=== PATIENT | male | born 1945 | race Caucasian/White ===

== ENCOUNTER 2016-05-14 16:17 | Emergency (ER) | payer OTHER, MEDICARE ==
--- NOTE | 2016-05-14 16:04 | EDPHY ---
H & P Time Seen by Provider: 05/14/16 16:17 HPI/ROS: CHIEF COMPLAINT: Irregular tachycardia, chest discomfort. HISTORY OF PRESENT ILLNESS: This patient is an anticoagulated 61 year old male arriving via EMS from [facility] who presents to the Emergency Department following an episode of irregular tachycardia and associated chest discomfort. Rapid heart rate began just TOUCHER UP while performing rehab exercises for a thumb injury. He describes feeling an unusual sensation in his chest and nausea at the start of the episode. Upon arrival, he continues to complain of chest discomfort, nausea, and lightheadedness. He has a history of multiple episodes of atrial flutter following mitral valve surgery in March 2015; his atrial flutter was treated using cardioversion. He has a cardiac pacemaker that was placed due to complete heart block complication during his initial surgery. He is followed by Dr. Benito Faith, etl bi developer. REVIEW OF SYSTEMS: A ten point review of systems was performed and is negative with the exception of the items mentioned in the HPI. Source: Patient, EMS Exam Limitations: No limitations - Medical/Surgical History PMH: 1. Atrial and mitral valve surgery 2014 2. Pacemaker placed for complete heart block 3. Atrial flutter 4. Hypothyroid - Social History Additional Social History: He is . He does not use tobacco products. - Physical Exam Exam: General Appearance: Alert. No distress. Vital signs reviewed. Heart rate in the 130s. BP 127/97. Eyes: Pupils equal and round, no conjunctival injection, no discharge. Anicteric. ENT, Mouth: Mucous membranes are moist, no oropharyngeal erythema or edema. Neck: No lymphadenopathy, supple. No carotid bruits. Respiratory: Lungs are clear to auscultation; no wheezes, rales, or rhonchi. Cardiovascular: Tachycardia; no murmur, rub, or gallop appreciated. Gastrointestinal: Abdomen is soft and nontender, no masses or organomegaly, bowel sounds normal. Skin: Warm and dry, no rashes on exposed skin, normal color. Back: Nontender to palpation over the thoracolumbar spine. No CVAT. Extremities: No lower extremity edema, no calf tenderness or swelling. Neurological: Alert and oriented. Moving all four extremities easily and equally. Psychiatric: Normal affect. Constitutional: Initial Vital Signs Temperature (C) 37.0 C 05/14/16 16:35 Heart Rate 137 H 05/14/16 16:35 Respiratory Rate 20 05/14/16 16:35 Blood Pressure 127/96 H 05/14/16 16:35 O2 Sat (%) 98 05/14/16 16:35 O2 Delivery Mode [Post Nasal Cannula Procedure 2nd] O2 Delivery Mode [Post Nasal Cannula Procedure 1st] O2 Delivery Mode [Procedural Non-Rebreather Mask 4th] O2 Delivery Mode [Procedural Non-Rebreather Mask 3rd] O2 Delivery Mode [Procedural Non-Rebreather Mask 2nd] O2 Delivery Mode [Procedural Non-Rebreather Mask 1st] O2 Delivery Mode [.Immediate Non-Rebreather Mask Pre-Procedure] O2 Delivery Mode Room Air O2 (L/minute) [Post Procedure 2 2nd] O2 (L/minute) [Post Procedure 2 1st] O2 (L/minute) [Procedural 4th] 15 O2 (L/minute) [Procedural 3rd] 15 O2 (L/minute) [Procedural 2nd] 15 O2 (L/minute) [Procedural 1st] 15 O2 (L/minute) [.Immediate Pre- 15 Procedure] O2 (L/minute) 15 Allergies/Adverse Reactions: ceftriaxone sodium [From Rocephin] Allergy (Severe, Verified 05/14/16 16:38) Other-Enter Comments cyclobenzaprine HCl [From Flexeril] Allergy (Verified 05/14/16 16:38) Itching sulfamethoxazole [From Bactrim] Allergy (Verified 05/14/16 16:38) trimethoprim [From Bactrim] Allergy (Verified 05/14/16 16:38) Home Medications: Medication Instructions Recorded Melatonin [Melatonin 3 MG (*)] 3 mg PO HS PRN 04/15/15 morphINE SR [Ms Contin/Oramorph 15 15 mg PO Q8 PRN 16 mg (*)] Dabigatran Etexilate Mesyl 150 mg PO BID 09/05/15 [Pradaxa 150 MG (*)] Polyethylene Glycol 3350 [Miralax 17 gm PO DAILY PRN 09/05/15 17 gm (*)] Levothyroxine [Synthroid 100 mcg 100 mcg PO DAILY06 03/28/16 (*)] oxyCODONE IR [Oxycodone Ir (*)] 5 - 10 mg PO Q4 PRN 03/28/16 Amitriptyline HCl [Elavil] 25 mg PO HS #10 tab 03/29/16 Medical Decision Making - Diagnostics EKG Interpretation: The 12 lead EKG was interpreted by myself: Atrial flutter with complete AV block , rate 141. See hard copy and/or "tracemaster" electronic copy for interpretation. Post-cardioversion EKG obtained and interpreted by myself: sinus rhythm rate 79. See hard copy and/or "tracemaster" electronic copy for interpretation. Procedures: Procedure: Procedural sedation. Indication: Cardioversion A pre-sedation evaluation was completed on the patient at 1652. The patient has an ASA class II and modified Mallampati class 3 airway. Patient is an appropriate candidate for procedural sedation. The risks, benefits, alternatives of sedation were discussed with the patient. Consent was obtained. The patient was pre-oxygenated with 100% O2 on a [id number] and moved to the procedure room where airway rescue equipment is available. A time out was observed. The patient was sedated with 100mg IV propofol. The patient was monitored with continuous pulse oximetry, gambling monitor, and end tidal CO2. There were no complications and no hypoxemia. The patient tolerated the procedure well and returned to baseline. I remained at the bedside for the sedation. The total time I spent in the procedural sedation was 8 minutes. ED Course/Re-evaluation: 1617: Took EMS report at bedside. Vitals stable through event and transport. HR 133. 94% on RA, BP 132/99, bgl 153. Prior medical records reviewed by myself: The patient has multiple visits to the ED this year for atrial flutter following mitral valve surgery in March 2015. The mitral valve procedure was complicated with complete heart block for which the patient has a pacemaker. In his most recent visit for similar complaints, the patient's pacemaker was interrogated and he was given amiodarone for conversion at that time without improvement. He was ultimately cardioverted. EKG and labs obtained. IV established. Vagal maneuvers attempted without improvement. HR remains at 144. 1638: Consultation with Dr. Benito Faith, cardiology, who will visit the patient in the ED and proceed with cardioversion. The patient tells me that he last ate at 1230 today when he had a lunch including salad and a sandwich. 1658: Dr. Faith is at bedside. The patient is placed under procedural sedation (see procedure note) and cardioversion is performed without complication. Repeat EKG obtained. 1725: Patient re-examined. He remains in sinus rhythm with a heart rate in the 70s. He does not have chest pain or shortness of breath. On auscultation is heart is regular. Lungs are clear. He will return home to follow up with his etl bi developer. Differential Diagnosis: Differential diagnosis includes but is not limited to myocardial ischemia, cardiomyopathy, valvular heart disease, sick sinus, thyrotoxicosis, PE, and infection. - Data Points Medications Given: Discontinued Medications Sodium Chloride (Ns) 1,000 mls @ 0 mls/hr IV ONCE ONE PRN Reason: Wide Open Stop: 05/14/16 18:24 Last Admin: 05/14/16 16:52 Dose: 1,000 mls Propofol (Diprivan) 100 mg IVP EDNOW ONE Stop: 05/14/16 18:24 Last Admin: 05/14/16 16:59 Dose: 100 mg Departure - Departure Disposition: Home, Routine, Self-Care Clinical Impression: Atrial flutter Qualifiers: Qualifier Code: (I48.92) Unspecified atrial flutter Condition: Good Instructions: Atrial Flutter (ED) Additional Instructions: 1. Call to schedule a follow-up appointment with Dr. Faith. 2. Return to the Emergency Department if you experience chest pain or discomfort , lightheadedness or dizziness, heart palpitations, nausea, or other worsening of condition. Referrals: Benito Faith MD [Medical Doctor] - As per Instructions Report Scribed for: Kimmy Nicole Report Scribed by: Nadine Ron Date of Report: 05/14/16 Time of Report: 16:05 Physician Review and Approval Statement: 05/14/16 16:04 Portions of this note were transcribed by the medical doctor. I, Dr. Kimmy Nicole, personally performed the history, physical exam, and medical decision- making; and confirmed the accuracy of the information in the transcribed note.
--- NOTE | 2016-05-14 16:28 | CPEKG ---
Heart Rate: 141 RR Interval: 426 QRSD Interval: 90 QT Interval: 344 QTC Interval: 527 QRS [place]: -3 T Wave [place]: 82 EKG Severity - ABNORMAL ECG - EKG Impression: A-FLUTTER/FIBRILLATION W/ COMPLETE AV BLOCK EKG Impression: PROBABLE INFERIOR INFARCT, OLD EKG Impression: PROLONGED QT INTERVAL Electronically Signed By: Kimmy Nicole 15-May-2016 10:25:30
[2016-05-14] MEDS ORDERED: ADENOSINE 6 MG/2 ML VIAL ONE (16:37)
[2016-05-14] MEDS ORDERED: PROPOFOL 200 MG/20 ML VIAL ONE (16:49)
--- NOTE | 2016-05-14 17:08 | CPEKG ---
Heart Rate: 79 RR Interval: 759 P-R Interval: 172 QRSD Interval: 96 QT Interval: 400 QTC Interval: 459 P [place]: 60 QRS [place]: -27 T Wave [place]: 68 EKG Severity - OTHERWISE NORMAL ECG - EKG Impression: SINUS RHYTHM EKG Impression: BORDERLINE LEFT AXIS DEVIATION Electronically Signed By: Kimmy Nicole 15-May-2016 10:25:20
--- NOTE | 2016-05-14 17:40 | CPIP ---
[f rep st] INVASIVE CARDIAC PROCEDURE DATE OF PROCEDURE: 05/14/2016 PROCEDURE: Elective direct current cardioversion. INDICATION FOR THE PROCEDURE: Persistent atrial flutter. HISTORY: Mr. Renato Boggs is a patient well-known to me from prior pacer insertion, sick sinus syndr ome, and paroxysmal atrial flutter, who presents to the emergency department for complaint of palpita tions and rapid heartbeat. He feels fatigued and short of breath, which is very similar to his prior symptoms. He denies recent travel. No leg or arm swelling. I was asked to see the patient for Car diology consultation, specifically for urgent cardioversion. NAME OF PROCEDURE: After n.p.o. status was confirmed and consent was obtained, the patient received propofol under the care of Dr. Kimmy Nicole, the emergency department physician. After adequate con scious sedation had been achieved, the patient underwent elective cardioversion with 100 joules of sy nchronized countershock delivered with the patch in the anterior-posterior position with subsequent r eturn of the rhythm to an atrial paced and V sensed rhythm. IMPRESSION: Successful elective direct current cardioversion. The patient will be discharged to [facility] once he is able to ambulate and take p.o. without assistance. He has been instructed to avoid caff eine and alcohol, strenuous activity for the next 14 days. /[id number]/MODL
[2016-05-14] MEDS ORDERED: PROPOFOL 200 MG/20 ML VIAL IVP ONE (18:23)
[2016-05-14] MEDS ORDERED: NS 1,000 ML IV ONE (18:23)
[2016-05-14 18:52] VITALS: BP 114/75; PULSE 71; RESP 16; O2SAT 96
[2016-05-14 18:53] VITALS: TEMP 98.1
== END 2016-05-14 18:52 | disposition home or self-care (01) ==
LOC: EDUNIT#
DX: I48.92 Unspecified atrial flutter (principal); Z95.0 Presence of cardiac pacemaker
CPT/HCPCS: 93005; 96374; 99285; J2704; J0153

== ENCOUNTER → 2016-05-31 | Outpatient (CLI) | payer OTHER, MEDICARE | LOC: FCPNEURO 20:00 | PROVIDERS: ATTEND Psychiatry & Neurology Sleep Medicine | DX: G47.33 Obstructive sleep apnea (adult) (pediatric) (principal) ==

== ENCOUNTER → 2016-11-05 | Outpatient (CLI) | payer OTHER, MEDICARE | LOC: FIMAGING 09:31 | PROVIDERS: ATTEND Physical Medicine & Rehabilitation | DX: M50.30 Other cervical disc degeneration, unspecified cervical region (principal); M47.892 Other spondylosis, cervical region; M12.88 Other specific arthropathies, not elsewhere classified, other specified site; M99.71 Connective tissue and disc stenosis of intervertebral foramina of cervical region; M43.22 Fusion of spine, cervical region; M43.24 Fusion of spine, thoracic region ==

== ENCOUNTER 2017-01-03 15:03 | Observation (INO) | payer OTHER, MEDICARE ==
--- NOTE | 2017-01-03 15:45 | CPEKG ---
Heart Rate: 131 RR Interval: 458 QRSD Interval: 88 QT Interval: 324 QTC Interval: 479 QRS [place]: 19 T Wave [place]: 80 EKG Severity - ABNORMAL ECG - EKG Impression: LIKELY ATRIAL FLUTTER EKG Impression: BORDERLINE PROLONGED QT INTERVAL EKG Impression: WITH 14 MAY 2016 AT 17:04, ATRIAL FLUTTER AND PROLONGED QT NOW PRESENT Electronically Signed By: Meghana Tyler 04-Jan-2017 21:18:34
--- NOTE | 2017-01-03 15:53 | EDPHY ---
H & P Time Seen by Provider: 01/03/17 15:52 HPI/ROS: Chief complaint. Palpitations HPI. 71-year-old male presents emergency department with fast and irregular heart rate since this morning. He is symptomatic with this including dizziness and fatigue with walking. He notes dyspnea on exertion today. He has had upper respiratory symptoms for the last several days and has been used K shins. He does have a previous history of atrial flutter as well as mitral valve repair and is on Eliquis. However he is not on medication for rate control. No fever. No abdominal pain. No unusual leg pain or swelling. ROS Constitutional. no fever/chills, no weakness Eyes. no problems with vision ENT. Congestion Cardiovascular. No chest pain. Fast irregular heart rate today Respiratory. Slight shortness of breath on exertion Abdominal. no abdominal pain, no nausea/vomiting, no diarrhea . no problems urinating MS. no calf pain/swelling, no neck/back pain, no joint pain Skin. no rash Lymph. no swollen glands Neuro. no headache, no dizziness, no difficulty walking or with speech Past Medical/Surgical History: Past medical history is significant for mitral valve regurgitation and repair. Pacemaker. Atrial flutter. Hypothyroidism, congestive heart failure, depression, Social History: , nonsmoker, no alcohol Smoking Status: Never smoked Physical Exam: General Appearance: Alert well-developed male moderate distress vital signs significant for heart rate 128 Eyes: Pupils equal and round no pallor or injection. ENT, Mouth: Mucous membranes are moist. Respiratory: There are no retractions, lungs are clear to auscultation. Cardiovascular: Irregularly irregular rate and rhythm Gastrointestinal: Abdomen is soft and nontender, no masses, bowel sounds normal. Neurological: Awake and alert, sensory and motor exams grossly normal. Skin: Warm and dry, no rashes. Musculoskeletal: Neck is supple nontender. Extremities symmetrical, full range of motion. Psychiatric: Patient is oriented X 3, there is no agitation. Constitutional: Initial Vital Signs Temperature (C) 36.4 C 01/03/17 15:20 Heart Rate 128 H 01/03/17 15:20 Respiratory Rate 16 01/03/17 15:20 Blood Pressure 105/70 01/03/17 15:20 O2 Sat (%) 98 01/03/17 15:20 O2 Delivery Mode Room Air Allergies/Adverse Reactions: ceftriaxone sodium [From Rocephin] Allergy (Severe, Verified 01/03/17 15:28) Other-Enter Comments cyclobenzaprine HCl [From Flexeril] Allergy (Verified 01/03/17 15:28) Itching sulfamethoxazole [From Bactrim] Allergy (Verified 01/03/17 15:28) trimethoprim [From Bactrim] Allergy (Verified 01/03/17 15:28) Home Medications: Medication Instructions Recorded Melatonin [Melatonin 3 MG (*)] 3 mg PO HS PRN 04/15/15 morphINE SR [Ms Contin/Oramorph 15 15 mg PO ,06/12/15 mg (*)] Levothyroxine [Synthroid 100 mcg 100 mcg PO DAILY06 03/28/16 (*)] oxyCODONE IR [Oxycodone Ir (*)] 5 - 10 mg PO Q4 PRN 03/28/16 Amitriptyline HCl [Elavil] 25 mg PO HS #10 tab 03/29/16 Acetaminophen [Tylenol ES 500 mg 500 mg PO Q6 PRN 01/03/17 (*)] Apixaban [Eliquis] 5 mg PO BID 01/03/17 Escitalopram Oxalate [Lexapro] 10 mg PO HS 01/03/17 Herbals/Supplements -Info Only 1 ea PO DAILY 01/03/17 Irbesartan [Avapro 75 mg (*)] 75 mg PO DAILY 01/03/17 Multivitamins [Multivitamin (*)] 1 each PO DAILY 01/03/17 Propylene Glycol/Peg 400/Pf 1 each OP PRN PRN 01/03/17 [Systane 0.3-0.4% Eye Drops] Medical Decision Making - Diagnostics EKG Interpretation: EKG interpreted by me shows atrial flutter/fibrillation. Normal axis. QRS is otherwise normal. There is no significant ST elevation or depression. Ventricular response 131 Imaging Results: Imaging Impressions Chest X-Ray 01/03/17 16:08 Impression: 1. Postoperative change following prior median sternotomy and mitral and tricuspid valvuloplasties. 2. Normal-sized heart, with no evidence of congestive heart failure. 3. Linear subsegmental atelectasis versus scar at the lateral right lung base. 4. Asymmetric right paratracheal soft tissue prominence which may reflect tortuous innominate vasculature or thyroid gland enlargement, and may be augmented because of the leftward rotational change (compared to previous exams) . If there is further clinical concern, chest CT imaging could be considered. Procedures: IV normal saline, monitor. Diltiazem bolus and drip ED Course/Re-evaluation: 4:50 p.m. and heart rate is 79 with blood pressure 102/64. On the monitor it appears the patient is in sinus rhythm. We will repeat an EKG The diltiazem drip is discontinued. Patient remained somewhat hypertensive at about 90/60. Patient subsequently goes back into atrial fibrillation flutter with blood pressure of about 90/60 and heart rate approximately 130. I have discussed the findings with the patient and his . The including recommendation for hospitalization overnight I consulted and discussed the case Dr. Martinez, hospitalist, who sees the patient in the emergency department I consulted and discussed case with Dr. Hanson, cardiology, who agrees with treatment plan Differential Diagnosis: No evidence of acute MT or acute coronary syndrome. Recurrent atrial fib flutter in the emergency department with continued hypotension Critical Care Time: Critical care time exclusive procedures 40 minutes - Data Points Laboratory Results: Laboratory Results 01/03/17 15:50 01/03/17 15:50 01/03/17 01/03/17 01/03/17 15:50 15:50 15:50 WBC 7.49 10^3/uL 10^3/uL (3.80-9.50) RBC 4.94 10^6/uL 10^6/uL (4.40-6.38) Hgb 16.1 g/dL g/dL (13.7-17.5) Hct 46.4 % % (40.0-51.0) MCV 93.9 fL fL (81.5-99.8) MCH 32.6 pg pg (27.9-34.1) MCHC 34.7 g/dL g/dL (32.4-36.7) RDW 13.2 % % (11.5-15.2) Plt Count 155 10^3/uL 10^3/uL (150-400) MPV 9.5 fL fL (8.7-11.7) Neut % (Auto) 59.2 % % (39.3-74.2) Lymph % (Auto) 22.8 % % (15.0-45.0) [place] % (Auto) 16.4 % H % (4.5-13.0) Eos % (Auto) 0.9 % % (0.6-7.6) Baso % (Auto) 0.4 % % (0.3-1.7) Nucleat RBC Rel Count 0.0 % % (0.0-0.2) Absolute Neuts (auto) 4.43 10^3/uL 10^3/uL (1.70-6.50) Absolute Lymphs (auto) 1.71 10^3/uL 10^3/uL (1.00-3.00) Absolute Monos (auto) 1.23 10^3/uL H 10^3/uL (0.30-0.80) Absolute Eos (auto) 0.07 10^3/uL 10^3/uL (0.03-0.40) Absolute Basos (auto) 0.03 10^3/uL 10^3/uL (0.02-0.10) Absolute Nucleated RBC 0.00 10^3/uL 10^3/uL (0-0.01) Immature Gran % 0.3 % % (0.0-1.1) Immature Gran # 0.02 10^3/uL 10^3/uL (0.00-0.10) Sodium 135 mEq/L mEq/L (134-144) Potassium 4.2 mEq/L mEq/L (3.5-5.2) Chloride 101 mEq/L mEq/L (97-110) Carbon Dioxide 23 mEq/l mEq/l (22-31) Anion Gap 11 mEq/L mEq/L (8-16) BUN 19 mg/dL mg/dL (7-23) Creatinine 1.2 mg/dL mg/dL (0.7-1.3) Estimated GFR 60 Glucose 75 mg/dL mg/dL (70-100) Calcium 9.6 mg/dL mg/dL (8.5-10.4) Troponin I < 0.012 ng/mL ng/mL (0.000-0.034) NT-Pro-B Natriuret Pep 1050 pg/mL H pg/mL (0-125) Medications Given: Amitriptyline HCl (Elavil) 25 mg PO HS SERA Stop: 07/02/17 20:59 Last Admin: 01/03/17 21:59 Dose: 25 mg Apixaban (Eliquis) 5 mg PO BID [facility] Stop: 07/02/17 20:59 Last Admin: 01/03/17 21:58 Dose: 5 mg Diltiazem HCl (Cardizem Immediate Release) 30 mg PO Q6H SERA Stop: 07/02/17 21:29 Last Admin: 01/03/17 23:00 Dose: Not Given Escitalopram Oxalate (Lexapro) 10 mg PO HS SERA Stop: 07/02/17 20:59 Last Admin: 01/03/17 21:58 Dose: 10 mg Sodium Chloride (Ns) 1,000 mls @ 75 mls/hr IV CONT SERA Stop: 07/02/17 19:14 Last Admin: 01/03/17 20:22 Dose: 1,000 mls Melatonin (Melatonin) 3 mg PO HS PRN PRN Reason: INSOMNIA Stop: 07/02/17 20:18 Last Admin: 01/03/17 21:59 Dose: 3 mg Morphine Sulfate (Ms Contin/Oramorph) 15 mg PO [facility] Stop: 01/13/17 21:59 Last Admin: 01/03/17 21:58 Dose: 15 mg Oxycodone HCl (Oxycodone Ir) 5 - 10 mg PO Q4 PRN PRN Reason: Pain, Severe Stop: 01/13/17 20:18 Last Admin: 01/03/17 22:01 Dose: 10 mg Discontinued Medications Diltiazem HCl (Cardizem 25 Mg/5 Ml Vial) 20 mg IVP EDNOW ONE Stop: 01/03/17 16:08 Last Admin: 01/03/17 16:36 Dose: 20 mg Diltiazem HCl 125 mg/ Dextrose 125 mls @ 0 mls/hr IV EDNOW ONE; As Directed PRN Reason: Protocol Stop: 01/03/17 16:08 Last Admin: 01/03/17 16:42 Dose: 125 mls Sodium Chloride (Ns) 1,000 mls @ 0 mls/hr IV EDNOW ONE; Wide Open PRN Reason: Protocol Stop: 01/03/17 16:08 Last Admin: 01/03/17 16:36 Dose: 1,000 mls Sodium Chloride (Ns) 500 mls @ 0 mls/hr IV ONCE ONE PRN Reason: Wide Open Stop: 01/03/17 23:01 Last Admin: 01/03/17 22:25 Dose: 500 mls Departure - Departure Disposition: [facility] Clinical Impression: Atrial fibrillation Qualifiers: Atrial fibrillation type: paroxysmal Qualified Code(s): I48.0 - Paroxysmal atrial fibrillation Condition: Fair
[2017-01-03 16:00] LABS: % IMMATURE GRANULYOCYTES 0.3 % (0.0-1.1); ABSOLUTE IMMATURE GRANULOCYTES 0.02 10^3/uL (0.00-0.10); ADD DIFF? NO; ADD MORPH? NO; ADD SCAN? NO; ATYPICAL LYMPHOCYTE FLAG 20 (0-99); FRAGMENT RBC FLAG 0 (0-99); HEMATOCRIT 46.4 % (40.0-51.0); HEMOGLOBIN 16.1 g/dL (13.7-17.5); LEFT SHIFT FLG 0 (0-99); LIPEMIA HEMOLYSIS FLAG 90 (0-99); MEAN CELL HEMOGLOBIN 32.6 pg (27.9-34.1); MEAN CELL HEMOGLOBIN CONCENTR. 34.7 g/dL (32.4-36.7); MEAN CELL VOLUME 93.9 fL (81.5-99.8); MEAN PLATELET VOLUME 9.5 fL (8.7-11.7); PLATELET CLUMPS FLAG 10 (0-99); PLATELET COUNT 155 10^3/uL (150-400); RED BLOOD CELL COUNT 4.94 10^6/uL (4.40-6.38); RED CELL DISTRIBUTION WIDTH 13.2 % (11.5-15.2)
[2017-01-03] MEDS ORDERED: DILTIAZEM 25 MG/5 ML VIAL IVP ONE (16:07)
[2017-01-03] MEDS ORDERED: NS 1,000 ML IV ONE (16:07)
[2017-01-03] MEDS ORDERED: DILTIAZEM 125 MG in D5W 125 ML IV ONE (16:07)
[2017-01-03 16:21] LABS: ANION GAP 11 mEq/L (8-16); CALCIUM 9.6 mg/dL (8.5-10.4); CARBON DIOXIDE 23 mEq/l (22-31); CHLORIDE 101 mEq/L (97-110); CREATININE 1.2 mg/dL (0.7-1.3); GLOMERULAR FILTRATION RATE 60; GLUCOSE 75 mg/dL (70-100); POTASSIUM 4.2 mEq/L (3.5-5.2); SODIUM 135 mEq/L (134-144)
--- NOTE | 2017-01-03 17:06 | CPEKG ---
Heart Rate: 79 RR Interval: 759 P-R Interval: 173 QRSD Interval: 158 QT Interval: 452 QTC Interval: 519 P [place]: 0 QRS [place]: -88 T Wave [place]: 78 EKG Severity - ABNORMAL ECG - EKG Impression: A-V DUAL-PACED RHYTHM WITH SOME INHIBITION EKG Impression: COMPARED WITH 03 JAN 2017 AT 15:44, PACING NOW PRESENT Electronically Signed By: Meghana Tyler 04-Jan-2017 21:17:48
[2017-01-03 17:31] LABS: TROPONIN I < 0.012 ng/mL (0.000-0.034)
--- NOTE | 2017-01-03 18:49 | CPEKG ---
Heart Rate: 135 RR Interval: 444 P-R Interval: 70 QRSD Interval: 86 QT Interval: 336 QTC Interval: 504 P [place]: 0 QRS [place]: -1 T Wave [place]: 79 EKG Severity - ABNORMAL ECG - EKG Impression: SINUS TACHYCARDIA EKG Impression: MINIMAL ST DEPRESSION, INFERIOR LEADS EKG Impression: PROLONGED QT INTERVAL Electronically Signed By: Meghana Tyler 04-Jan-2017 21:17:03
[2017-01-03] MEDS ORDERED: ACETAMINOPHEN 325 MG TAB PO PRN (19:07)
[2017-01-03] MEDS ORDERED: TEMAZEPAM 15 MG CAP PO PRN (19:07)
[2017-01-03] MEDS ORDERED: ONDANSETRON 4 MG/2 ML VIAL IVP PRN (19:07)
[2017-01-03] MEDS ORDERED: ONDANSETRON DISINTEGRATING 4 MG TAB PO PRN (19:07)
[2017-01-03] MEDS ORDERED: DILTIAZEM 125 MG in D5W 125 ML IV SCH (19:15)
--- NOTE | 2017-01-03 19:41 | GHP ---
[f rep st] HISTORY AND PHYSICAL DATE OF ADMISSION: 01/03/2017 CHIEF COMPLAINT: Palpitations. HISTORY OF PRESENT ILLNESS: This is a 71-year-old man with a history of atrial flutter and mitral valve replacement for severe mitral regurgitation, who has had a cold for the past few days. He took some decongestant, which he does not believe contained ephedrine, last night. He woke up this morning feeling poorly , with palpitations. He has had a little bit of lightheadedness, no real presyncope or syncope. He denies any chest pain as well. He has a history of A flutter which has required cardioversion in the past. He is taking Eliquis 5 mg b.i.d., but no violette blockers at this point. He has a history of many DC cardioversions (last 04/2016) as well as an atrial flutter ablation 08/[address] Darden. He has a pacemaker placed 03/1025 after a sinus arrest following his mitral valve replacement. His vacuum cleaner assembler is Dr. Faith. PAST MEDICAL/SURGICAL HISTORY: 1. Mitral regurgitation, status post repair. 2. Atrial fib, with a pacer. 3. Chronic pain, on continuous narcotics. 4. Hypothyroid. 5. Hypertension. 6. Depression. 7. Complex and optic migraines. 8. Diastolic CHF. MEDICATIONS: Please see medication reconciliation. ALLERGIES: Rocephin. Flexeril. Bactrim. FAMILY HISTORY: Parents are . SOCIAL HISTORY: He is . He rarely drinks alcohol, does not smoke. REVIEW OF SYSTEMS: A 10-point review of systems is conducted and is negative, except per HPI. PHYSICAL EXAMINATION: VITAL SIGNS: Blood pressure 84/65, heart rate 137, respiration rate 14, satting 97% on room air. Temperature is 36.4. GENERAL: The patient is a pleasant man who appears comfortable, in no acute distress. HEENT: Normocephalic, atraumatic. CARDIOVASCULAR: Tachycardic. He is irregularly irregular. I do not appreciate any murmurs, rubs, or gallops. PULMONARY: Lungs clear to auscultation bilaterally. ABDOMEN: Soft, nontender , nondistended. SKIN: No rash. : No [place]. NEUROLOGIC: Alert and oriented x3. He is moving all extremities. PSYCHIATRIC: Normal mood and affect. LABORATORY DATA: CBC is normal. Troponin is negative. BNP is 1000. Creatinine is 1.2. DATA: 1. I discussed this Dr. Edwards. Will admit to PCU. 2. I reviewed his EKGs and telemetry. Rate of 135, narrow complex. I think that this is probably either A flutter or an atrial tachycardia. IMPRESSION AND PLAN: 71-year-old man presents with a narrow complex tachycardia. 1. Narrow complex tachycardia: Given his history, this is probably atrial fibrillation, though it is pretty regular. I also consider an atrial tachycardia as well as a supraventricular tachycardia. Lead II does seem to show retrograde P waves. Regardless, he is mildly hypotensive but tolerating this well. He was placed on a diltiazem drip, which I agree with. If he becomes more hypotensive, would stop the diltiazem drip and start amiodarone. I will also give him some fluids. I do note that he has an elevated BNP around 1000. Cardiology has been consulted. He is on Eliquis. 2. Chronic pain, on continuous narcotics: We will continue his home doses of narcotics. 3. Pacemaker in place. 4. Mitral regurgitation, status post mitral valve repair. 5. Hypertension: Hold antihypertensives. 6. Code status: Full code. /[id number]/MODL MTDD
[2017-01-03] MEDS ORDERED: MELATONIN 3 MG TAB PO PRN (20:19)
[2017-01-03] MEDS: NS 1,000 ML IV SCH (20:22)
[2017-01-03] MEDS ORDERED: TEARS/DEXTRAN 70/HYPROMELLOSE 15 ML OPHT.BTL EACHEYE PRN (20:24)
[2017-01-03] MEDS ORDERED: AMITRIPTYLINE HCL 25 MG TAB PO SCH (21:00)
[2017-01-03] MEDS ORDERED: ESCITALOPRAM OXALATE 10 MG TAB PO SCH (21:00)
[2017-01-03] MEDS: morphINE SR 15 MG TAB PO SCH (21:58)
[2017-01-03] MEDS: APIXABAN 5 MG TAB PO SCH (21:58)
[2017-01-03] MEDS: oxyCODONE IR 5 MG TAB PO PRN (22:01)
[2017-01-03] MEDS: DILTIAZEM 30 MG TAB PO SCH (23:00)
[2017-01-03] MEDS ORDERED: NS BOLUS 500 ML (Wide open) IV ONE (23:00)
[2017-01-04] MEDS: DILTIAZEM 30 MG TAB PO SCH ×3 (04:30→17:09)
[2017-01-04 05:28] LABS: INR 1.29 (0.83-1.16); PROTIME(PATIENT) 16.1 SEC (12.0-15.0)
[2017-01-04 05:29] LABS: APTT 35.1 SEC (23.0-38.0); MAGNESIUM 1.8 mg/dL (1.6-2.3)
[2017-01-04 05:42] LABS: TROPONIN I < 0.012 ng/mL (0.000-0.034)
[2017-01-04] MEDS: morphINE SR 15 MG TAB PO SCH ×2 (05:46→17:08)
[2017-01-04] MEDS ORDERED: LEVOTHYROXINE 100 MCG TAB PO SCH (06:00)
[2017-01-04] MEDS ORDERED: NS 500 ML IV ONE ×2 (07:45→14:37)
[2017-01-04 08:46] LABS: ANION GAP 7 mEq/L (8-16); CALCIUM 8.2 mg/dL (8.5-10.4); CARBON DIOXIDE 22 mEq/l (22-31); CHLORIDE 111 mEq/L (97-110); CREATININE 0.9 mg/dL (0.7-1.3); GLOMERULAR FILTRATION RATE > 60; GLUCOSE 79 mg/dL (70-100); POTASSIUM 4.4 mEq/L (3.5-5.2); SODIUM 140 mEq/L (134-144)
[2017-01-04] MEDS: NS 1,000 ML IV SCH (08:50)
[2017-01-04] MEDS: APIXABAN 5 MG TAB PO SCH (08:51)
[2017-01-04] MEDS: oxyCODONE IR 5 MG TAB PO PRN (10:42)
--- NOTE | 2017-01-04 14:13 | HOSPPROG ---
Hospitalist Progress Note Assessment/Plan: * a flutter with rapid ventricular response * cardiology consulted - probably needs cardioversion * history of mitral valve repair * history pacemaker * chronic pain Subjective: still feels a little bit dizzy when heart rate goes up Objective: Vital Signs Temp Pulse Resp BP Pulse Ox 37.0 C 82 19 86/59 L 97 01/04/17 11:11 01/04/17 11:11 01/04/17 11:11 01/04/17 11:11 01/04/17 11:11 Laboratory Results 01/04/17 08:19 01/03/17 01/04/17 01/05/17 05:59 05:59 05:59 Intake Total 3365 Output Total 1200 400 Balance 2165 -400 PT 16.1 SEC (12.0-15.0) H 01/04/17 05:05 INR 1.29 (0.83-1.16) H 01/04/17 05:05 discussed with Cardiology tele personally viewed interpreted a flutter with rapid ventricular response - Physical Exam Constitutional: no apparent distress, appears nourished, not in pain Eyes: anicteric sclera, EOMI Ears, Nose, Mouth, Throat: moist mucous membranes, hearing normal, oral thrush Cardiovascular: tachycardia Respiratory: no respiratory distress, no rales or rhonchi, clear to auscultation Gastrointestinal: normoactive bowel sounds, soft, non-tender abdomen, no palpable masses Skin: warm Neurologic: AAOx3 Psychiatric: interacting appropriately, not anxious, not encephalopathic, thought process linear ICD10 Worksheet Patient Problems: Problems Problem Status Onset Atrial fibrillation Acute Complete heart block, post-surgical Acute Expressive aphasia Acute Severe mitral regurgitation Acute Status post mitral valve repair Acute Status post placement of cardiac pacemaker Acute Status post tricuspid valve repair Acute Tachyarrhythmia Acute Tricuspid valve regurgitation, secondary Acute Chronic back pain Chronic Chronic narcotic dependence Chronic Hypothyroidism Chronic
[2017-01-04] MEDS ORDERED: ETOMIDATE 20 MG/10 ML VIAL IVP ONE (14:37)
[2017-01-04] MEDS ORDERED: MIDAZOLAM 2 MG/2 ML VIAL IVP ONE (14:37)
[2017-01-04] MEDS ORDERED: BENZOCAINE UNIT DOSE SPRAY HURRICAINE MM ONE (14:37)
[2017-01-04] MEDS ORDERED: fentaNYL 100 MCG/2 ML INJ IVP ONE (14:37)
[2017-01-04] MEDS ORDERED: ATROPINE SULFATE 1 MG/10 ML SYR IVP ONE (14:37)
[2017-01-04] MEDS ORDERED: PROPOFOL 200 MG/20 ML VIAL ONE (15:46)
--- NOTE | 2017-01-04 15:56 | PDTEE1 ---
STUART Cardioversion Procedure Procedure: Electrical Cardioversion Indications: Other (atrial flutter) Anticoagulation: Eliquis Procedural Details: Pads were placed in anterior-posterior position. Synchronized cardioversion attempt #1: 200J Results: Normal sinus rhythm Conclusions: Successful Cardioversion Patient Problems: Problems Problem Status Onset Severe mitral regurgitation Acute Tricuspid valve regurgitation, secondary Acute Chronic back pain Chronic Chronic narcotic dependence Chronic Hypothyroidism Chronic Status post mitral valve repair Acute Status post tricuspid valve repair Acute Complete heart block, post-surgical Acute Status post placement of cardiac pacemaker Acute Tachyarrhythmia Acute Expressive aphasia Acute Atrial fibrillation Acute
--- NOTE | 2017-01-04 16:00 | PDANEPAE ---
ANE History of Present Illness 71M with AF presents for CV ANE Past Medical History - Cardiovascular History Hx Hypertension: No Hx Arrhythmias: Yes Hx Chest Pain: No Hx Coronary Artery / Peripheral Vascular Disease: No Hx CHF / Valvular Disease: No Hx Palpitations: No Cardiovascular History Comment: MITRAL REGURGITATION. MITRAL VALVE PROLAPSE. TRICUPSID VALVE PROLAPSE. NO SOB, SOME FATIGUE - Pulmonary History Hx COPD: No Hx Asthma/Reactive Airway Disease: No Hx Recent Upper Respiratory Infection: No Hx Oxygen in Use at Home: Yes O2 in Use at Home (L/minute): cpap Hx Sleep Apnea: Yes - Neurologic History Hx Cerebrovascular Accident: No Hx Seizures: No Hx Dementia: No Neurologic History Comment: DDD. SCOLIOSIS - Endocrine History Hx Diabetes: No - Renal History Hx Renal Disorders: No - Liver History Hx Hepatic Disorders: No - Neurological & Psychiatric Hx Hx Neurological and Psychiatric Disorders: No - Cancer History Hx Cancer: No - Congenital Disorder History Hx Congenital Disorders: No - GI History Hx Gastrointestinal Disorders: Yes Gastrointestinal History Comment: CONSTIPATION FROM PAIN MEDICATIONS - Other Health History Other Health History: NONE - Chronic Pain History Chronic Pain: Yes (UPPER THORACIC AREA AND RIGHT SIDE OF BACK OF HEAD) - Surgical History Prior Surgeries: PAIN INJECTION WITH DR BRITTON 03/14/15. 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 THORACOTOMY 1993 D/T STREP PNA AND EMPYEMA. 1999 LEFT AND RIGHT SHOULDER SURGERIES ANE Review of Systems Review of Systems: - Exercise capacity Exercise capacity: <4 METS - Pacemaker Pacemaker Decay Control Operator: Biotronik Pacemaker Model: Eluna 8 DR Max Quiñones Pacemaker Mode: VVI ANE Patient History - Allergies Allergies/Adverse Reactions: ceftriaxone sodium [From Rocephin] Allergy (Severe, Verified 01/03/17 15:28) Other-Enter Comments cyclobenzaprine HCl [From Flexeril] Allergy (Verified 01/03/17 15:28) Itching sulfamethoxazole [From Bactrim] Allergy (Verified 01/03/17 15:28) trimethoprim [From Bactrim] Allergy (Verified 01/03/17 15:28) - Home Medications Home Medications: Melatonin [Melatonin 3 MG (*)] 3 mg PO HS PRN 04/15/15 [Last Taken 01/02/17] morphINE SR [Ms Contin/Oramorph 15 mg (*)] 15 mg PO 06/12/15 [Last Taken 01/03/17] Levothyroxine [Synthroid 100 mcg (*)] 100 mcg PO DAILY06 03/28/16 [Last Taken ] oxyCODONE IR [Oxycodone Ir (*)] 5 - 10 mg PO Q4 PRN 03/28/16 [Last Taken ] Acetaminophen [Tylenol ES 500 mg (*)] 500 mg PO Q6 PRN 01/03/17 [Last Taken Unknown] Apixaban [Eliquis] 5 mg PO BID 01/03/17 [Last Taken 01/03/17 08:00] Escitalopram Oxalate [Lexapro] 10 mg PO HS 01/03/17 [Last Taken 01/02/17] Herbals/Supplements -Info Only 1 ea PO DAILY 01/03/17 [Last Taken 01/03/17 08:00 ] Irbesartan [Avapro 75 mg (*)] 75 mg PO DAILY 01/03/17 [Last Taken 01/03/17] Multivitamins [Multivitamin (*)] 1 each PO DAILY 01/03/17 [Last Taken 01/03/17] Propylene Glycol/Peg 400/Pf [Systane 0.3-0.4% Eye Drops] 1 each OP PRN PRN 01/03 [Last Taken Unknown] - Anes Hx Anes Hx: no prior problems - Smoking Hx Smoking Status: Never smoked - Family Anes Hx Family Hx Anesthesia Complications: NONE ANE Labs/Vital Signs - Labs Result Diagrams: 01/03/17 15:50 01/04/17 08:19 - Vital Signs Blood Pressure: 86/59 Heart Rate: 82 Respiratory Rate: 19 O2 Sat (%): 97 Height: 180.34 cm Weight: 81.6 kg ANE Physical Exam - Airway Neck exam: FROM Mallampati Score: Class 2 Mouth exam: normal dental/mouth exam - Pulmonary Pulmonary: no respiratory distress - Cardiovascular Cardiovascular: regular rate and rhythym - ASA Status ASA Status: III ANE Anesthesia Plan Anesthesia Plan: GA with mask Urgent/Emergent Case: Arabellatr velasquezricarda completed preop but documented later for safe timely pt care
--- NOTE | 2017-01-04 16:01 | POSTANESTH ---
Post Anesthetic Evaluation Cardiovascular Status: Normal, Stable Respiratory Status: Normal, Stable Level of Consciousness/Mental Status: Can Participate in Eval Pain Control: Adequate, Prn Tx Ordered Nausea/Vomiting Control: Adequate, Prn Tx Ordered Complications Possibly Related to Anesthesia: None Noted
--- NOTE | 2017-01-04 16:01 | CPEKG ---
Heart Rate: 70 RR Interval: 857 P-R Interval: 164 QRSD Interval: 104 QT Interval: 384 QTC Interval: 415 QRS [place]: -21 T Wave [place]: 70 EKG Severity - ABNORMAL ECG - EKG Impression: ATRIAL-PACED RHYTHM EKG Impression: PROBABLE INFERIOR INFARCT, AGE INDETERMINATE EKG Impression: NONSPECIFIC T ABNORMALITIES, ANTERIOR LEADS EKG Impression: COMPARED WITH 03 JAN 2017 AT 18:45, A PACING AND REPOL ABNL NOW PRESENT Electronically Signed By: Meghana Tyler 04-Jan-2017 21:16:52
[2017-01-04 16:57] VITALS: BP 111/79; PULSE 70; RESP 14; TEMP 97.9; O2SAT 98
--- NOTE | 2017-01-04 18:38 | GCON ---
[f rep st] CONSULTATION DATE OF CONSULTATION: 01/04/2017 CHIEF COMPLAINT: Atrial flutter. HISTORY OF PRESENT ILLNESS: The patient is a 71-year-old male with a history of mitral valve and tri cuspid valve repair as well as left atrial appendage closure in March 2015. He also has a history of atrial flutter with tachy induced cardiomyopathy. He had a flutter ablation with Dr. Jorje Darden in August 2015 but has required at least 1 cardioversion for atrial flutter since that time and that car dioversion occurred in April 2016. He also has unknown thrombus in his left atrial appendage which was partially oversewn. Yesterday morning he woke up with a fluttering in his chest with associated lightheadedness. It persisted and therefore, he presented to the hospital. He was found to be in a trial flutter with rapid ventricular rates. He was given diltiazem but became hypotensive with the m edication. He currently denies any syncope, chest pain, lower extremity edema, PND, or orthopnea. PAST MEDICAL HISTORY: Mitral and tricuspid valve repair, pacemaker placement for sick sinus syndrome , atrial fibrillation, status post multiple cardioversions, obstructive sleep apnea on CPAP, hypothyr oidism, hypertension, depression, optic migraines, chronic pain. MEDICATIONS: Please see the chart. ALLERGIES: Rocephin, Flexeril, and Bactrim. SOCIAL HISTORY: He is currently . He denies any tobacco use. REVIEW OF SYSTEMS: Negative except for what is stated in the H and P. PHYSICAL EXAMINATION: GENERAL: Patient appears in no acute distress. VITAL SIGNS: Blood pressure 86/59, heart rate 82, oxygen saturation 97% on room air, afebrile. LUNGS: Clear to auscultation. N o wheezes, rhonchi, or crackles auscultated. CARDIAC: Irregular rate and rhythm without any signifi cant murmurs, rubs or gallops appreciated. ABDOMEN: Soft, nontender, nondistended. Bowel sounds pr esent. EXTREMITIES: Palpable pulses bilaterally without any evidence of edema. NECK: No JVD or br uit present. SKIN: No obvious rashes or ecchymosis identified. NEUROLOGIC: Nonfocal. PSYCHIATRIC : Mood and affect appropriate. LABORATORY: Troponin negative x3. BNP 1050. EKG: Atrial flutter at a rate of 135 beats per minute. ASSESSMENT: The patient is a 71-year-old male who presents today in atrial flutter. PLAN: The patient is a 71-year-old male with a history of atrial flutter and tachycardiac induced ca rdiomyopathy. He presents today in atrial flutter with rapid ventricular rates. He was given diltia zem but unfortunately became hypotensive. He has also failed metoprolol therapy in the past secondar y to weakness and shortness of breath. He has also had a flutter ablation which was unsuccessful. Miguel Ángel acuñaen his prior history, we will proceed with a cardioversion today. He is on Eliquis 5 mg twice malachi y. The patient was discussed with Dr. Artie Chaudhry, who agrees with the above. He should be able to be discharged after his cardioversion today. /[id number]/MODL
--- NOTE | 2017-01-05 15:10 | GDS ---
[f rep st] DISCHARGE SUMMARY DISCHARGE DIAGNOSES: 1. Atrial flutter with rapid ventricular response. 2. History of above. 3. History of mitral regurgitation, status post repair. HISTORY: This is a 71-year-old male who had an upper respiratory tract infection a few days ago, and then came into the hospital with dizziness. HOSPITAL COURSE: The patient was found to be in A flutter. He was started on a Cardizem drip. This kept his rate down. Cardiology was consulted. He underwent cardioversion and was restored to alex l sinus rhythm. He will be discharged home with followup with Cardiology. /[id number]/MODL
== END 2017-01-04 18:25 | disposition home or self-care (01) ==
LOC: INTOOBSV 18:52 → F2W 19:43
PROVIDERS: ADMIT Student in an Organized Health Care Education/Training Program; ATTEND Internal Medicine
PROC: 5A2204Z Restoration of Cardiac Rhythm, Single (ICD-10-PCS; principal; 2017-01-03)
DX: I48.92 Unspecified atrial flutter (principal); I49.5 Sick sinus syndrome; I34.0 Nonrheumatic mitral (valve) insufficiency; I50.30 Unspecified diastolic (congestive) heart failure; I42.9 Cardiomyopathy, unspecified; E03.9 Hypothyroidism, unspecified; F32.9 Major depressive disorder, single episode, unspecified; G89.29 Other chronic pain; I11.0 Hypertensive heart disease with heart failure; G47.33 Obstructive sleep apnea (adult) (pediatric); G43.819 Other migraine, intractable, without status migrainosus; I24.0 Acute coronary thrombosis not resulting in myocardial infarction; Z95.4 Presence of other heart-valve replacement; Z95.0 Presence of cardiac pacemaker; Z79.01 Long term (current) use of anticoagulants
CPT/HCPCS: 71010; 92960; 93005; G0378; J2704; 96365

== ENCOUNTER 2017-02-05 07:16 | Observation (INO) | payer OTHER, MEDICARE ==
[2017-02-05] MEDS ORDERED: NS 1,000 ML IV ONE (07:19)
--- NOTE | 2017-02-05 07:46 | CPEKG ---
Heart Rate: 70 RR Interval: 857 P-R Interval: 232 QRSD Interval: 100 QT Interval: 388 QTC Interval: 419 QRS [place]: -21 T Wave [place]: 68 EKG Severity - ABNORMAL ECG - EKG Impression: ATRIAL-PACED RHYTHM EKG Impression: BORDERLINE LEFT AXIS DEVIATION Electronically Signed By: Jorje Darden 05-Feb-2017 20:12:40
[2017-02-05] MEDS ORDERED: HEPARIN 10,000 UNIT/10 ML MDV ONE ×2 (08:01→08:21)
[2017-02-05] MEDS ORDERED: LIDOCAINE 1% 300 MG/30 ML SDV ONE (08:01)
[2017-02-05] MEDS ORDERED: BUPIVACAINE 0.5% 30 ML SDV ONE (08:02)
[2017-02-05] MEDS ORDERED: ISOPROTERENOL HCL/D5W 0.2 MG/50 ML BAG IV ONE (08:02)
[2017-02-05 08:04] LABS: % IMMATURE GRANULYOCYTES 0.2 % (0.0-1.1); ABSOLUTE IMMATURE GRANULOCYTES 0.01 10^3/uL (0.00-0.10); ADD DIFF? NO; ADD MORPH? NO; ADD SCAN? NO; ATYPICAL LYMPHOCYTE FLAG 10 (0-99); FRAGMENT RBC FLAG 0 (0-99); HEMATOCRIT 43.9 % (40.0-51.0); HEMOGLOBIN 15.5 g/dL (13.7-17.5); LEFT SHIFT FLG 0 (0-99); LIPEMIA HEMOLYSIS FLAG 90 (0-99); MEAN CELL HEMOGLOBIN 33.2 pg (27.9-34.1); MEAN CELL HEMOGLOBIN CONCENTR. 35.3 g/dL (32.4-36.7); MEAN PLATELET VOLUME 9.8 fL (8.7-11.7); PLATELET CLUMPS FLAG 0 (0-99); PLATELET COUNT 150 10^3/uL (150-400); RED BLOOD CELL COUNT 4.67 10^6/uL (4.40-6.38); RED CELL DISTRIBUTION WIDTH 13.5 % (11.5-15.2)
[2017-02-05 08:19] LABS: INR 1.05 (0.83-1.16); PROTIME(PATIENT) 13.6 SEC (12.0-15.0)
[2017-02-05 08:20] LABS: APTT 32.6 SEC (23.0-38.0)
[2017-02-05] MEDS ORDERED: HEPARIN/DEXTROSE 25,000 UNIT/500 ML BAG ONE (08:20)
[2017-02-05 08:29] LABS: ANION GAP 11 mEq/L (8-16); CALCIUM 9.5 mg/dL (8.5-10.4); CARBON DIOXIDE 22 mEq/l (22-31); CHLORIDE 106 mEq/L (97-110); GLOMERULAR FILTRATION RATE > 60; GLUCOSE 77 mg/dL (70-100); MAGNESIUM 1.8 mg/dL (1.6-2.3); POTASSIUM 4.5 mEq/L (3.5-5.2); SODIUM 139 mEq/L (134-144)
--- NOTE | 2017-02-05 08:38 | PDHPUP ---
History & Physical Update H&P update statement: This history and physical update is based on an assessment of the patient which was completed after admission or registration (within 24 hours), but prior to the surgery/procedure. H&P update: H&P reviewed & patient examined, no change in patient's condition since H&P completed
[2017-02-05] MEDS ORDERED: PROPOFOL/EMULSION 500 MG/50 ML BOTTLE IV ONE (09:03)
[2017-02-05] MEDS ORDERED: fentaNYL 100 MCG/2 ML INJ ONE ×2 (09:07→15:15)
[2017-02-05] MEDS ORDERED: PHENYLEPHRINE HCL 100 MCG/ML SYR ONE (09:34)
[2017-02-05] MEDS ORDERED: ROCURONIUM 50 MG/5 ML VIAL ONE ×4 (09:34→11:18)
[2017-02-05] MEDS ORDERED: epHEDrine SULFATE 10 MG/ML SYR ONE (09:34)
--- NOTE | 2017-02-05 10:02 | PDANEPAE ---
ANE Past Medical History - Cardiovascular History Hx Hypertension: No Hx Arrhythmias: Yes Hx Chest Pain: No Hx Coronary Artery / Peripheral Vascular Disease: No Hx CHF / Valvular Disease: No Hx Palpitations: No Cardiovascular History Comment: MITRAL REGURGITATION. MITRAL VALVE PROLAPSE. TRICUPSID VALVE PROLAPSE. NO SOB, SOME FATIGUE - Pulmonary History Hx COPD: No Hx Asthma/Reactive Airway Disease: No Hx Recent Upper Respiratory Infection: No Hx Oxygen in Use at Home: Yes Hx Sleep Apnea: Yes - Neurologic History Hx Cerebrovascular Accident: No Hx Seizures: No Hx Dementia: No Neurologic History Comment: DDD. SCOLIOSIS - Endocrine History Hx Diabetes: No - Renal History Hx Renal Disorders: No - Liver History Hx Hepatic Disorders: No - Neurological & Psychiatric Hx Hx Neurological and Psychiatric Disorders: No - Cancer History Hx Cancer: No - Congenital Disorder History Hx Congenital Disorders: No - GI History Hx Gastrointestinal Disorders: Yes Gastrointestinal History Comment: CONSTIPATION FROM PAIN MEDICATIONS - Other Health History Other Health History: NONE - Chronic Pain History Chronic Pain: Yes (UPPER THORACIC AREA AND RIGHT SIDE OF BACK OF HEAD) - Surgical History Prior Surgeries: PAIN INJECTION WITH DR BRITTON 03/14/15. 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 THORACOTOMY 1993 D/T STREP PNA AND EMPYEMA. 1999 LEFT AND RIGHT SHOULDER SURGERIES ANE Review of Systems Review of Systems: ANE Patient History - Allergies Allergies/Adverse Reactions: ceftriaxone sodium [From Rocephin] Allergy (Severe, Verified 01/03/17 15:28) Other-Enter Comments cyclobenzaprine HCl [From Flexeril] Allergy (Verified 01/03/17 15:28) Itching sulfamethoxazole [From Bactrim] Allergy (Verified 01/03/17 15:28) trimethoprim [From Bactrim] Allergy (Verified 01/03/17 15:28) - Home Medications Home Medications: Melatonin [Melatonin 3 MG (*)] 3 mg PO HS 04/15/15 [Last Taken 02/04/17] morphINE SR [Ms Contin/Oramorph 15 mg (*)] 15 mg PO BID 06/12/15 [Last Taken 01/13] Levothyroxine [Synthroid 100 mcg (*)] 100 mcg PO DAILY06 03/28/16 [Last Taken ] oxyCODONE IR [Oxycodone Ir (*)] 5 - 10 mg PO Q4 PRN 03/28/16 [Last Taken ] Apixaban [Eliquis] 5 mg PO BID 01/03/17 [Last Taken 02/04/17] Escitalopram Oxalate [Lexapro 10 MG] 10 mg PO HS 01/03/17 [Last Taken 02/04/17] Herbals/Supplements -Info Only 1 ea PO DAILY 01/03/17 [Last Taken 01/03/17 08:00 ] Irbesartan [Avapro 75 mg (*)] 75 mg PO DAILY 01/03/17 [Last Taken 02/04/17] Multivitamins [Multivitamin (*)] 1 each PO DAILY 01/03/17 [Last Taken 02/04/17] Propylene Glycol/Peg 400/Pf [Systane 0.3-0.4% Eye Drops] 1 each OP PRN PRN 01/03 [Last Taken Unknown] Ibuprofen [Motrin (*)] 400 mg PO DAILY PRN 01/29/17 [Last Taken Unknown] - Smoking Hx Smoking Status: Never smoked - Family Anes Hx Family Hx Anesthesia Complications: NONE ANE Labs/Vital Signs - Labs Result Diagrams: 02/05/17 07:55 02/05/17 07:55 - Vital Signs Height: 180 cm Weight: 79.4 kg ANE Physical Exam - Airway Neck exam: decreased ROM, short neck Mallampati Score: Class 3 Mouth exam: normal dental/mouth exam - Pulmonary Pulmonary: no respiratory distress, no rales or rhonchi, reduced air movement - Cardiovascular Cardiovascular: irregularly irregular - ASA Status ASA Status: IV ANE Anesthesia Plan Anesthesia Plan: general endotracheal anesthesia
[2017-02-05] MEDS ORDERED: VASOPRESSIN 20 UNIT/ML VIAL ONE (10:09)
[2017-02-05] MEDS ORDERED: PHENYLEPHRINE 10 MG/ML SDV ONE (11:18)
[2017-02-05] MEDS ORDERED: SUGAMMADEX SODIUM 200 MG/2 ML VIAL IVP ONE (11:59)
[2017-02-05] MEDS ORDERED: ONDANSETRON 4 MG/2 ML VIAL ONE (11:59)
[2017-02-05] MEDS ORDERED: PROPOFOL 200 MG/20 ML VIAL ONE (12:48)
[2017-02-05] MEDS ORDERED: PROTAMINE SULFATE 50 MG/5 ML VIAL IVP ONE (13:02)
[2017-02-05] MEDS ORDERED: IBUPROFEN 200 MG TAB PO PRN (13:19)
[2017-02-05] MEDS ORDERED: NON-FORMULARY NEW DRUG (Propylene Glycol/Peg 400/Pf [Systane 0.3-0.4% Eye Drops] 1 EACH) OP PRN (13:19)
[2017-02-05] MEDS: oxyCODONE IR 5 MG TAB PO PRN ×2 (13:30→18:44)
[2017-02-05] MEDS ORDERED: morphINE SR 30 MG TAB PO ONE (14:15)
[2017-02-05] MEDS ORDERED: ONDANSETRON 4 MG/2 ML VIAL IVP PRN (15:03)
[2017-02-05] MEDS ORDERED: fentaNYL 100 MCG/2 ML INJ IVP ONE (15:15)
[2017-02-05 16:07] LABS: ANION GAP 7 mEq/L (8-16); CALCIUM 8.9 mg/dL (8.5-10.4); CARBON DIOXIDE 20 mEq/l (22-31); CHLORIDE 109 mEq/L (97-110); GLOMERULAR FILTRATION RATE > 60; GLUCOSE 104 mg/dL (70-100); MAGNESIUM 1.6 mg/dL (1.6-2.3); POTASSIUM 4.4 mEq/L (3.5-5.2); SODIUM 136 mEq/L (134-144)
[2017-02-05] MEDS: BACLOFEN 10 MG TAB PO SCH ×2 (16:08→20:42)
--- NOTE | 2017-02-05 16:16 | CPEKG ---
Heart Rate: 72 RR Interval: 833 P-R Interval: 204 QRSD Interval: 92 QT Interval: 392 QTC Interval: 430 QRS [place]: -9 T Wave [place]: 72 EKG Severity - ABNORMAL ECG - EKG Impression: ATRIAL-PACED RHYTHM Electronically Signed By: Jorje Darden 05-Feb-2017 20:12:35
[2017-02-05] MEDS ORDERED: MELATONIN 3 MG TAB PO SCH (21:00)
[2017-02-05] MEDS ORDERED: ESCITALOPRAM OXALATE 10 MG TAB PO SCH (21:00)
[2017-02-05] MEDS ORDERED: AMITRIPTYLINE HCL 25 MG TAB PO SCH (21:00)
--- NOTE | 2017-02-05 21:06 | EPPROC ---
Electrophysiology Procedure Note: ELECTROPHYSIOLOGIC STUDY AND CATHETER MEDIATED ABLATION FOR MACRO-REENTRANT RIGHT ATRIAL TACHYCARDIA INDICATION: MV and TV repair Pacemaker Prior AFL ablation post surgery at our institution 2 episodes of atrial tachycardia (different morphology than AFL) 1 year post AFL ablation requiring cardioversion PROCEDURES PERFORMED: 15495-61 EP evaluation with RA/RV/LA pace/record, with arrhythmia induction 58822-91 EP evaluation with RA/RV pace record, insert/reposition catheter, with arrhythmia induction 07564 SVT ablation Second arrhythmia 48343 3D mapping Fluoroscopy Catheters & Anesthesia: The patient arrived in the Electrophysiology Laboratory in the fasting state. The right clavicular region, right groin, and left groin area were prepped and draped in the usual sterile manner. Anesthesiologist Dr. Suh administered general anesthesia. Appropriate non-invasive blood pressure, pulse oximetry and end-tidal CO2 monitoring was established. All catheters were placed percutaneously using the modified Seldinger technique , and advanced into position under fluoroscopic guidance. One #7 Sinhala deflectable octapolar electrode catheter was advanced to the His-bundle position via the left femoral vein . CS was difficult to access. One # 7 Sinhala Halo catheter was inserted through the right femoral vein and was placed at the tricuspid annulus. Heparin was administered to keep ACT > 250 seconds. Programmed stimulation was performed from the right atrium, coronary sinus ( left atrium) and right ventricle. On arrival to the Electrophysiology Laboratory the patient was in sinus rhythm. Differential pacing confirmed bidirectional conduction block across the CT isthmus. AT#1 CL 360 ms was induced easily at baseline. Entrainment mapping confirmed that this was not atrial flutter, entrainment from mid posterior RA showed PPI- TCL 35 ms. dependent atrial flutter. A #8 Sinhala deflectable quadrapolar electrode catheter (2mm-5mm-2mm spacing) with 3.5 mm irrigated tip electrode and location and force sensor for the Veracode mapping system was inserted in the right atrium. Mapping showed extensive scar in the posterior right atrium (voltage <0.05 V). Macroreentry near the superior aspect of the posterior scar was noted. First RF application to this area slowly increased TCL and terminated AT. Further RF applications were delivered to this area. AT#1 could not be reinduced post ablation at baseline. During infusion of isoproterenol 1 mcg/m, AT#2 CL 380 ms was induced. This was a reentry circuit in the posteroseptal right atrium, superior to the coronary sinus ostium. Bump block in this area terminated the tachycardia, RF applications were delivered to this site. The catheters were removed. Pacemaker was reprogrammed to lower rate of 70 bpm. Lead parameters were unchanged post ablation. The patient was transferred to the cardiovascular holding area in stable condition. Vascular access sheaths were removed in the holding area. There were no apparent complications. CONCLUSIONS: 1. Persistent bidirectional conduction block across cavotricuspid isthmus from prior ablation. 2. Two separate macroreentrant right atrial tachycardias, successful ablation, see above. 3. Moderate to severe MR, sp MV repair see preablation STUART report d.w. Dr. Cerda and reviewed with Dr. Tyler. Results also d.w. patients category director Dr. Faith 4. No apparent complications. Patient Problems: Problems Problem Status Onset Severe mitral regurgitation Acute Tricuspid valve regurgitation, secondary Acute Chronic back pain Chronic Chronic narcotic dependence Chronic Hypothyroidism Chronic Status post mitral valve repair Acute Status post tricuspid valve repair Acute Complete heart block, post-surgical Acute Status post placement of cardiac pacemaker Acute Tachyarrhythmia Acute Expressive aphasia Acute Atrial fibrillation Acute
[2017-02-05] MEDS: morphINE SR 30 MG TAB PO SCH (22:13)
[2017-02-06 04:25] LABS: % IMMATURE GRANULYOCYTES 0.5 % (0.0-1.1); ABSOLUTE IMMATURE GRANULOCYTES 0.07 10^3/uL (0.00-0.10); ADD DIFF? NO; ADD MORPH? NO; ADD SCAN? NO; ATYPICAL LYMPHOCYTE FLAG 0 (0-99); FRAGMENT RBC FLAG 10 (0-99); HEMATOCRIT 38.3 % (40.0-51.0); HEMOGLOBIN 13.3 g/dL (13.7-17.5); LEFT SHIFT FLG 0 (0-99); LIPEMIA HEMOLYSIS FLAG 90 (0-99); MEAN CELL HEMOGLOBIN 33.1 pg (27.9-34.1); MEAN CELL HEMOGLOBIN CONCENTR. 34.7 g/dL (32.4-36.7); MEAN CELL VOLUME 95.3 fL (81.5-99.8); PLATELET CLUMPS FLAG 0 (0-99); PLATELET COUNT 152 10^3/uL (150-400); RED BLOOD CELL COUNT 4.02 10^6/uL (4.40-6.38); RED CELL DISTRIBUTION WIDTH 13.4 % (11.5-15.2)
[2017-02-06 04:31] LABS: INR 1.11 (0.83-1.16); PROTIME(PATIENT) 14.2 SEC (12.0-15.0)
[2017-02-06 04:47] LABS: ANION GAP 7 mEq/L (8-16); CALCIUM 8.6 mg/dL (8.5-10.4); CARBON DIOXIDE 20 mEq/l (22-31); CHLORIDE 108 mEq/L (97-110); CREATININE 0.9 mg/dL (0.7-1.3); GLOMERULAR FILTRATION RATE > 60; GLUCOSE 112 mg/dL (70-100); POTASSIUM 4.6 mEq/L (3.5-5.2); SODIUM 135 mEq/L (134-144)
[2017-02-06 04:56] LABS: TROPONIN I 0.729 ng/mL (0.000-0.034)
[2017-02-06 05:34] LABS: CREATINE KINASE-MB FRACTION 4.15 ng/mL (0.00-3.19)
[2017-02-06] MEDS ORDERED: LEVOTHYROXINE 100 MCG TAB PO SCH (06:00)
[2017-02-06 06:07] LABS: CK-MB INTERPRETATION POSITIVE (NEGATIVE)
--- NOTE | 2017-02-06 08:42 | CPEKG ---
Heart Rate: 77 RR Interval: 779 P-R Interval: 164 QRSD Interval: 96 QT Interval: 376 QTC Interval: 426 QRS [place]: -10 T Wave [place]: 57 EKG Severity - ABNORMAL ECG - EKG Impression: ATRIAL-PACED RHYTHM Electronically Signed By: Jorje Darden 06-Feb-2017 10:50:31
[2017-02-06] MEDS ORDERED: IRBESARTAN 75 MG TAB PO SCH (09:00)
[2017-02-06] MEDS ORDERED: MULTIVITAMINS 1 EACH TAB PO SCH (09:00)
[2017-02-06] MEDS: morphINE SR 30 MG TAB PO SCH (09:03)
[2017-02-06] MEDS: BACLOFEN 10 MG TAB PO SCH (09:03)
[2017-02-06 09:04] VITALS: BP 107/72
[2017-02-06 09:09] VITALS: PULSE 70; RESP 16; TEMP 98; O2SAT 93
--- NOTE | 2017-02-06 10:37 | ECHO ---
[email or web address] [address] [address] Main: [phone] Fax: [email or web address] Echocardiogram Name: KESHAWN WALDRON MR#: [id number] Study Date: 02/06/2017 Study Time: 07:53 AM Date of : 1945 Age: 71 year(s) Height: 180.3 cm (71 in.) Weight: 79.38 kg (175 lb.) BSA: 1.99 m2 Gender: Male Examination: Echo Indication: F/U post EP study Image Quality: Contrast: Requested by: Jorje Darden BP: 102 mmHg/52 mmHg Heart Rate: Rhythm: Indication: F/U post EP study Procedure Staff Planimeter Operator: Deidra Doss Physician: Artie Chaudhry Requesting Provider: Measurements: Chambers Valvular Assessment AV/MV Valvular Assessment TV/PV Normal Normal Normal Name Value Range Name Value Range Name Value Range Ao Jayne (MM): 3.5 cm (2.2 cm-3.7 AV meanP mmHg ( - ) TV Vmax: 1.93 m/s (0.3 m/s-0.7 cm) AR (PHT): 437 ms ( - ) m/s) LVDd (2D): 5.0 cm (4.2 cm-5.9 MV E Vmax: 1.65 m/s ( - ) TV Vmean: 1.28 m/s ( - ) cm) MV A Vmax: 2.19 m/s ( - ) TV PGmax: 15 mmHg ( - ) LVEF (MOD4): 71 % (>=55 %) MV E/A: 0.75 ( - ) TV PGmean: 8 mmHg ( - ) EF Range: 70-75 % MV meanP mmHg ( - ) TV VTI: 43.20 cm ( - ) MV PHT: 0.127 s ( - ) MVA (PHT): 1.7 s ( - ) Continued Measurements: Chambers Valvular Assessment AV/MV Name Value Name Value LADs: 4.7 cm MV DecTime: 465 m/s LADs Lon.1 cm MV VTI: 53.60 cm LA Area: 26.4 cm2 AR Vmax: 4.24 cm/s Findings: Left Ventricle: Normal size left ventricle. Global hypercontractility of the left ventricle. The ejection fraction is estimated to be 70-75 %. No regional wall motion abnormality. Right Ventricle: Normal size right ventricle. There is a ICD/Pacer wire noted in the right ventricle. Left Atrium: Patient: KESHAWN WALDRON Study Date: 02/06/2017 Page 1 of 2 07:53 AM The left atrium is moderately dilated. Right Atrium: The right atrium is normal in size. Mitral Valve: Mitral valve repair with annuloplasty ring. Moderate mitral stenosis is present with a mean gradient between 8-10). Mild MV prosthesis regurgitation. Aortic Valve: The aortic valve is normal in appearance and function. Mild aortic valve regurgitation is present. Tricuspid Valve: There is a tricuspid valve ring. TV mean gradient was 8mmHG (poor angle). (No Signature Object) Patient: KESHAWN WALDRON Study Date: 02/06/2017 Page 2 of 2 07:53 AM D:_[id number]
[2017-02-06] MEDS ORDERED: APIXABAN 5 MG TAB PO SCH (11:00)
--- NOTE | 2017-02-06 12:59 | ASDISCHSUM ---
Discharge Information Plan Status:Home with No Needs Medically Cleared to Leave:02/06/2017 Discharge Date:02/06/2017 12:02 PM CM D/C Disposition:Home, Routine, Self-Care ADT D/C Disposition:Home, Routine, Self-Care Projected Discharge Date:02/06/2017 12:02 PM Transportation at D/C:Family Discharge Delay Reason: Follow-Up Date:02/06/2017 12:02 PM Discharge Slot: Final Diagnosis: Placement Information Patient Contact Information Contact Name:LIONEL Relationship: Address:[address] City:[place] Alternate Phone: [facility]/Zip Code:[place] [address] Email: Financial Information Financial Class: Primary Plan Desc:MEDICARE OUTPATIENT Primary Plan Number:[id number] Secondary Plan Desc:[employer]/MDR SUPPLEMENT Secondary Plan Number:[id number] Assessment Information Intervention Information Intervention Type:*GRAY-Signed Date of Service:02/06/2017 09:32 AM Patient Type:Observation Staff Member:Pat Vilchis Hours: Discipline: Severity: Comment:
--- NOTE | 2017-02-06 22:13 | ECHO ---
[email or web address] [address] [address] Main: [phone] Fax: Transesophageal Echocardiography Name: KESHAWN WALDRON MR#: [id number] Study Date: 02/05/2017 Study Time: 09:03 AM Date of : 1945 Age: 71 year(s) Height: ( ) Weight: ( ) BSA: Gender: Male Examination: STUART Indication: Eval for thrombus Pre Ablation Image Quality: Contrast: Requested by: Jorje Darden Heart Rate: Rhythm: BP: / Procedure Staff Linux Consultant: Reading Physician: Jorje Darden Requesting Provider: STUART Exam Details Conclusions: The ejection fraction is estimated to be 50-55 %. The SIDNEY has been partially ligated. There is communication seen via color flow. . No thrombus in left appendage. An annuloplasty ring is noted in the mitral valve position. Moderate to severe MV prosthesis regurgitation. Mild to moderate aortic valve regurgitation. Patient has reported progressive dyspnea and fatigue over last 6 months[address] Sched[address] to see Dr[address] 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 Faith who agrees. Measurements: Chambers Valvular Assessment AV/MV Valvular Assessment TV/PV Normal Normal Normal Name Value Range Name Value Range Name Value Range EF Range: 50-55 % Additional Measurements: Findings: Left Ventricle: Mildly reduced systolic LV function. The ejection fraction is estimated to be 50-55 %. The SIDNEY has been partially ligated. There is communication seen via color flow. . Left Atrial Appendage: Patient: KESHAWN WALDRON Study Date: 02/05/2017 Page 1 of 2 09:03 AM No thrombus in left appendage. Mitral Valve: An annuloplasty ring is noted in the mitral valve position. Moderate to severe MV prosthesis regurgitation. Aortic Valve: The aortic valve is tri-leaflet. Mild to moderate aortic valve regurgitation. l1n (No Signature Object) Patient: KESHAWN WALDRON Study Date: 02/05/2017 Page 2 of 2 09:03 AM [id number]
--- NOTE | 2017-02-07 05:05 | GDS ---
[f rep st] DISCHARGE SUMMARY DISCHARGE DIAGNOSES: 1. Supraventricular tachycardia, status post atrial tachycardia ablation. 2. Valve disease with prior mitral valve and tricuspid valve repair, dual- chamber pacemaker. 3. Prior SIDNEY ligation with thrombus. 4. Prior atrial flutter ablation 5. Dual chamber pacemaker BRIEF HISTORY: This is a 71-year-old man with a prior history of mitral and tricuspid valve repair and left atrial appendage closure March 2015. He had a subsequent dual-chamber pacemaker implanted for bradycardia. He had atrial flutter with RVR. His left atrial appendage was not completely ligated, and he had a thrombus in the left atrium. Despite that, he underwent cardioversion and atrial flutter ablation due to decreasing ejection fraction last year. Since then, he has had 2 episodes of atrial tachycardia, one requiring cardioversion. He has palpitations and lightheadedness with the arrhythmias. HOSPITAL COURSE: Dr. Darden performed ablation of 2 separate macro reentry right atrial tachycardias. There was extensive scar in the posterior right atrium. The first atrial tachycardia was near the superior aspect of the posterior scar. The second atrial tachycardia was reentry circuit in the septal right atrium. Postablation, there were no inducible arrhythmias. Also, there was a persistent bidirectional conduction block across the cavotricuspid isthmus. Patient did well overnight. He has not had any chest pain, pressure, or tightness. He denies any bleeding or pain at his groin sites. TESTING DONE: Echocardiogram: Ejection fraction 70% to 75%. Mitral valve repair with annuloplasty ring with moderate stenosis. No pericardial effusion. EKG demonstrates atrial pacing and ventricular sensing. Consults: Dr Rebecca Cerda for mitral valve stenosis s/p repair. LABORATORY WORK: WBC is 13.2, hemoglobin 13.3, hematocrit 38.3, platelets 152. Sodium 135, potassium 4.6, chloride 108, bicarb 20, BUN 20, creatinine is 0.9 , glucose 112. CK 90. CK-MB fraction 4.15. CK-MB percent 4.6. Troponin is 0.729. PHYSICAL EXAMINATION: VITAL SIGNS: Blood pressure is 102/52, pulse is 74, respirations 17, afebrile at 36.6, O2 saturation 98%. GENERAL: He is alert and oriented, sitting up in the chair, in no acute distress. CARDIAC: Regular rate, rhythm. A 1/6 systolic murmur at the left sternal border. LUNGS: Clear to auscultation. ABDOMEN: Soft and nontender. SKIN: Groin sites are without bleeding. No ecchymosis or hematoma. EXTREMITIES: Legs are warm. No discoloration. No lower extremity edema. Pulses are +2 bilaterally. DISCHARGE INSTRUCTIONS: Patient was given written and verbal postablation activity restrictions. DISCHARGE MEDICATIONS: Please see discharge medication reconciliation. Of note , Eliquis was restarted. FOLLOWUP: He has a followup with Dr. Darden February 27 at 3:45 and a followup with Dr. Cerda on February 12 at 11 o'clock. /[id number]/MODL MTDD
== END 2017-02-06 12:02 | disposition home or self-care (01) ==
LOC: FCATH 07:16 → F2W 15:03
PROVIDERS: ADMIT Internal Medicine Cardiovascular Disease; ATTEND Internal Medicine Cardiovascular Disease
PROC: 5A1213Z Performance of Cardiac Pacing, Intermittent (ICD-10-PCS; principal; 2017-02-05)
PROC: 02583ZZ Destruction of Conduction Mechanism, Percutaneous Approach (ICD-10-PCS; principal; 2017-02-05)
PROC: 4A023FZ Measurement of Cardiac Rhythm, Percutaneous Approach (ICD-10-PCS; principal; 2017-02-05)
PROC: B245ZZ4 Ultrasonography of Left Heart, Transesophageal (ICD-10-PCS; principal; 2017-02-05)
PROC: 02K83ZZ Map Conduction Mechanism, Percutaneous Approach (ICD-10-PCS; principal; 2017-02-05)
DX: I47.1 Supraventricular tachycardia (principal); I48.92 Unspecified atrial flutter; I34.0 Nonrheumatic mitral (valve) insufficiency; I42.9 Cardiomyopathy, unspecified; F32.9 Major depressive disorder, single episode, unspecified; E03.9 Hypothyroidism, unspecified; I10 Essential (primary) hypertension; Z95.4 Presence of other heart-valve replacement; Z95.0 Presence of cardiac pacemaker; Z79.01 Long term (current) use of anticoagulants
CPT/HCPCS: 93005; 93306; 93312; 93613; 93621; 93623; 93653; 93655; C1730; C1731; C1732; J1644; J2370; J2405; J2704; J2720; J3010

== ENCOUNTER 2017-03-26 11:16 | Inpatient (IN) | payer OTHER, MEDICARE ==
[2017-03-26] MEDS ORDERED: FAMOTIDINE 20 MG TAB PO ONE (11:21)
[2017-03-26] MEDS ORDERED: DIAZEPAM 5 MG TAB PO ONE (11:21)
[2017-03-26] MEDS ORDERED: NS 1,000 ML IV ONE (11:21)
[2017-03-26] MEDS ORDERED: ASPIRIN EC 325 MG TAB PO ONE ×2 (11:21→12:33)
[2017-03-26] MEDS ORDERED: diphenhydrAMINE 25 MG CAP PO ONE ×2 (11:21→12:32)
[2017-03-26] MEDS ORDERED: LIDOCAINE 1% 300 MG/30 ML SDV ONE (11:51)
[2017-03-26] MEDS ORDERED: MIDAZOLAM 2 MG/2 ML VIAL ONE ×2 (11:51→13:20)
[2017-03-26] MEDS ORDERED: IOPAMIDOL (ISOVUE-370) 150 ML BTL IV ONE (11:51)
[2017-03-26] MEDS ORDERED: fentaNYL 100 MCG/2 ML INJ ONE (11:51)
--- NOTE | 2017-03-26 11:55 | PDPROPOC ---
Sedation Plan of Care Sedation Plan of Care: vital signs stable, mental status noted, patient educated of risks, benefits, alternatives, patient can tolerate sedation ASA Classification: ASA 2 Planned drugs: fentanyl, midazolam Mallampati Score: Class 2 Mallampati Reference Image: Patient passed 3-3-2 rule?: Yes
--- NOTE | 2017-03-26 12:04 | CPEKG ---
Heart Rate: 74 RR Interval: 811 P-R Interval: 169 QRSD Interval: 94 QT Interval: 400 QTC Interval: 444 QRS [place]: -5 T Wave [place]: 66 EKG Severity - ABNORMAL ECG - EKG Impression: ATRIAL-PACED RHYTHM Electronically Signed By: Aiden Hanson 26-Mar-2017 15:38:32
[2017-03-26 12:07] LABS: % IMMATURE GRANULYOCYTES 0.6 % (0.0-1.1); ABSOLUTE IMMATURE GRANULOCYTES 0.04 10^3/uL (0.00-0.10); ADD DIFF? NO; ADD MORPH? NO; ADD SCAN? NO; ATYPICAL LYMPHOCYTE FLAG 0 (0-99); FRAGMENT RBC FLAG 0 (0-99); HEMATOCRIT 42.3 % (40.0-51.0); HEMOGLOBIN 14.8 g/dL (13.7-17.5); LEFT SHIFT FLG 0 (0-99); LIPEMIA HEMOLYSIS FLAG 90 (0-99); MEAN CELL HEMOGLOBIN 33.2 pg (27.9-34.1); MEAN CELL VOLUME 94.8 fL (81.5-99.8); MEAN PLATELET VOLUME 9.2 fL (8.7-11.7); PLATELET CLUMPS FLAG 10 (0-99); PLATELET COUNT 178 10^3/uL (150-400); RED BLOOD CELL COUNT 4.46 10^6/uL (4.40-6.38)
[2017-03-26 12:21] LABS: INR 0.98 (0.83-1.16); PROTIME(PATIENT) 12.9 SEC (12.0-15.0)
[2017-03-26] MEDS ORDERED: FAMOTIDINE 20 MG TAB ONE (12:32)
[2017-03-26] MEDS ORDERED: DIAZEPAM 5 MG TAB ONE (12:33)
[2017-03-26 12:38] LABS: CALCIUM 9.2 mg/dL (8.5-10.4); CARBON DIOXIDE 25 mEq/l (22-31); CHLORIDE 104 mEq/L (97-110); CHOLESTEROL 188 mg/dL (140-220); CHOLESTEROL/HDL RATIO 3.19 RATIO (1.00-4.97); CREATININE 1.1 mg/dL (0.7-1.3); GLOMERULAR FILTRATION RATE > 60; GLUCOSE 69 mg/dL (70-100); HIGH DENSITY LIPOPROTEIN 59 mg/dL (40-65); LOW DENSITY LIPOPROTEIN 106 mg/dL (80-100); MAGNESIUM 2.2 mg/dL (1.6-2.3); NON-HIGH DENSITY LIPOPROTEIN 129 mg/dL (90-129); SODIUM 137 mEq/L (134-144); TRIGLYCERIDE 115 mg/dL (40-150); VERY LOW DENSITY LIPOPROTEINS 23 mg/dL (8-25)
[2017-03-26 12:50] LABS: ANION GAP 8 mEq/L (8-16); POTASSIUM 4.9 mEq/L (3.5-5.2)
--- NOTE | 2017-03-26 14:15 | PDDXCAT ---
Diagnostic Cath Note - . Date: 03/26/17 Urology Physician: Nayeli Indication: other (pre open heart surgery) - Procedure Access: right groin Procedure: left heart catheterization, coronary angiography, left ventriculogram , right heart catheterization - Materials Left Heart Cath size: 6F Left Heart Cath materials: standard multipack (JL4, JR4, pigtail) Right Heart Cath size: 7F Right Heart Cath materials: PWP catheter - Findings-Left Heart Catheterization LM: normal LAD: normal with 2 normal principal diagonals LCX: normal. One normal OM RCA: dominant. No sig disease EDP: 6 LVEF: 60 Wall motion: normal - Findings-Right Heart Catheterization RA: mean 5 RV: 35/-2. mean 7 AO: 101/59 Complications: none Estimated blood loss: <50ml Closure method: Angioseal Assessment: Normal coronary arteries. Normal right and left heart filling pressures. s/p MV and TV repair. Recurrent severe MR based on echo Plan: CT surgery for MVR and possible AVR Patient Problems: Problems Problem Status Onset Severe mitral regurgitation Acute Tricuspid valve regurgitation, secondary Acute Chronic back pain Chronic Chronic narcotic dependence Chronic Hypothyroidism Chronic Status post mitral valve repair Acute Status post tricuspid valve repair Acute Complete heart block, post-surgical Acute Status post placement of cardiac pacemaker Acute Tachyarrhythmia Acute Expressive aphasia Acute Atrial fibrillation Acute
[2017-03-26] MEDS ORDERED: HYDROCODONE/APAP 5/325 TAB PO PRN (14:17)
[2017-03-26] MEDS ORDERED: ATROPINE SULFATE 1 MG/10 ML SYR IVP PRN (14:17)
[2017-03-26] MEDS ORDERED: OXYCODONE/APAP 5/325 TAB PO PRN (14:17)
[2017-03-26] MEDS ORDERED: ONDANSETRON 4 MG/2 ML VIAL IVP PRN (14:17)
[2017-03-26] MEDS ORDERED: NITROGLYCERIN 0.4 MG BTL SL PRN (14:17)
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
[2017-03-26] MEDS ORDERED: CHLORHEXIDINE GLUC HIBICLENS 118 ML BTL TP SCH (21:00)
[2017-03-26] MEDS: oxyCODONE IR 5 MG TAB PO SCH (21:35)
[2017-03-26] MEDS: ESCITALOPRAM OXALATE 10 MG TAB PO SCH (21:35)
[2017-03-26] MEDS: CARBOXYMETHYLCELLULOSE 0.5% 0.4 ML DROPERETTE EACHEYE SCH (21:35)
[2017-03-26] MEDS: morphINE SR 15 MG TAB PO SCH (21:35)
[2017-03-26] MEDS: AMITRIPTYLINE HCL 25 MG TAB PO SCH (22:26)
[2017-03-26] MEDS: MELATONIN 3 MG TAB PO SCH (22:26)
[2017-03-27] MEDS ORDERED: VANCOMYCIN HCL/NORMAL SALINE 250 ML IV ONE (06:00)
[2017-03-27] MEDS ORDERED: CITRATE DEXTROSE SOLN 500 ML BAG MISC ONE (06:00)
[2017-03-27] MEDS ORDERED: NOREPINEPHRINE BITARTRATE 16 MG in NS 250 ML IV ONE (06:00)
[2017-03-27] MEDS ORDERED: MUPIROCIN 2% 22 GM OINT NS ONE ×2 (06:00→09:15)
[2017-03-27] MEDS ORDERED: SODIUM BICARBONATE 20 MEQ, LIDOCAINE 1% 10 ML in NORMOSOL-R 1,000 ML MISC ONE (06:00)
[2017-03-27] MEDS ORDERED: AMINOCAPROIC ACID 5 GM/20 ML VIAL IV ONE (06:00)
[2017-03-27] MEDS ORDERED: niCARdipine/NACL 200 ML IV SCH (06:00)
[2017-03-27] MEDS ORDERED: PHENYLEPHRINE HCL 50 MG in NS 250 ML IV ONE (06:00)
[2017-03-27] MEDS ORDERED: INSULIN REGULAR HUMAN 100 UNIT in NS 100 ML IV ONE (06:00)
[2017-03-27] MEDS ORDERED: MANNITOL 25% 12.5 GM/50 ML VIAL IVP ONE (06:00)
[2017-03-27] MEDS ORDERED: PROTAMINE SULFATE 50 MG/5 ML VIAL IVP ONE (06:33)
[2017-03-27] MEDS ORDERED: ALBUMIN 5% 250 ML BOTTLE IV ONE ×2 (06:33→10:10)
[2017-03-27] MEDS ORDERED: AMINOCAPROIC ACID 5 GM/20 ML VIAL ONE (06:34)
[2017-03-27] MEDS ORDERED: DOPamine/DEXTROSE/250 ML BAG IV ONE (06:34)
[2017-03-27] MEDS ORDERED: AMIODARONE HCL 150 MG/3 ML VIAL ONE (06:34)
[2017-03-27] MEDS ORDERED: MILRINONE/DEXTROSE/100 ML BAG IV ONE (06:34)
[2017-03-27] MEDS ORDERED: niCARdipine/NACL/200 ML BAG IV ONE (06:34)
[2017-03-27] MEDS ORDERED: NA BICARBONATE 50 MEQ/50 ML VIAL ONE (06:34)
[2017-03-27] MEDS ORDERED: CALCIUM CHLORIDE 1 GM/10 ML INJ ONE (06:34)
[2017-03-27] MEDS ORDERED: LIDOCAINE 2% 100 MG/5 ML SYR ONE (06:34)
[2017-03-27] MEDS ORDERED: CITRATE DEXTROSE SOLN 500 ML BAG ONE (06:34)
[2017-03-27] MEDS ORDERED: methylPREDNISolone SOD SUCC 1 GM/8 ML VIAL ONE (06:35)
[2017-03-27] MEDS ORDERED: HEPARIN 10,000 UNIT/10 ML MDV ONE (06:35)
[2017-03-27] MEDS ORDERED: ceFAZolin 1 GM VIAL ONE (06:35)
[2017-03-27] MEDS ORDERED: ADENOSINE 6 MG/2 ML VIAL ONE (06:35)
[2017-03-27] MEDS ORDERED: MAGNESIUM SULFATE 1 GM/2 ML VIAL ONE (06:35)
[2017-03-27] MEDS ORDERED: LIDOCAINE 1% 2 ML INJ ID PRN (07:58)
[2017-03-27] MEDS ORDERED: LR 1,000 ML IV ONE (07:58)
[2017-03-27] MEDS ORDERED: MIDAZOLAM 2 MG/2 ML VIAL IVP ONE (08:25)
--- NOTE | 2017-03-27 08:25 | PDANEPAE ---
ANE History of Present Illness here for redo MVR poss AVR ANE Past Medical History - Cardiovascular History Hx Hypertension: No Hx Arrhythmias: Yes Hx Chest Pain: No Hx Coronary Artery / Peripheral Vascular Disease: No Hx CHF / Valvular Disease: No Hx Palpitations: No Cardiovascular History Comment: L BBB, MITRAL REGURGITATION and aortic valve regurg. NO SOB except w/strenuous activity, FATIGUE - Pulmonary History Hx COPD: No Hx Asthma/Reactive Airway Disease: No Hx Recent Upper Respiratory Infection: No Hx Oxygen in Use at Home: No Hx Sleep Apnea: Yes Sleep Apnea Screening Result - Last Documented: Positive Pulmonary History Comment: NIC w/ CPAP -tolerates CPAP. Does NOT need CPAP at lower altitude. - Neurologic History Hx Cerebrovascular Accident: No Hx Seizures: No Hx Dementia: No Neurologic History Comment: DDD. SCOLIOSIS. Pain between shoulder blades, spine. Neck/occiput has occ pain. - Endocrine History Hx Diabetes: No Endocrine History Comment: hypothyroid - Renal History Hx Renal Disorders: Yes Renal History Comment: BPH - Liver History Hx Hepatic Disorders: No - Neurological & Psychiatric Hx Hx Neurological and Psychiatric Disorders: Yes Neurological / Psychiatric History Comment: depression. Optical migraines. Had a complex (without a H/A) migraine. - Cancer History Hx Cancer: No - Congenital Disorder History Hx Congenital Disorders: No - GI History Hx Gastrointestinal Disorders: Yes Gastrointestinal History Comment: CONSTIPATION FROM PAIN MEDICATIONS - Other Health History Other Health History: NONE - Chronic Pain History Chronic Pain: Yes (UPPER THORACIC AREA AND RIGHT SIDE OF BACK OF HEAD) - Surgical History Prior Surgeries: pacemaker insertion 04-12. mitral valve repair 04-12PAIN INJECTION WITH DR BRITTON 03/14/15. PUBLICATIONS EDITOR 02/03/15. THORACOTOMY 1993 D/T STREP PNA AND EMPYEMA. 1999 LEFT AND RIGHT SHOULDER SURGERIES ANE Review of Systems Review of systems is: negative Review of Systems: - Exercise capacity Exercise capacity: >=4 METS METS (RN): 4 METS - Pacemaker Pacemaker Lawn [employer] Technician: [employer] Pacemaker Model: nima 8 antonia abad [id number] Pacemaker Mode: DDD Date Pacemaker Last Checked: 07-31-16 ANE Patient History - Allergies Allergies/Adverse Reactions: ceftriaxone sodium [From Rocephin] Allergy (Severe, Verified 03/11/17 15:15) Other-Enter Comments cyclobenzaprine [From Flexeril] Allergy (Verified 03/11/17 15:59) Itching sulfamethoxazole [From Bactrim] Allergy (Verified 03/11/17 15:15) trimethoprim [From Bactrim] Allergy (Verified 03/11/17 15:15) Other-Enter Comments - Home Medications Home medications: home medication list seen and reviewed Home Medications: Melatonin [Melatonin 3 MG (*)] 3 mg PO HS 04/15/15 [Last Taken 03/25/17] morphINE SR [Ms Contin/Oramorph 15 mg (*)] 15 mg PO BID 06/12/15 [Last Taken 08:00] Levothyroxine [Synthroid 100 mcg (*)] 100 mcg PO DAILY06 03/28/16 [Last Taken 06:00] Apixaban [Eliquis] 5 mg PO BID 01/03/17 [Last Taken 03/21/17] Herbals/Supplements -Info Only 1 ea PO DAILY 01/03/17 [Last Taken 03/21/17] Irbesartan [Avapro 75 mg (*)] 75 mg PO DAILY 01/03/17 [Last Taken 03/26/17] Multivitamins [Multivitamin (*)] 1 each PO DAILY 01/03/17 [Last Taken 03/21/17] Ibuprofen [Motrin (*)] 400 mg PO DAILY PRN 01/29/17 [Last Taken Unknown] Escitalopram Oxalate [Lexapro] 20 mg PO HS 03/11/17 [Last Taken 03/25/17] Magnesium Oxide [Magnesium Oxide 400 mg (*)] 400 mg PO DAILY 03/11/17 [Last Taken 03/21/17] Propylene Glycol/Peg 400/Pf [Systane 0.3-0.4% Eye Drops] 1 drop EACHEYE BID [Last Taken 03/26/17 08:00] Pyridoxine HCl [Vitamin B-6 100 mg (*)] 400 mg PO DAILY 03/11/17 [Last Taken ] oxyCODONE IR [Oxycodone Ir (*)] 5 mg PO BID 03/11/17 [Last Taken 03/26/17 08:00] oxyCODONE IR [Oxycodone Ir (*)] 10 mg PO DAILY@1200 03/11/17 [Last Taken ] Enoxaparin Sodium [Enoxaparin Sodium] 80 mg SC Q12H 03/26/17 [Last Taken ] - NPO status NPO Status: no food or drink >8 hours NPO Since - Liquids (Date): 03/27/17 NPO Since - Liquids (Time): 00:01 NPO Since - Solids (Date): 03/27/17 NPO Since - Solids (Time): 00:01 - Smoking Hx Smoking Status: Never smoked - Family Anes Hx Family Hx Anesthesia Complications: NONE ANE Labs/Vital Signs - Labs Result Diagrams: 03/26/17 11:55 03/26/17 11:55 - Vital Signs Blood Pressure: 107/74 Heart Rate: 75 Respiratory Rate: 16 O2 Sat (%): 94 Height: 180 cm Weight: 78.103 kg ANE Physical Exam - Airway Neck exam: FROM Mallampati Score: Class 1 - Pulmonary Pulmonary: no respiratory distress - Cardiovascular Cardiovascular: regular rate and rhythym - ASA Status ASA Status: IV ANE Anesthesia Plan Anesthesia Plan: general endotracheal anesthesia Lines/Monitors: central line, STUART
[2017-03-27] MEDS ORDERED: fentaNYL 250 MCG/5 ML INJ ONE ×3 (08:31→11:40)
[2017-03-27] MEDS ORDERED: PROPOFOL/EMULSION 500 MG/50 ML BOTTLE IV ONE (08:35)
[2017-03-27] MEDS ORDERED: KETAMINE 100 MG/10 ML SYR ONE (08:40)
[2017-03-27] MEDS ORDERED: MAGNESIUM SULF 2 GM/WATER 50 ML BAG IV ONE (10:10)
[2017-03-27] MEDS ORDERED: fentaNYL 100 MCG PATCH TD ONE (10:15)
[2017-03-27] MEDS ORDERED: HYDROmorphONE/DILAUDID 2 MG/ML INJ ONE ×2 (13:32→14:46)
[2017-03-27] MEDS ORDERED: MINERAL OIL 10 ML VIAL ONE (13:42)
[2017-03-27] MEDS: oxyCODONE IR 5 MG TAB PO SCH (14:04)
[2017-03-27] MEDS: CARBOXYMETHYLCELLULOSE 0.5% 0.4 ML DROPERETTE EACHEYE SCH ×2 (14:04→21:11)
[2017-03-27] MEDS: morphINE SR 15 MG TAB PO SCH (14:04)
[2017-03-27] MEDS ORDERED: THROMBIN(HUM PLAS)/FIBRINOG/CA 5 ML VIAL TP ONE (14:25)
[2017-03-27] MEDS ORDERED: DEXMEDETOMIDINE IN 0.9 % NACL 100 ML IV ONE (14:30)
[2017-03-27] MEDS ORDERED: POLYETHYLENE GLYCOL 3350 17 GM PKT PO PRN (15:22)
[2017-03-27] MEDS ORDERED: ONDANSETRON DISINTEGRATING 4 MG TAB PO PRN (15:22)
[2017-03-27] MEDS ORDERED: ACETAMINOPHEN 650 MG SUPP PR PRN (15:22)
[2017-03-27] MEDS ORDERED: METOCLOPRAMIDE 10 MG/2 ML VIAL IVP PRN (15:22)
[2017-03-27] MEDS ORDERED: LACTULOSE 20 GM/30 ML UDCUP PO PRN (15:22)
[2017-03-27] MEDS ORDERED: KETOROLAC 15 MG/1 ML SDV IVP PRN (15:22)
[2017-03-27] MEDS ORDERED: MAGNESIUM SULF 2 GM/WATER 50 ML IV ONE (15:22)
[2017-03-27] MEDS ORDERED: CEPACOL LOZENGE PO PRN (15:22)
[2017-03-27] MEDS ORDERED: ONDANSETRON 4 MG/2 ML VIAL IVP PRN (15:22)
[2017-03-27] MEDS ORDERED: POTASSIUM Cl (KCl) 50 ML IV PRN (15:22)
[2017-03-27] MEDS ORDERED: SODIUM CL NASAL 45 ML BTL EACHNARE PRN (15:22)
[2017-03-27] MEDS ORDERED: MEPERIDINE 25 MG/ML SYR IVP PRN (15:22)
[2017-03-27] MEDS ORDERED: PANTOPRAZOLE SODIUM 40 MG VIAL IVP ONE (15:22)
[2017-03-27] MEDS ORDERED: BISACODYL 10 MG SUPP PR PRN (15:22)
[2017-03-27] MEDS ORDERED: D50W 25 GM/50 ML SYR IVP PRN (15:22)
[2017-03-27] MEDS ORDERED: INSULIN REGULAR HUMAN 100 UNIT in NS 100 ML IV SCH (15:30)
[2017-03-27] MEDS ORDERED: NS 1,000 ML IV SCH (15:30)
[2017-03-27] MEDS: ALBUMIN 5% 250 ML IV PRN ×3 (15:40→19:49)
[2017-03-27] MEDS ORDERED: NALOXONE HCL 0.4 MG/ML INJ ONE (16:01)
[2017-03-27 16:39] LABS: CALCULATED OXYGEN SATURATION 93 % (92-95); O2 CONCENTRATIION 40 % (0-100)
[2017-03-27 16:39] LABS: CALCULATED OXYGEN SATURATION 96 % (92-95); O2 CONCENTRATIION 40 % (0-100)
[2017-03-27] MEDS: KETOROLAC 30 MG/1 ML SDV IVP SCH ×2 (16:51→23:13)
[2017-03-27] MEDS ORDERED: NALOXONE HCL 0.4 MG/ML INJ IVP ONE (17:00)
[2017-03-27 18:26] LABS: CALCULATED OXYGEN SATURATION 99 % (92-95)
[2017-03-27 19:18] LABS: CALCULATED OXYGEN SATURATION 88 % (92-95); O2 CONCENTRATIION 40 % (0-100)
[2017-03-27] MEDS: VANCOMYCIN HCL/NORMAL SALINE 250 ML IV SCH (20:24)
[2017-03-27] MEDS: MUPIROCIN 2% 22 GM OINT NS SCH (20:30)
[2017-03-27] MEDS: fentaNYL 100 MCG/2 ML INJ IVP PRN ×2 (21:10→23:13)
[2017-03-27] MEDS: HYDROCODONE/APAP 5/325 TAB PO PRN (21:27)
[2017-03-27 22:06] LABS: HEMOGLOBIN A1C 5.3 % (4.0-6.0)
[2017-03-28] MEDS: fentaNYL 100 MCG/2 ML INJ IVP PRN ×3 (01:01→09:53)
[2017-03-28] MEDS: HYDROCODONE/APAP 5/325 TAB PO PRN ×3 (01:27→21:34)
[2017-03-28 01:37] LABS: HEMOGLOBIN 10.5 g/dL (13.7-17.5); MEAN CELL HEMOGLOBIN 33.7 pg (27.9-34.1); MEAN CELL VOLUME 96.2 fL (81.5-99.8); RED BLOOD CELL COUNT 3.12 10^6/uL (4.40-6.38); RED CELL DISTRIBUTION WIDTH 13.2 % (11.5-15.2)
--- NOTE | 2017-03-28 02:03 | GOP ---
[f rep st] OPERATIVE REPORT DATE OF OPERATION: 03/26/2017 SURGEON: Claus Cerda DO CONDUIT CLEANER: Jj Enrique PA-C. ANESTHESIOLOGIST: Antonino Mattson MD. PREOPERATIVE DIAGNOSIS: Mitral insufficiency, aortic insufficiency, and paroxysmal atrial fibrillati on. POSTOPERATIVE DIAGNOSIS: Mitral insufficiency, aortic insufficiency, and paroxysmal atrial fibrillat ion. PROCEDURE PERFORMED: 1. Mitral valve replacement with a #25 Magna bioprosthesis. 2. Aortic valve replacement with a #23 Magna bioprosthesis. 3. Negro-Maze IV, both left and right, with cryoablation and radiofrequency with testing. 4. Closure of left atrial appendage from inside the left atrium. FINDINGS: This gentleman had undergone a previous mitral valve repair two years prior and developed persistent progressive mitral insufficiency over the last year prior to coming in for surgery. He wa s also noted to have at least kndw-ce-humeruai aortic insufficiency, which was not present after his initial operation. He also developed supraventricular arrhythmias, predominantly paroxysmal atrial f ibrillation, and some flutters were also noted. He had a permanent pacemaker in place. He was refer red for aortic and mitral valve surgery as well as a Negro-Maze IV ablation procedure for atrial fibril lation. He and his were consented. DESCRIPTION OF PROCEDURE: He was brought to the operating room and intubated. Monitoring lines were placed. He was prepped and draped in sterile classical manner. Transesophageal echo was performed by Antonino Mattson MD, with Anesthesia, and Meghana Tyler MD, from Cardiology came over and did an extens emma analysis of the aortic valve under general anesthesia. It was their consensus that it was likely trending more toward moderate aortic insufficiency with a central jet, and we were more comfortable with replacement rather than leaving it, given that this patient was now experiencing his 2nd operati on at age 71. There were concerns he might have progressive disease and require surgery for that in the future. At the very least, we could subsequently do a TAVR valve inside the aortic valve if that were to fail, so aortic valve, which had been discussed with his and the patient, was planned. We did repeat median sternotomy without incident. We marsupialized the aorta and right side of the heart. He was heparinized and cannulated in the standard fashion with bicaval cannulae and tapes. Osbaldo calderon then encircled the right pulmonary veins and ablated that approximately 11 times with transmurality confirmed with both entrance and exit block compared to pre-ablation where he had no evidence of blo ck on either direction. Because I did not dissect out the left side, we were unable to perform sensi ng and testing on that side. Based on his dominant right coronary artery, the coronary sinus was mar ked beyond the posterior lateral branch of the right where there was no circumflex vessel, which karan elated with approximately the midportion of the posterior anulus of the mitral valve. We then initia bryson cardiopulmonary bypass. We arrested the heart. We opened the left atrium through the right supe rior pulmonary vein, extending the incision all the way over to the remnant of the atrial appendage a nd over to the mitral isthmus, performing a portion of the Maze with scissors. We then completed the isthmus line, both externally and internally overlapping it with coronary sinus ablation with 3 carol stephanie of cryoablation performed twice externally and once internally. This was done after the mitral r ing was removed, by the way. We then performed with cryo, extending it into the left infe rior pulmonary vein. We did the dome lesion with cryo extending it into the left superior pulmonary vein. We then used a flexible cryoprobe and did a 3-minute ablation on the pulmonary antrum with goo d contact noted. We then had already removed the previously placed mitral ring. The leaflets were t hickened and contracted, and it was a rather small valve as recalled from the initial operation. The anterior leaflet was completely removed with subvalvular apparatus to that because the anulus was so small. I was concerned if it would even fit a 25 mm Sizer through the orifice. We were able to get a 25 mm Sizer through the orifice with some tension, and I felt that I would be able to bring the frias tures up onto the left atrial wall a little bit in order to facilitate it. Interrupted 2-[address] edgeted mattress sutures were placed in the remnant anulus and the posterior leaflet as previously de scribed, and the 25 mm valve was seated without difficulty. I then found the remnant of the left atr ial appendage, which appeared to be patent on previous echoes, and closed that with a two-layer 4-0 P rolene suture closure. We then closed the left atrium in standard fashion. An LV sump was placed ac ross the mitral valve. Rewarming was begun. We then opened the aorta in a standard aortotomy. A tr ileaflet valve was excised. Interrupted 2-0 Ti-Cron pledgeted mattress sutures were placed through t he anulus and subsequently through the valve and secured in place without difficulty. The aortotomy was closed in a two-layer fashion. The cross-clamp was then removed with suction on the ascending ao rtic vent and LV sump in Trendelenburg. CO2 had been infused throughout the procedure. We then did an atriotomy from the previous retrograde catheter site extending down to the septum. We performed a free wall lesion with multiple ablations utilizing radiofrequency. We also did superior and inferio r vena caval lines with radiofrequency and did a cryo-line, tucking it beneath the previously placed tricuspid ring anulus and doing it for 3 minutes, connecting it to the vertical atriotomy in order to complete the isthmus lesion set. The right atrium was closed. Spontaneous cardiac activity was not ed to resume. The patient was de-aired through the ascending aorta and LV apex when echo confirmed n o further areas easily weaned from bypass. Both valves had excellent function without regurgitation. Heparin was reversed with protamine. The cannula was removed and oversewn. We checked him for exi t and entrance block, which was confirmed on the right. Again, we could not reach the left side. Th e patient's sternum was closed in standard fashion after closing over three drains where the pericard ium and thymic fat were reapproximated. The patient was returned to intensive care unit in stable co ndition. /[id number]/MODL
[2017-03-28 04:35] LABS: % IMMATURE GRANULYOCYTES 0.6 % (0.0-1.1); ADD DIFF? NO; ADD MORPH? NO; ADD SCAN? NO; ATYPICAL LYMPHOCYTE FLAG 0 (0-99); FRAGMENT RBC FLAG 0 (0-99); HEMATOCRIT 27.8 % (40.0-51.0); HEMOGLOBIN 9.5 g/dL (13.7-17.5); LEFT SHIFT FLG 10 (0-99); LIPEMIA HEMOLYSIS FLAG 90 (0-99); MEAN CELL HEMOGLOBIN CONCENTR. 34.2 g/dL (32.4-36.7); MEAN CELL VOLUME 96.5 fL (81.5-99.8); MEAN PLATELET VOLUME 9.4 fL (8.7-11.7); PLATELET CLUMPS FLAG 30 (0-99); PLATELET COUNT 63 10^3/uL (150-400); RED BLOOD CELL COUNT 2.88 10^6/uL (4.40-6.38); RED CELL DISTRIBUTION WIDTH 13.2 % (11.5-15.2)
[2017-03-28 04:39] LABS: INR 1.24 (0.83-1.16); PROTIME(PATIENT) 15.8 SEC (12.0-15.0)
[2017-03-28 04:48] LABS: ANION GAP 8 mEq/L (8-16); CALCIUM 7.8 mg/dL (8.5-10.4); CARBON DIOXIDE 24 mEq/l (22-31); CHLORIDE 108 mEq/L (97-110); CREATININE 0.9 mg/dL (0.7-1.3); GLOMERULAR FILTRATION RATE > 60; GLUCOSE 102 mg/dL (70-100); POTASSIUM 4.9 mEq/L (3.5-5.2); SODIUM 140 mEq/L (134-144)
[2017-03-28] MEDS: KETOROLAC 30 MG/1 ML SDV IVP SCH ×4 (05:03→23:58)
[2017-03-28] MEDS ORDERED: HEPARIN 5,000 UNIT/0.5 ML SYR SC SCH (06:00)
--- NOTE | 2017-03-28 06:46 | SOAPPROG ---
SOEDUAR Progress Note Assessment/Plan: POD #1: Redo sternotomy, explant mitral annuloplasty ring, MVR with #25 Magna bioprosthesis, AVR with #23 Magna bioprosthesis, Negro-Maze IV Severe MR s/p MVR with bioprosthesis valve - wean dopamine as tolerate. Coumadin as per PAF. Moderate AI s/p AVR - mgmt as per MVR Paroxysmal atrial fib/flutter - s/p CM4. Thromboprophylaxis with Coumadin, INR goal 2-3, duration dependent on rhythm. Diastolic class III CHF, chronic - introduction of HF meds as tolerated. Acute blood loss anemia with coagulopathy - stable without the need for blood product transfusions. Chronic back pain with opioid dependence - pain well-controlled with post-op regimen. Will restart home regimen. Subjective: Pain well-controlled. Denies SOB. Objective: Vital Signs Temp Pulse Resp BP Pulse Ox 36.5 C 70 11 L 100/57 L 96 03/28/17 04:00 03/28/17 06:00 03/28/17 06:00 03/28/17 06:00 03/28/17 06:00 Laboratory Results 03/28/17 04:08 03/28/17 04:08 03/27/17 03/28/17 03/29/17 05:59 05:59 05:59 Intake Total 1000 2454.6 Output Total 2545 Balance 1000 -90.4 PT 15.8 SEC (12.0-15.0) H 03/28/17 04:08 INR 1.24 (0.83-1.16) H 03/28/17 04:08 Physical Exam - Physical Exam General Appearance: WD/WN, alert, no apparent distress EENT: No scleral icterus (R), No scleral icterus (L) Neck: normal inspection Respiratory: No respiratory distress Cardiac/Chest: regular rate, rhythm, other (paced) Abdomen: non-tender, soft, No distended Skin: normal color, warm/dry Extremities: No pedal edema Neuro/Psych: no motor/sensory deficits, alert, normal mood/affect, oriented x 3 ICD10 Worksheet Patient Problems: Problems Problem Status Onset Atrial fibrillation Acute Complete heart block, post-surgical Acute Expressive aphasia Acute Severe mitral regurgitation Acute Status post mitral valve repair Acute Status post placement of cardiac pacemaker Acute Status post tricuspid valve repair Acute Tachyarrhythmia Acute Tricuspid valve regurgitation, secondary Acute Chronic back pain Chronic Chronic narcotic dependence Chronic Hypothyroidism Chronic
[2017-03-28] MEDS: VANCOMYCIN HCL/NORMAL SALINE 250 ML IV SCH ×2 (08:38→22:41)
[2017-03-28] MEDS: PANTOPRAZOLE SODIUM 40 MG TAB PO SCH (08:38)
[2017-03-28] MEDS: CARBOXYMETHYLCELLULOSE 0.5% 0.4 ML DROPERETTE EACHEYE SCH ×2 (08:38→21:31)
[2017-03-28] MEDS: SENNOSIDES/DOCUSATE SODIUM TAB PO SCH ×2 (08:38→21:33)
[2017-03-28] MEDS: fentaNYL 100 MCG PATCH TD SCH (09:00)
[2017-03-28] MEDS: MUPIROCIN 2% 22 GM OINT NS SCH ×2 (11:42→22:39)
[2017-03-28 12:07] LABS: POTASSIUM 4.6 mEq/L (3.5-5.2)
--- NOTE | 2017-03-28 12:48 | ASMTCASEMG ---
Living Arrangements What is your living Answers: With Spouse arrangement? Who do you live with? Type Of Residence What kind of residence do Answers: House you live in? Discharge Plan Comments Coordination Status Comments Notes: Patient is a 71yo male who was admitted for MVR, possible AVR. OT/PT ordered. D/C needs TBD. CM will follow. Date Signed: 03/28/2017 12:47 PM Electronically Signed By:Giovanna Lau LCSW
[2017-03-28] MEDS: ASPIRIN 81 MG CHEWABLE TAB PO SCH (14:05)
[2017-03-28] MEDS ORDERED: WARFARIN SODIUM 5 MG TAB PO ONE (16:00)
[2017-03-28] MEDS: AMITRIPTYLINE HCL 25 MG TAB PO SCH (21:31)
[2017-03-28] MEDS: ESCITALOPRAM OXALATE 10 MG TAB PO SCH (21:32)
[2017-03-28] MEDS: MELATONIN 3 MG TAB PO SCH (21:32)
[2017-03-29] MEDS: KETOROLAC 30 MG/1 ML SDV IVP SCH ×3 (05:45→17:59)
[2017-03-29 06:05] LABS: % IMMATURE GRANULYOCYTES 0.5 % (0.0-1.1); ABSOLUTE IMMATURE GRANULOCYTES 0.07 10^3/uL (0.00-0.10); ADD DIFF? NO; ADD MORPH? NO; ADD SCAN? NO; ATYPICAL LYMPHOCYTE FLAG 0 (0-99); FRAGMENT RBC FLAG 0 (0-99); HEMATOCRIT 24.6 % (40.0-51.0); HEMOGLOBIN 8.3 g/dL (13.7-17.5); LEFT SHIFT FLG 10 (0-99); LIPEMIA HEMOLYSIS FLAG 80 (0-99); MEAN CELL HEMOGLOBIN 33.1 pg (27.9-34.1); MEAN CELL HEMOGLOBIN CONCENTR. 33.7 g/dL (32.4-36.7); MEAN PLATELET VOLUME 10.5 fL (8.7-11.7); PLATELET CLUMPS FLAG 0 (0-99); PLATELET COUNT 53 10^3/uL (150-400); RED BLOOD CELL COUNT 2.51 10^6/uL (4.40-6.38); RED CELL DISTRIBUTION WIDTH 13.3 % (11.5-15.2)
[2017-03-29 06:14] LABS: INR 1.21 (0.83-1.16); PROTIME(PATIENT) 15.5 SEC (12.0-15.0)
[2017-03-29] MEDS: HYDROCODONE/APAP 5/325 TAB PO PRN ×4 (06:14→22:05)
[2017-03-29 06:27] LABS: ANION GAP 5 mEq/L (8-16); CARBON DIOXIDE 26 mEq/l (22-31); CHLORIDE 104 mEq/L (97-110); CREATININE 0.9 mg/dL (0.7-1.3); GLOMERULAR FILTRATION RATE > 60; GLUCOSE 108 mg/dL (70-100); POTASSIUM 4.9 mEq/L (3.5-5.2); SODIUM 135 mEq/L (134-144)
--- NOTE | 2017-03-29 07:13 | SOAPPROG ---
ISABEL Progress Note Assessment/Plan: Assessment: POD#2 Redo sternotomy, explant mitral annuloplasty ring, MVR with # 25 Magna bioprosthesis, AVR with #23 Magna bioprosthesis, Negro-Maze IV Severe MR/failed mitral repair - s/p MVR with bioprosthesis valve. Antithrombotic prophylaxis with Coumadin - parameters as per PAF. Moderate AI s/p AVR - mgmt as per MVR Paroxysmal atrial fib/flutter - s/p CM4. Thromboprophylaxis with Coumadin, INR goal 2-3, duration dependent on rhythm. Diastolic class III CHF, chronic - Transient pressor support with dopamine. Staggered reintro of HF meds as tolerated. Acute expected blood loss anemia with coagulopathy - Stable without the need for blood product transfusions. Acute on chronic pain (back) with opioid dependence - Controlled with multimodal analgesia. Transition to home regimen once chest tubes out. Plan: Start gentle diuresis. Repeat H/H. Keep chest tubes one more day. Cont Coumadin 5 mg if hct stable. 03/29/17 08:02 Subjective: Slightly dizzy (as has been since woke up from surg) but stable on his feet. Adequate analgesia. Craving butter on his toast and ice-cream. Objective: Vital Signs Temp Pulse Resp BP Pulse Ox 36.6 C 70 19 119/59 L 98 03/29/17 04:00 03/29/17 04:00 03/29/17 04:00 03/29/17 04:00 03/29/17 04:00 Laboratory Results 03/29/17 05:50 03/29/17 05:50 03/28/17 03/29/17 03/30/17 05:59 05:59 05:59 Intake Total 2454.6 1250 Output Total 2545 1285 Balance -90.4 -35 PT 15.5 SEC (12.0-15.0) H 03/29/17 05:50 INR 1.21 (0.83-1.16) H 03/29/17 05:50 AVPaced 70. Stable SBPs > 100. Balanced I/Os. +7 kg overall. CXR -> bibasilar atelectasis. CTOP dissipating and nearing removal criteria. H/H and plt drop, ? dilutional Physical Exam - Physical Exam General Appearance: alert, no apparent distress Respiratory: crackles (bases), other (blakes x 3 to bulb suction, serosang drainage) Cardiac/Chest: regular rate, rhythm, other (Sternotomy CDI.) Abdomen: normal bowel sounds, non-tender, soft Skin: warm/dry Extremities: other (no visible peripheral edema) ICD10 Worksheet Patient Problems: Problems Problem Status Onset Bioprosthetic mitral valve replacement, current hospitalization Acute S/P AVR (aortic valve replacement) Acute S/P ablation operation for arrhythmia Acute Atrial fibrillation Acute Complete heart block, post-surgical Acute Expressive aphasia Acute Severe mitral regurgitation Acute Status post mitral valve repair Acute Status post placement of cardiac pacemaker Acute Status post tricuspid valve repair Acute Tachyarrhythmia Acute Tricuspid valve regurgitation, secondary Acute Chronic back pain Chronic Chronic narcotic dependence Chronic Hypothyroidism Chronic
[2017-03-29] MEDS ORDERED: fentaNYL 100 MCG PATCH TD SCH (08:00)
[2017-03-29] MEDS: SENNOSIDES/DOCUSATE SODIUM TAB PO SCH ×2 (08:22→22:04)
[2017-03-29] MEDS: PANTOPRAZOLE SODIUM 40 MG TAB PO SCH (08:22)
[2017-03-29] MEDS: MUPIROCIN 2% 22 GM OINT NS SCH (08:23)
[2017-03-29] MEDS ORDERED: FUROSEMIDE 20 MG/2 ML VIAL IVP ONE (09:00)
[2017-03-29] MEDS: CARBOXYMETHYLCELLULOSE 0.5% 0.4 ML DROPERETTE EACHEYE SCH ×2 (09:17→22:04)
[2017-03-29 13:17] LABS: HEMATOCRIT 23.8 % (40.0-51.0); HEMOGLOBIN 8.2 g/dL (13.7-17.5)
--- NOTE | 2017-03-29 14:58 | ASMTCMCOM ---
CM Note CM Note Notes: OT is recommending home independent. PT recommendations are TBD. Anticipates that pt will most likely d/c independent w/ cardiac rehab. CM available for d/c needs. Plan: Independent Date Signed: 03/29/2017 02:57 PM Electronically Signed By:BOGDAN Barton
[2017-03-29] MEDS ORDERED: WARFARIN SODIUM 5 MG TAB PO ONE (16:00)
[2017-03-29] MEDS: MELATONIN 3 MG TAB PO SCH (22:04)
[2017-03-29] MEDS: AMITRIPTYLINE HCL 25 MG TAB PO SCH (22:04)
[2017-03-29] MEDS: ESCITALOPRAM OXALATE 10 MG TAB PO SCH (22:05)
[2017-03-30] MEDS: KETOROLAC 30 MG/1 ML SDV IVP SCH ×5 (00:15→23:26)
[2017-03-30] MEDS: HYDROCODONE/APAP 5/325 TAB PO PRN ×5 (04:16→21:35)
[2017-03-30 05:33] LABS: ABSOLUTE IMMATURE GRANULOCYTES 0.15 10^3/uL (0.00-0.10); ADD DIFF? NO; ADD MORPH? NO; ADD SCAN? NO; ATYPICAL LYMPHOCYTE FLAG 0 (0-99); FRAGMENT RBC FLAG 0 (0-99); HEMATOCRIT 23.4 % (40.0-51.0); HEMOGLOBIN 7.9 g/dL (13.7-17.5); LEFT SHIFT FLG 10 (0-99); LIPEMIA HEMOLYSIS FLAG 90 (0-99); MEAN CELL HEMOGLOBIN 33.5 pg (27.9-34.1); MEAN CELL HEMOGLOBIN CONCENTR. 33.8 g/dL (32.4-36.7); MEAN CELL VOLUME 99.2 fL (81.5-99.8); MEAN PLATELET VOLUME 10.5 fL (8.7-11.7); PLATELET CLUMPS FLAG 0 (0-99); PLATELET COUNT 54 10^3/uL (150-400); RED BLOOD CELL COUNT 2.36 10^6/uL (4.40-6.38); RED CELL DISTRIBUTION WIDTH 13.6 % (11.5-15.2)
[2017-03-30 05:43] LABS: INR 1.24 (0.83-1.16); PROTIME(PATIENT) 15.8 SEC (12.0-15.0)
[2017-03-30 05:45] LABS: ANION GAP 7 mEq/L (8-16); CALCIUM 8.1 mg/dL (8.5-10.4); CARBON DIOXIDE 26 mEq/l (22-31); CHLORIDE 102 mEq/L (97-110); CREATININE 0.9 mg/dL (0.7-1.3); GLOMERULAR FILTRATION RATE > 60; GLUCOSE 100 mg/dL (70-100); POTASSIUM 4.4 mEq/L (3.5-5.2); SODIUM 135 mEq/L (134-144)
--- NOTE | 2017-03-30 07:18 | SOAPPROG ---
SOAP Progress Note Assessment/Plan: POD #3: redo sternotomy, explant mitral annuloplasty ring, MVR with #25 Magna bioprosthesis, AVR with #23 Magna bioprosthesis, Negro-Maze IV Severe MR with failed MV repair s/p MVR with bioprosthetic valve - Coumadin as per PAF. Moderate AI s/p AVR - stable. Paroxysmal atrial fib/flutter - s/p CM4. Thromboprophylaxis with Coumadin, INR goal 2-3, duration dependent on rhythm. Diastolic class III CHF, chronic - introduction of HF meds as tolerated. Acute blood loss anemia with thrombocytopenia - HCT without the need for blood product transfusions. Platelets remain suppressed. Monitor. Chronic back pain with opioid dependence - pain well-controlled with post-op regimen. Will restart home regimen when appropriate. Subjective: Pain well-controlled. Denies SOB. Objective: Vital Signs Temp Pulse Resp BP Pulse Ox 36.4 C 65 19 101/56 L 94 03/30/17 04:00 03/30/17 04:00 03/30/17 04:00 03/30/17 04:00 03/30/17 04:00 Laboratory Results 03/30/17 05:20 03/30/17 05:20 03/29/17 03/30/17 03/31/17 05:59 05:59 05:59 Intake Total 1250 2080 Output Total 1285 1745 Balance -35 335 PT 15.8 SEC (12.0-15.0) H 03/30/17 05:20 INR 1.24 (0.83-1.16) H 03/30/17 05:20 Physical Exam - Physical Exam General Appearance: WD/WN, alert, no apparent distress EENT: No scleral icterus (R), No scleral icterus (L) Neck: normal inspection Respiratory: No respiratory distress Cardiac/Chest: regular rate, rhythm Abdomen: non-tender, soft, No distended Skin: normal color, warm/dry Extremities: pedal edema Neuro/Psych: no motor/sensory deficits, alert, normal mood/affect, oriented x 3 ICD10 Worksheet Patient Problems: Problems Problem Status Onset Bioprosthetic mitral valve replacement, current hospitalization Acute S/P AVR (aortic valve replacement) Acute S/P ablation operation for arrhythmia Acute Atrial fibrillation Acute Complete heart block, post-surgical Acute Expressive aphasia Acute Severe mitral regurgitation Acute Status post mitral valve repair Acute Status post placement of cardiac pacemaker Acute Status post tricuspid valve repair Acute Tachyarrhythmia Acute Tricuspid valve regurgitation, secondary Acute Chronic back pain Chronic Chronic narcotic dependence Chronic Hypothyroidism Chronic
[2017-03-30] MEDS ORDERED: FUROSEMIDE 40 MG/4 ML VIAL IVP ONE (08:15)
[2017-03-30] MEDS ORDERED: POTASSIUM CL 20 MEQ TAB PO ONE (08:15)
[2017-03-30] MEDS: SENNOSIDES/DOCUSATE SODIUM TAB PO SCH ×2 (08:58→21:23)
[2017-03-30] MEDS: PANTOPRAZOLE SODIUM 40 MG TAB PO SCH (08:58)
[2017-03-30] MEDS: CARBOXYMETHYLCELLULOSE 0.5% 0.4 ML DROPERETTE EACHEYE SCH ×2 (09:14→21:22)
[2017-03-30] MEDS ORDERED: WARFARIN SODIUM 5 MG TAB PO ONE (16:00)
[2017-03-30] MEDS: ESCITALOPRAM OXALATE 10 MG TAB PO SCH (21:21)
[2017-03-30] MEDS: AMITRIPTYLINE HCL 25 MG TAB PO SCH (21:22)
[2017-03-30] MEDS: MELATONIN 3 MG TAB PO SCH (21:25)
[2017-03-31] MEDS: HYDROCODONE/APAP 5/325 TAB PO PRN ×5 (04:17→22:52)
[2017-03-31 04:28] LABS: HEMATOCRIT 22.7 % (40.0-51.0); HEMOGLOBIN 7.8 g/dL (13.7-17.5); MEAN CELL HEMOGLOBIN 33.6 pg (27.9-34.1); MEAN CELL HEMOGLOBIN CONCENTR. 34.4 g/dL (32.4-36.7); MEAN CELL VOLUME 97.8 fL (81.5-99.8); RED BLOOD CELL COUNT 2.32 10^6/uL (4.40-6.38); RED CELL DISTRIBUTION WIDTH 13.4 % (11.5-15.2)
[2017-03-31 04:38] LABS: INR 1.3 (0.83-1.16); PROTIME(PATIENT) 16.4 SEC (12.0-15.0)
[2017-03-31] MEDS: KETOROLAC 30 MG/1 ML SDV IVP SCH (06:01)
[2017-03-31] MEDS: LEVOTHYROXINE 100 MCG TAB PO SCH (06:01)
--- NOTE | 2017-03-31 07:11 | SOAPPROG ---
SOAP Progress Note Assessment/Plan: POD #4: redo sternotomy, explant mitral annuloplasty ring, MVR with #25 Magna bioprosthesis, AVR with #23 Magna bioprosthesis, Negro-Maze IV Severe MR with failed MV repair s/p MVR with bioprosthetic valve - Coumadin as per PAF. Moderate AI s/p AVR - stable. Routine post-op ECHO today. Paroxysmal atrial fib/flutter - s/p CM4. Thromboprophylaxis with Coumadin, INR goal 2-3, duration dependent on rhythm. Diastolic class III CHF, chronic - Will intensify diuresis today. CTs to remain d/t high output. REJI/ARB avoided d/t BP on lower side. Acute blood loss anemia with thrombocytopenia - HCT low without the need for blood product transfusions. Platelets rebounding. Monitor. Chronic back pain with opioid dependence - pain well-controlled with post-op regimen. Will wean fentanyl patch down to 75 mcg. Stop Toradol. Continue [place] PRN breakthrough pain. Subjective: Pain well-controlled. Denies SOB. Objective: Vital Signs Temp Pulse Resp BP Pulse Ox 36.7 C 70 11 L 108/63 94 03/31/17 04:00 03/31/17 04:00 03/31/17 04:00 03/31/17 04:00 03/31/17 04:00 Laboratory Results 03/31/17 04:20 03/30/17 05:20 03/30/17 03/31/17 04/01/17 05:59 05:59 05:59 Intake Total 2080 820 Output Total 1745 1845 Balance 335 -1025 PT 16.4 SEC (12.0-15.0) H 03/31/17 04:20 INR 1.30 (0.83-1.16) H 03/31/17 04:20 Physical Exam - Physical Exam General Appearance: WD/WN, alert, no apparent distress EENT: No scleral icterus (R), No scleral icterus (L) Neck: normal inspection Respiratory: No respiratory distress Cardiac/Chest: regular rate, rhythm Abdomen: non-tender, soft, No distended Skin: normal color, warm/dry Extremities: pedal edema Neuro/Psych: no motor/sensory deficits, alert, normal mood/affect, oriented x 3 ICD10 Worksheet Patient Problems: Problems Problem Status Onset Bioprosthetic mitral valve replacement, current hospitalization Acute S/P AVR (aortic valve replacement) Acute S/P ablation operation for arrhythmia Acute Atrial fibrillation Acute Complete heart block, post-surgical Acute Expressive aphasia Acute Severe mitral regurgitation Acute Status post mitral valve repair Acute Status post placement of cardiac pacemaker Acute Status post tricuspid valve repair Acute Tachyarrhythmia Acute Tricuspid valve regurgitation, secondary Acute Chronic back pain Chronic Chronic narcotic dependence Chronic Hypothyroidism Chronic
[2017-03-31] MEDS ORDERED: POTASSIUM CL 20 MEQ TAB PO ONE (08:19)
[2017-03-31] MEDS ORDERED: FUROSEMIDE 40 MG/4 ML VIAL IVP ONE ×2 (08:19→20:12)
[2017-03-31] MEDS ORDERED: fentaNYL 75 MCG PATCH TD SCH (09:15)
[2017-03-31] MEDS: PANTOPRAZOLE SODIUM 40 MG TAB PO SCH (10:10)
[2017-03-31] MEDS: SENNOSIDES/DOCUSATE SODIUM TAB PO SCH ×2 (10:10→21:13)
[2017-03-31] MEDS: CARBOXYMETHYLCELLULOSE 0.5% 0.4 ML DROPERETTE EACHEYE SCH ×2 (10:11→21:13)
[2017-03-31] MEDS ORDERED: POTASSIUM CL 20 MEQ TAB PO SCH (15:00)
[2017-03-31 15:12] LABS: HEPARIN INDUCED ANTIBODY Negative (Negative); HEPARIN-PF4 IgG ANTIBODY ELISA < 0.075 OD (<0.400)
[2017-03-31] MEDS ORDERED: WARFARIN SODIUM 5 MG TAB PO ONE (16:00)
[2017-03-31] MEDS: traMADol 50 MG TAB PO PRN ×2 (16:36→21:13)
[2017-03-31] MEDS: FUROSEMIDE 40 MG/4 ML VIAL IVP SCH (16:39)
[2017-03-31] MEDS: fentaNYL 100 MCG PATCH TD SCH (19:29)
[2017-03-31] MEDS: ESCITALOPRAM OXALATE 10 MG TAB PO SCH (21:13)
[2017-03-31] MEDS: FERROUS SULFATE 325 MG TAB PO SCH (21:13)
[2017-03-31] MEDS: AMITRIPTYLINE HCL 25 MG TAB PO SCH (21:13)
[2017-03-31] MEDS: MELATONIN 3 MG TAB PO SCH (21:13)
[2017-04-01] MEDS: HYDROCODONE/APAP 5/325 TAB PO PRN (04:01)
[2017-04-01 04:26] LABS: ANION GAP 6 mEq/L (8-16); CALCIUM 8.2 mg/dL (8.5-10.4); CARBON DIOXIDE 27 mEq/l (22-31); CHLORIDE 102 mEq/L (97-110); CREATININE 1.1 mg/dL (0.7-1.3); GLOMERULAR FILTRATION RATE > 60; GLUCOSE 98 mg/dL (70-100); POTASSIUM 5.3 mEq/L (3.5-5.2); SODIUM 135 mEq/L (134-144)
[2017-04-01] MEDS: LEVOTHYROXINE 100 MCG TAB PO SCH (05:14)
--- NOTE | 2017-04-01 06:55 | SOAPPROG ---
SOAP Progress Note Assessment/Plan: Assessment: POD#5 Redo sternotomy, explant mitral annuloplasty ring, MVR with # 25 Magna bioprosthesis, AVR with #23 Magna bioprosthesis, Negro-Maze IV Severe MR/failed mitral repair - s/p MVR with bioprosthesis valve. Antithrombotic prophylaxis with Coumadin - parameters as per PAF. Moderate AI s/p AVR - mgmt as per MVR Presence of permanent pacemaker with paroxysmal atrial fib/flutter - s/p CM4. Predominant postop rhythm AV paced. Thromboprophylaxis with Coumadin, INR goal 2 -3, duration dependent on rhythm. AF prophylaxis with BB as allowed by BP. Diastolic class III CHF, chronic - Transient pressor support with dopamine. Actively diuresing moderate fluid overload. Staggered reintro of HF meds as allowed by BP and stability of renal fx. Acute expected blood loss anemia with coagulopathy - Stable without the need for blood product transfusions. Precautionary HIT neg. Platelet rebound noted. Started on 2 wk course Fe suppl. Acute on chronic pain (back) with opioid dependence - Controlled with multimodal analgesia. Transition to home regimen once chest tubes out. Plan: Cont BID IV diuresis. Hold KCl suppl. Remove chest tubes. D/C fentanyl patch, resume morphine SR and prn oxy IR. Cont coumadin 5 mg daily. Dispo - Home w [facility] vs SNF next 1-2 days. 04/01/17 06:48 Subjective: Doing ok. Less fuzzy on reduced dose fentanyl patch. +BMs. Would like to go home but nervous about that happening tomorrow. Objective: Vital Signs Temp Pulse Resp BP Pulse Ox 36.7 C 70 17 110/73 91 L 04/01/17 04:17 03/31/17 23:15 04/01/17 04:17 04/01/17 04:05 04/01/17 04:17 Laboratory Results 04/01/17 03:44 04/01/17 03:44 03/31/17 04/01/17 04/02/17 05:59 05:59 05:59 Intake Total 820 1410 Output Total 2165 2370 Balance -1345 -960 PT 16.4 SEC (12.0-15.0) H 03/31/17 04:20 INR 1.30 (0.83-1.16) H 03/31/17 04:20 No tachyarrhythmias. SBP remains on low side. Modest suppl O2 req. Adequate fluid balance. CTOP at removal criteria. K oversuppl. Platelets on the rise. Appropriate rise in INR. - Pending Discharge Pending Discharge Within 48 Hours: Yes Pending Discharge Date: 04/03/17 Pending Discharge Time: 11:00 Physical Exam - Physical Exam General Appearance: alert, no apparent distress Respiratory: lungs clear, other (blakes x 3 to bulb suction, thin serosang drainage) Cardiac/Chest: regular rate, rhythm, other (Sternum grossly stable. Sternotomy CDI) Abdomen: non-tender, soft Skin: warm/dry Extremities: other (no visible dependent edema) ICD10 Worksheet Patient Problems: Problems Problem Status Onset Bioprosthetic mitral valve replacement, current hospitalization Acute S/P AVR (aortic valve replacement) Acute S/P ablation operation for arrhythmia Acute Atrial fibrillation Acute Complete heart block, post-surgical Acute Expressive aphasia Acute Severe mitral regurgitation Acute Status post mitral valve repair Acute Status post placement of cardiac pacemaker Acute Status post tricuspid valve repair Acute Tachyarrhythmia Acute Tricuspid valve regurgitation, secondary Acute Chronic back pain Chronic Chronic narcotic dependence Chronic Hypothyroidism Chronic
[2017-04-01] MEDS: SENNOSIDES/DOCUSATE SODIUM TAB PO SCH ×2 (07:44→22:12)
[2017-04-01] MEDS: PANTOPRAZOLE SODIUM 40 MG TAB PO SCH (07:44)
[2017-04-01] MEDS: CARBOXYMETHYLCELLULOSE 0.5% 0.4 ML DROPERETTE EACHEYE SCH ×2 (07:44→22:13)
[2017-04-01] MEDS: FUROSEMIDE 40 MG/4 ML VIAL IVP SCH ×2 (07:45→14:36)
[2017-04-01] MEDS: FERROUS SULFATE 325 MG TAB PO SCH ×2 (07:45→22:11)
[2017-04-01 08:17] LABS: INR 1.41 (0.83-1.16); PROTIME(PATIENT) 17.4 SEC (12.0-15.0)
[2017-04-01] MEDS: oxyCODONE IR 5 MG TAB PO PRN ×3 (10:16→20:57)
--- NOTE | 2017-04-01 13:34 | ASMTCMCOM ---
CM Note CM Note Notes: Met with patient and to discuss discharge planning - per Dr Cerda's note, patient will need SNF or HHC. Patient and want to go home with home care. Have used [facility] in the past. They feel they will have adequate support to manage at home with home care. Y[place]asta at [facility] notified that RN/PT/OT will be ordered upon discharge. Current Case Management plan: home with [facility] RN/PT/OT Date Signed: 04/01/2017 01:34 PM Electronically Signed By:Georgia Bhatti RN
--- NOTE | 2017-04-01 14:15 | ECHO ---
[email or web address] [address] [address] Main: [phone] Fax: Transthoracic Echocardiogram Name: KESHAWN WALDRON MR#: [id number] Study Date: 04/01/2017 Study Time: 09:29 AM Date of : 1945 Age: 71 year(s) Height: 177.8 cm (70 in.) Weight: 85.73 kg (189 lb.) BSA: 2.04 m2 Gender: Male Examination: Echo Indication: MVR with #25 Magna bioprosthesis, AVR with #23 Magna bioprosthesis Image Quality: Contrast: Requested by: Jj Enrique BP: 95 mmHg/58 mmHg Heart Rate: Rhythm: Indication: MVR with #25 Magna bioprosthesis, AVR with #23 Magna bioprosthesis Procedure Staff Rn Testing: aPrrish Gao Reading Physician: Bjorn Hickey Requesting Provider: Conclusions: Normal size left ventricle. Global hypercontractility of the left ventricle. EF is 64 %. No regional wall motion abnormality. Normal size right ventricle. Normal RV function. There is a pacemaker lead noted in the right ventricle. The left atrium is normal in size. The right atrium is normal in size. A bioprothetic mitral valve is in place. There is a #[address] with a MV mean PG of 7 mmHg. The aortic valve is a bioprosthesis. There is a #23 Magna bioprothesis with a AV mean PG of 19 mmHg. There is a tricuspid valve ring. There are no subcostal views available due to post chest tube dressings.. No sig change from previous. Measurements: Chambers Valvular Assessment AV/MV Valvular Assessment TV/PV Normal Normal Normal Name Value Range Name Value Range Name Value Range Ao Jayne (MM): 3.3 cm (2.2 cm-3.7 AV Vmax: 2.72 m/s (1 m/s-1.7 PV Vmax: 0.84 m/s (0.6 m/s-0.9 cm) m/s) m/s) IVSd (2D): 1.2 cm (0.6 cm-1.1 AV maxP mmHg ( - ) PV PGmax: 3 mmHg ( - ) cm) AV meanP mmHg ( - ) LVDd (2D): 3.9 cm (4.2 cm-5.9 LVOT Vmax: 1.03 m/s (0.7 m/s-1.1 cm) m/s) LVDs (2D): 2.6 cm (2.1 cm-4 KAMARI (Vmax): 1.6 cm2 ( - ) cm) KAMARI (VTI): 1.5 cm ( - ) Patient: EKSHAWN WALDRON Study Date: 04/01/2017 Page 1 of 2 09:29 AM LVPWd (2D): 1.1 cm (0.6 cm-1 MV E Vmax: 2.06 m/s ( - ) cm) MV meanP mmHg ( - ) LVOTd 2.3 cm 2.3 cm mm MV PHT: 0.101 s ( - ) LVEF (2D): 64 (>=54 %) MVA (Vmax): 1.4 m/s ( - ) MVA (PHT): 2.2 s ( - ) Continued Measurements: Chambers Valvular Assessment AV/MV Name Value Name Value LADs Lon.6 cm MV DecTime: 331 m/s LA Area: 19.8 cm2 MV VTI: 57.70 cm Findings: Left Ventricle: Normal size left ventricle. Global hypercontractility of the left ventricle. EF is 64 %. No regional wall motion abnormality. Right Ventricle: Normal size right ventricle. Normal RV function. There is a pacemaker lead noted in the right ventricle. Left Atrium: The left atrium is normal in size. Right Atrium: The right atrium is normal in size. Mitral Valve: A bioprothetic mitral valve is in place. There is a #[address] with a MV mean PG of 7 mmHg. Aortic Valve: The aortic valve is a bioprosthesis. There is a #23 Magna bioprothesis with a AV mean PG of 19 mmHg. Tricuspid Valve: There is a tricuspid valve ring. Pulmonic Valve: The pulmonic valve is normal in appearance and function. Aorta: The aorta is normal. Pericardium: No pericardial effusion. Exam Comments: There are no subcostal views available due to post chest tube dressings.. (No Signature Object) Patient: KESHAWN WALDRON Study Date: 04/01/2017 Page 2 of 2 09:29 AM [id number]
[2017-04-01] MEDS ORDERED: WARFARIN SODIUM 5 MG TAB PO ONE (16:00)
[2017-04-01 16:23] LABS: HEMATOCRIT 25.6 % (40.0-51.0); HEMOGLOBIN 8.4 g/dL (13.7-17.5)
[2017-04-01 17:15] LABS: POTASSIUM 4.4 mEq/L (3.5-5.2)
[2017-04-01] MEDS: morphINE SR 15 MG TAB PO SCH (19:35)
[2017-04-01] MEDS: traMADol 50 MG TAB PO PRN (21:03)
[2017-04-01] MEDS: ESCITALOPRAM OXALATE 10 MG TAB PO SCH (22:11)
[2017-04-01] MEDS: MELATONIN 3 MG TAB PO SCH (22:12)
[2017-04-01] MEDS: AMITRIPTYLINE HCL 25 MG TAB PO SCH (22:13)
[2017-04-02] MEDS: oxyCODONE IR 5 MG TAB PO PRN ×2 (01:02→04:30)
[2017-04-02] MEDS: traMADol 50 MG TAB PO PRN ×5 (01:03→22:33)
[2017-04-02 04:25] LABS: HEMATOCRIT 20.3 % (40.0-51.0); MEAN CELL HEMOGLOBIN 33.3 pg (27.9-34.1); MEAN CELL VOLUME 98.1 fL (81.5-99.8); RED BLOOD CELL COUNT 2.07 10^6/uL (4.40-6.38); RED CELL DISTRIBUTION WIDTH 13.7 % (11.5-15.2)
[2017-04-02 04:30] LABS: INR 1.49 (0.83-1.16); PROTIME(PATIENT) 18.2 SEC (12.0-15.0)
[2017-04-02] MEDS: LEVOTHYROXINE 100 MCG TAB PO SCH (04:32)
[2017-04-02 04:37] LABS: HEMOGLOBIN 6.9 g/dL (13.7-17.5)
[2017-04-02 04:42] LABS: ANION GAP 8 mEq/L (8-16); CALCIUM 8.3 mg/dL (8.5-10.4); CARBON DIOXIDE 27 mEq/l (22-31); CHLORIDE 102 mEq/L (97-110); GLOMERULAR FILTRATION RATE > 60; GLUCOSE 93 mg/dL (70-100); POTASSIUM 4.3 mEq/L (3.5-5.2); SODIUM 137 mEq/L (134-144)
--- NOTE | 2017-04-02 06:10 | SOAPPROG ---
SOEDUAR Progress Note Assessment/Plan: POD #6: redo sternotomy, explant mitral annuloplasty ring, MVR with #25 Magna bioprosthesis, AVR with #23 Magna bioprosthesis, Negro-Maze IV Severe MR with failed MV repair s/p MVR with bioprosthetic valve - Coumadin as per PAF. Moderate AI s/p AVR - stable. Paroxysmal atrial fib/flutter - s/p CM4. Thromboprophylaxis with Coumadin, INR goal 2-3, duration dependent on rhythm. Diastolic class III CHF, chronic - Continue BID Lasix. REJI/ARB avoided d/t low BP. Acute blood loss anemia with thrombocytopenia - will transfuse 1U PRBC. Platelets rebounding. Chronic back pain with opioid dependence - pain controlled with modified home regimen. Will consider lowering dosages and adding NSAIDs as pt is forgetful. Subjective: States he has neck and head pain. Feels like he's not doing as well as he was. Objective: Vital Signs Temp Pulse Resp BP Pulse Ox 36.6 C 70 19 103/64 95 04/02/17 04:00 04/02/17 04:00 04/02/17 04:00 04/02/17 04:00 04/02/17 04:00 Laboratory Results 04/02/17 03:50 04/02/17 03:50 04/01/17 04/02/17 04/03/17 05:59 05:59 05:59 Intake Total 1410 1340 Output Total 2370 1650 Balance -960 -310 PT 18.2 SEC (12.0-15.0) H 04/02/17 03:50 INR 1.49 (0.83-1.16) H 04/02/17 03:50 Physical Exam - Physical Exam General Appearance: no apparent distress EENT: No scleral icterus (R), No scleral icterus (L) Neck: normal inspection Respiratory: No respiratory distress Cardiac/Chest: other (paced) Abdomen: non-tender, soft, No distended Skin: normal color, warm/dry Extremities: pedal edema Neuro/Psych: no motor/sensory deficits, cognition abnormalities, No alert ICD10 Worksheet Patient Problems: Problems Problem Status Onset Bioprosthetic mitral valve replacement, current hospitalization Acute S/P AVR (aortic valve replacement) Acute S/P ablation operation for arrhythmia Acute Atrial fibrillation Acute Complete heart block, post-surgical Acute Expressive aphasia Acute Severe mitral regurgitation Acute Status post mitral valve repair Acute Status post placement of cardiac pacemaker Acute Status post tricuspid valve repair Acute Tachyarrhythmia Acute Tricuspid valve regurgitation, secondary Acute Chronic back pain Chronic Chronic narcotic dependence Chronic Hypothyroidism Chronic
[2017-04-02 06:52] LABS: HEMATOCRIT 22.2 % (40.0-51.0); HEMOGLOBIN 7.6 g/dL (13.7-17.5)
[2017-04-02] MEDS: morphINE SR 15 MG TAB PO SCH ×2 (07:02→20:19)
[2017-04-02] MEDS ORDERED: NAPROXEN SODIUM 220 MG TAB PO PRN (08:18)
[2017-04-02] MEDS: FUROSEMIDE 40 MG/4 ML VIAL IVP SCH (08:42)
[2017-04-02] MEDS: PANTOPRAZOLE SODIUM 40 MG TAB PO SCH (08:42)
[2017-04-02] MEDS: FERROUS SULFATE 325 MG TAB PO SCH ×2 (08:42→20:19)
[2017-04-02] MEDS: NAPROXEN SODIUM 220 MG TAB PO SCH ×3 (08:42→20:17)
[2017-04-02] MEDS: CARBOXYMETHYLCELLULOSE 0.5% 0.4 ML DROPERETTE EACHEYE SCH ×2 (08:44→20:18)
[2017-04-02] MEDS ORDERED: morphINE SR 15 MG TAB PO SCH (09:00)
[2017-04-02] MEDS ORDERED: WARFARIN SODIUM 5 MG TAB PO ONE (16:00)
[2017-04-02] MEDS ORDERED: FUROSEMIDE 40 MG/4 ML VIAL IVP ONE (19:00)
[2017-04-02] MEDS: MELATONIN 3 MG TAB PO SCH (20:19)
[2017-04-02] MEDS: ESCITALOPRAM OXALATE 10 MG TAB PO SCH (20:19)
[2017-04-02] MEDS: AMITRIPTYLINE HCL 25 MG TAB PO SCH (20:23)
[2017-04-03] MEDS: LEVOTHYROXINE 100 MCG TAB PO SCH (04:29)
[2017-04-03] MEDS: traMADol 50 MG TAB PO PRN ×4 (04:29→20:41)
[2017-04-03 04:52] LABS: HEMATOCRIT 25.8 % (40.0-51.0)
[2017-04-03 04:59] LABS: INR 1.54 (0.83-1.16); PROTIME(PATIENT) 18.6 SEC (12.0-15.0)
[2017-04-03 05:11] LABS: ANION GAP 11 mEq/L (8-16); CALCIUM 8.1 mg/dL (8.5-10.4); CARBON DIOXIDE 28 mEq/l (22-31); CHLORIDE 100 mEq/L (97-110); CREATININE 0.9 mg/dL (0.7-1.3); GLOMERULAR FILTRATION RATE > 60; GLUCOSE 88 mg/dL (70-100); POTASSIUM 4.1 mEq/L (3.5-5.2); SODIUM 139 mEq/L (134-144)
[2017-04-03] MEDS: NAPROXEN SODIUM 220 MG TAB PO SCH ×3 (06:23→23:00)
[2017-04-03] MEDS: ACETAMINOPHEN 325 MG TAB PO PRN ×3 (06:23→23:04)
--- NOTE | 2017-04-03 07:04 | SOAPPROG ---
SOAP Progress Note Assessment/Plan: Assessment: POD#7 Redo sternotomy, explant mitral annuloplasty ring, MVR with # 25 Magna bioprosthesis, AVR with #23 Magna bioprosthesis, Negro-Maze IV Severe MR/failed mitral repair - s/p tissue MVR. Tubes and wires out. Antithrombotic prophylaxis with Coumadin - parameters as per PAF. Moderate AI - s/p tissue AVR. Mgmt as per MVR Presence of permanent pacemaker with paroxysmal atrial fib/flutter - s/p CM4. Predominant postop rhythm AV paced. Thromboprophylaxis with Coumadin, INR goal 2 -3, duration dependent on rhythm. AF prophylaxis with BB as allowed by BP. Diastolic class III CHF, chronic - Transient pressor support with dopamine. Inc perihilar infiltrates post yest PRBC sugg of CHF (moreso than TRALI) despite active diuresis of moderate fluid overload. Will theodora echo. Earlier postop echo notable for LVEF 60%, nl sized atria, and nl bioprosthetic valve fx. Staggered reintro of HF meds as allowed by BP and stability of renal fx. Acute expected blood loss anemia with coagulopathy - Stable. 2u PRBC yest for relative hypotension with marginal H/H. Precautionary HIT neg. Platelet rebound noted. Started on 2 wk course Fe suppl. Acute on chronic pain (back) with opioid dependence - Controlled with multimodal analgesia. Transition to home regimen in progress. Breakthrough dose of percocet discontinued d/t somnolence. Plan: Cont IV diuresis. Cont coumadin 5 mg daily. Limited echo to reassess ventricular fx. Dispo - Home w C vs SNF next 2-3 days. 04/03/17 07:00 Subjective: Feels more "with it" off percs. Able to walk 1 lap this am but did have to take a few breaks and felt easily winded. Good appetite. +BM. Objective: Vital Signs Temp Pulse Resp BP Pulse Ox 36.6 C 70 16 110/68 100 04/03/17 04:00 04/03/17 04:00 04/03/17 04:00 04/03/17 04:00 04/03/17 04:00 Laboratory Results 04/03/17 04:13 04/03/17 04:13 04/02/17 04/03/17 04/04/17 05:59 05:59 05:59 Intake Total 1340 1600 Output Total 1650 2700 Balance -310 -1100 PT 18.6 SEC (12.0-15.0) H 04/03/17 04:13 INR 1.54 (0.83-1.16) H 04/03/17 04:13 Stable HR, rhythm and BP. Improved diuresis on IV lasix 40mg. Excellent sats on min suppl O2. CXR -> inc patchy perihilar infiltrates bilat, small residual pl eff. Appropriate rise in H/H post 2u PRBC. Physical Exam - Physical Exam General Appearance: alert, no apparent distress Respiratory: rhonchi (scattered), wheezing (left side) Cardiac/Chest: regular rate, rhythm, other (Sternotomy CDI) Abdomen: non-tender, soft Skin: warm/dry Extremities: swelling (1+ dependent) ICD10 Worksheet Patient Problems: Problems Problem Status Onset Bioprosthetic mitral valve replacement, current hospitalization Acute S/P AVR (aortic valve replacement) Acute S/P ablation operation for arrhythmia Acute Atrial fibrillation Acute Complete heart block, post-surgical Acute Expressive aphasia Acute Severe mitral regurgitation Acute Status post mitral valve repair Acute Status post placement of cardiac pacemaker Acute Status post tricuspid valve repair Acute Tachyarrhythmia Acute Tricuspid valve regurgitation, secondary Acute Chronic back pain Chronic Chronic narcotic dependence Chronic Hypothyroidism Chronic
[2017-04-03] MEDS: PANTOPRAZOLE SODIUM 40 MG TAB PO SCH (08:28)
[2017-04-03] MEDS: morphINE SR 15 MG TAB PO SCH ×2 (08:28→20:43)
[2017-04-03] MEDS: CARBOXYMETHYLCELLULOSE 0.5% 0.4 ML DROPERETTE EACHEYE SCH ×2 (08:28→20:46)
[2017-04-03] MEDS: FERROUS SULFATE 325 MG TAB PO SCH ×2 (08:28→20:42)
[2017-04-03] MEDS: ASPIRIN 81 MG CHEWABLE TAB PO SCH (08:28)
[2017-04-03] MEDS ORDERED: FUROSEMIDE 20 MG/2 ML VIAL IVP ONE (09:00)
[2017-04-03] MEDS ORDERED: POTASSIUM CL 20 MEQ TAB PO ONE ×2 (09:00→11:15)
[2017-04-03] MEDS ORDERED: FUROSEMIDE 100 MG/10 ML VIAL IVP ONE (10:39)
--- NOTE | 2017-04-03 11:23 | ECHO ---
[email or web address] [address] [address] Main: [phone] Fax: Transthoracic Echocardiogram Name: KESHAWN WALDRON MR#: [id number] Study Date: 04/03/2017 Study Time: 09:48 AM Date of : 1945 Age: 71 year(s) Height: 177.8 cm (70 in.) Weight: 82.55 kg (182 lb.) BSA: 2.01 m2 Gender: Male Examination: Limited Echo Indication: Decompensated CHF, Post AVR, Mitral Valve Regurgitation, Compare to previous exam 2 days ago. Image Quality: Contrast: Requested by: Yumiko John BP: 101 mmHg/60 mmHg Heart Rate: Rhythm: Pacemaker rhythm Indication: Decompensated CHF, Post AVR, Mitral Valve Regurgitation, Compare to previous exam 2 days ago. Procedure Staff Stock Chaser: Parrish Gao Reading Physician: Bjorn Hickey Requesting Provider: Conclusions: Normal size left ventricle. Normal global systolic LV function. EF is 63 %. There is a pacemaker lead noted in the right ventricle. Images of the RV are now improved compared to the previous exam of 04/01/17. The RV function is hypokinetic and is moderately to severly decreased at the apical region. Measurements: Chambers Valvular Assessment AV/MV Valvular Assessment TV/PV Normal Normal Normal Name Value Range Name Value Range Name Value Range IVSd (2D): 0.9 cm (0.6 cm-1.1 cm) LVDd (2D): 4.8 cm (4.2 cm-5.9 cm) LVDs (2D): 3.1 cm (2.1 cm-4 cm) LVPWd (2D): 1.1 cm (0.6 cm-1 cm) LVEF (MOD4): 63 % (>=55 %) Continued Measurements: Findings: Left Ventricle: Normal size left ventricle. Normal global systolic LV function. EF is 63 %. Right Ventricle: There is a pacemaker lead noted in the right ventricle. Images of the RV are now improved Patient: KESHAWN WALDRON Study Date: 04/03/2017 Page 1 of 2 09:48 AM compared to the previous exam of 04/01/17. The RV function is hypokinetic and is moderately to severly decreased at the apical region. (No Signature Object) Patient: KESHAWN WALDRON Study Date: 04/03/2017 Page 2 of 2 09:48 AM [id number]
[2017-04-03] MEDS ORDERED: WARFARIN SODIUM 5 MG TAB PO ONE (16:00)
[2017-04-03] MEDS: ESCITALOPRAM OXALATE 10 MG TAB PO SCH (20:40)
[2017-04-03] MEDS: SENNOSIDES/DOCUSATE SODIUM TAB PO PRN (20:42)
[2017-04-03] MEDS: AMITRIPTYLINE HCL 25 MG TAB PO SCH (20:44)
[2017-04-03] MEDS: MELATONIN 3 MG TAB PO SCH (20:44)
[2017-04-04 05:17] LABS: HEMATOCRIT 25.8 % (40.0-51.0); HEMOGLOBIN 8.5 g/dL (13.7-17.5)
[2017-04-04 05:20] LABS: POTASSIUM 4.1 mEq/L (3.5-5.2)
[2017-04-04 05:29] LABS: INR 1.57 (0.83-1.16); PROTIME(PATIENT) 18.9 SEC (12.0-15.0)
[2017-04-04] MEDS: LEVOTHYROXINE 100 MCG TAB PO SCH (06:14)
[2017-04-04] MEDS: NAPROXEN SODIUM 220 MG TAB PO SCH ×3 (06:14→22:21)
[2017-04-04] MEDS: ACETAMINOPHEN 325 MG TAB PO PRN (06:21)
--- NOTE | 2017-04-04 07:05 | SOAPPROG ---
SOAP Progress Note Assessment/Plan: POD #8: redo sternotomy, explant mitral annuloplasty ring, MVR with #25 Magna bioprosthesis, AVR with #23 Magna bioprosthesis, Negro-Maze IV Severe MR with failed MV repair s/p MVR with bioprosthetic valve - Coumadin as per PAF. Moderate AI s/p AVR - stable. Paroxysmal atrial fib/flutter - s/p CM4. Thromboprophylaxis with Coumadin, INR goal 2-3, duration dependent on rhythm. Acute on chronic diastolic class III CHF with post-op RV dysfunction - Continue diuresis. REJI/ARB avoided d/t low BP. Acute blood loss anemia with thrombocytopenia - Another unit of red cells ordered today for low HCT and hypotension. Chronic back pain with opioid dependence - pain controlled with modified home regimen. Disposition - Plan for discharge this weekend, SNF vs home with services. DVT prophylaxis - Continue Coumadin/SCDs Subjective: Stronger today. Good appetite. Breathing non-labored on room air. Objective: Vital Signs Temp Pulse Resp BP Pulse Ox 36.6 C 70 19 97/56 L 99 04/04/17 04:00 04/04/17 04:00 04/04/17 04:00 04/04/17 04:00 04/04/17 04:00 Laboratory Results 04/04/17 04:19 04/04/17 04:19 04/03/17 04/04/17 04/05/17 05:59 05:59 05:59 Intake Total 1600 1750 Output Total 2700 2850 Balance -1100 -1100 PT 18.9 SEC (12.0-15.0) H 04/04/17 04:19 INR 1.57 (0.83-1.16) H 04/04/17 04:19 Physical Exam - Physical Exam General Appearance: WD/WN, alert, no apparent distress EENT: No scleral icterus (R), No scleral icterus (L) Neck: normal inspection Respiratory: No respiratory distress Cardiac/Chest: other (paced) Abdomen: non-tender, soft, No distended Skin: normal color, warm/dry Extremities: pedal edema Neuro/Psych: no motor/sensory deficits, alert, normal mood/affect, oriented x 3 ICD10 Worksheet Patient Problems: Problems Problem Status Onset Bioprosthetic mitral valve replacement, current hospitalization Acute S/P AVR (aortic valve replacement) Acute S/P ablation operation for arrhythmia Acute Atrial fibrillation Acute Complete heart block, post-surgical Acute Expressive aphasia Acute Severe mitral regurgitation Acute Status post mitral valve repair Acute Status post placement of cardiac pacemaker Acute Status post tricuspid valve repair Acute Tachyarrhythmia Acute Tricuspid valve regurgitation, secondary Acute Chronic back pain Chronic Chronic narcotic dependence Chronic Hypothyroidism Chronic
[2017-04-04] MEDS ORDERED: FUROSEMIDE 100 MG/10 ML VIAL IVP ONE (08:54)
[2017-04-04] MEDS ORDERED: POTASSIUM CL 20 MEQ TAB PO ONE (08:55)
[2017-04-04] MEDS: morphINE SR 15 MG TAB PO SCH ×2 (09:13→20:17)
[2017-04-04] MEDS: CARBOXYMETHYLCELLULOSE 0.5% 0.4 ML DROPERETTE EACHEYE SCH ×2 (09:13→20:17)
[2017-04-04] MEDS: FERROUS SULFATE 325 MG TAB PO SCH ×2 (09:13→20:17)
[2017-04-04] MEDS: PANTOPRAZOLE SODIUM 40 MG TAB PO SCH (09:13)
[2017-04-04] MEDS: SENNOSIDES/DOCUSATE SODIUM TAB PO PRN (09:13)
[2017-04-04] MEDS: ASPIRIN 81 MG CHEWABLE TAB PO SCH (09:13)
[2017-04-04] MEDS: traMADol 50 MG TAB PO PRN (10:34)
[2017-04-04] MEDS: MAGNESIUM HYDROXIDE 30 ML UDCUP PO PRN (12:00)
[2017-04-04] MEDS ORDERED: WARFARIN SODIUM 5 MG TAB PO ONE (16:00)
[2017-04-04] MEDS: TORSEMIDE 20 MG TAB PO SCH (16:19)
[2017-04-04] MEDS: POTASSIUM CL 20 MEQ TAB PO SCH (16:20)
[2017-04-04 18:00] LABS: POTASSIUM 4.1 mEq/L (3.5-5.2)
[2017-04-04] MEDS: ESCITALOPRAM OXALATE 10 MG TAB PO SCH (20:16)
[2017-04-04] MEDS: AMITRIPTYLINE HCL 25 MG TAB PO SCH (20:17)
[2017-04-04] MEDS: MELATONIN 3 MG TAB PO SCH (20:17)
[2017-04-05] MEDS: traMADol 50 MG TAB PO PRN ×5 (03:13→21:07)
[2017-04-05 04:29] LABS: HEMATOCRIT 32.5 % (40.0-51.0)
[2017-04-05 04:38] LABS: POTASSIUM 4.3 mEq/L (3.5-5.2)
[2017-04-05 05:03] LABS: INR 1.57 (0.83-1.16); PROTIME(PATIENT) 18.9 SEC (12.0-15.0)
[2017-04-05] MEDS: LEVOTHYROXINE 100 MCG TAB PO SCH (05:34)
[2017-04-05] MEDS: NAPROXEN SODIUM 220 MG TAB PO SCH ×3 (05:34→21:06)
[2017-04-05] MEDS: TORSEMIDE 20 MG TAB PO SCH ×2 (08:07→15:27)
[2017-04-05] MEDS: morphINE SR 15 MG TAB PO SCH ×2 (08:07→21:07)
[2017-04-05] MEDS: POTASSIUM CL 20 MEQ TAB PO SCH ×2 (08:08→15:27)
[2017-04-05] MEDS: CARBOXYMETHYLCELLULOSE 0.5% 0.4 ML DROPERETTE EACHEYE SCH ×2 (08:08→21:08)
[2017-04-05] MEDS: FERROUS SULFATE 325 MG TAB PO SCH ×2 (08:08→21:06)
[2017-04-05] MEDS: PANTOPRAZOLE SODIUM 40 MG TAB PO SCH (08:08)
[2017-04-05] MEDS: ASPIRIN 81 MG CHEWABLE TAB PO SCH (08:08)
--- NOTE | 2017-04-05 08:16 | SOAPPROG ---
SOAP Progress Note Assessment/Plan: Assessment: POD#9 Redo sternotomy, explant mitral annuloplasty ring, MVR with # 25 Magna bioprosthesis, AVR with #23 Magna bioprosthesis, Negro-Maze IV Severe MR/failed mitral repair - s/p tissue MVR. Tubes and wires out. Antithrombotic prophylaxis with Coumadin - parameters as per PAF. Moderate AI - s/p tissue AVR. Mgmt as per MVR Presence of permanent pacemaker with paroxysmal atrial fib/flutter - s/p CM4. Predominant postop rhythm AV paced. Thromboprophylaxis with Coumadin, INR goal 2 -3, duration dependent on rhythm. AF prophylaxis with BB as allowed by BP. Acute on chronic dCHF, class III - Transient pressor support with dopamine. Fluid resuscitation complicated by pulm edema and RVSD. Diuresis intensified with good effect. Precautionary LE US neg for DVT. Staggered reintro of HF meds as allowed by BP and stability of renal fx. Acute expected blood loss anemia with coagulopathy - Stable. 3u PRBC for relative hypotension with relatively low HCT. Precautionary HIT neg. Platelet rebound noted. Started on 2 wk course Fe suppl. Acute on chronic pain (back) with opioid dependence - Controlled with modified home regimen. Plan: Cont demadex 40mg/KCl 20meq BID Cont coumadin 5 mg daily. Cont aggressive pulm toilet. Wean O2. Dispo - Home w [facility] tomorrow. 04/05/17 08:11 Subjective: Feels well. Tolerating light activity with relative ease. Walking independently. Good appetite. Adequate analgesia. Looking forward to home soon. Objective: Vital Signs Temp Pulse Resp BP Pulse Ox 36.4 C 70 18 116/78 95 04/05/17 07:46 04/05/17 07:46 04/05/17 07:46 04/05/17 07:46 04/05/17 07:46 Laboratory Results 04/05/17 04:13 04/05/17 04:13 04/04/17 04/05/17 04/06/17 05:59 05:59 05:59 Intake Total 1750 1540 Output Total 2850 4900 100 Balance -1100 -3360 -100 PT 18.9 SEC (12.0-15.0) H 04/05/17 04:13 INR 1.57 (0.83-1.16) H 04/05/17 04:13 Predom Vpaced. SBPs 90s-110s with aggressive diuresis. Now within 1 kg admit wt. Min suppl O2 req. CXR-> decr perihilar infiltrates, tiny residual bilat pl eff. Labs ok. - Pending Discharge Pending Discharge Within 24 Hours: Yes Pending Discharge Date: 04/06/17 Pending Discharge Time: 11:00 Physical Exam - Physical Exam General Appearance: alert, no apparent distress Respiratory: normal breath sounds Cardiac/Chest: regular rate, rhythm, other (Sternum grossly stable. Sternotomy CDI.) Abdomen: non-tender, soft Skin: warm/dry Extremities: swelling (trace perimalleolar) ICD10 Worksheet Patient Problems: Problems Problem Status Onset Bioprosthetic mitral valve replacement, current hospitalization Acute S/P AVR (aortic valve replacement) Acute S/P ablation operation for arrhythmia Acute Atrial fibrillation Acute Complete heart block, post-surgical Acute Expressive aphasia Acute Severe mitral regurgitation Acute Status post mitral valve repair Acute Status post placement of cardiac pacemaker Acute Status post tricuspid valve repair Acute Tachyarrhythmia Acute Tricuspid valve regurgitation, secondary Acute Chronic back pain Chronic Chronic narcotic dependence Chronic Hypothyroidism Chronic
[2017-04-05] MEDS ORDERED: WARFARIN SODIUM 5 MG TAB PO ONE (16:00)
[2017-04-05] MEDS: MAGNESIUM HYDROXIDE 30 ML UDCUP PO PRN (16:38)
[2017-04-05] MEDS: SENNOSIDES/DOCUSATE SODIUM TAB PO PRN (16:39)
[2017-04-05] MEDS: ESCITALOPRAM OXALATE 10 MG TAB PO SCH (21:08)
[2017-04-05] MEDS: MELATONIN 3 MG TAB PO SCH (21:08)
[2017-04-05] MEDS: AMITRIPTYLINE HCL 25 MG TAB PO SCH (21:08)
[2017-04-06 04:04] LABS: INR 1.49 (0.83-1.16); PROTIME(PATIENT) 18.2 SEC (12.0-15.0)
[2017-04-06 04:28] LABS: ANION GAP 7 mEq/L (8-16); CALCIUM 8.2 mg/dL (8.5-10.4); CARBON DIOXIDE 32 mEq/l (22-31); CHLORIDE 100 mEq/L (97-110); GLOMERULAR FILTRATION RATE > 60; GLUCOSE 98 mg/dL (70-100); POTASSIUM 4.2 mEq/L (3.5-5.2); SODIUM 139 mEq/L (134-144)
[2017-04-06] MEDS: traMADol 50 MG TAB PO PRN (05:26)
[2017-04-06] MEDS: LEVOTHYROXINE 100 MCG TAB PO SCH (05:27)
[2017-04-06] MEDS: NAPROXEN SODIUM 220 MG TAB PO SCH ×2 (05:27→13:26)
[2017-04-06] MEDS: CARBOXYMETHYLCELLULOSE 0.5% 0.4 ML DROPERETTE EACHEYE SCH (05:34)
[2017-04-06 08:31] VITALS: PULSE 70; TEMP 97.5
[2017-04-06] MEDS: ASPIRIN 81 MG CHEWABLE TAB PO SCH (08:49)
[2017-04-06] MEDS: TORSEMIDE 20 MG TAB PO SCH (08:49)
[2017-04-06] MEDS: morphINE SR 15 MG TAB PO SCH (08:49)
[2017-04-06] MEDS: POTASSIUM CL 20 MEQ TAB PO SCH (08:50)
[2017-04-06] MEDS: PANTOPRAZOLE SODIUM 40 MG TAB PO SCH (08:50)
[2017-04-06] MEDS: FERROUS SULFATE 325 MG TAB PO SCH (08:50)
[2017-04-06 09:02] VITALS: BP 110/73
[2017-04-06 09:03] VITALS: RESP 20; O2SAT 100
--- NOTE | 2017-04-06 09:17 | SOAPPROG ---
SOAP Progress Note Assessment/Plan: Assessment: POD#10 Redo sternotomy, explant mitral annuloplasty ring, MVR with # 25 Magna bioprosthesis, AVR with #23 Magna bioprosthesis, Negro-Maze IV Severe MR/failed mitral repair - s/p tissue MVR. Tubes and wires out. Antithrombotic prophylaxis with Coumadin - parameters as per PAF. Moderate AI - s/p tissue AVR. Mgmt as per MVR Presence of permanent pacemaker with paroxysmal atrial fib/flutter - s/p CM4. Predominant postop rhythm AV paced. Thromboprophylaxis with Coumadin, INR goal 2 -3, duration dependent on rhythm. Bridge therapy not felt to be necessary as SIDNEY excluded. AF prophylaxis with BB as allowed by BP. Acute on chronic dCHF, class III - Transient pressor support with dopamine. Fluid resuscitation complicated by pulm edema and RVSD. Diuresis intensified with good effect. Precautionary LE US neg for DVT. Staggered reintro of HF meds as allowed by BP and stability of renal fx. Acute expected blood loss anemia with coagulopathy - Stable. 3u PRBC for relative hypotension with low HCT. Precautionary HIT neg. Platelet rebound noted. Course of Fe suppl completed. Acute on chronic pain (back) with opioid dependence - Controlled with modified home regimen. Plan: Increase coumadin to 7.5 mg daily. Ok for home w [facility] tomorrow. Instructions re diet, meds, wound care, activity and f/u to be reviewed in presence of . 04/06/17 09:15 Subjective: Feels well. No acute concerns. Eager for home. Objective: Vital Signs Temp Pulse Resp BP Pulse Ox 36.4 C 70 20 110/73 100 04/06/17 08:00 04/06/17 08:58 04/06/17 08:58 04/06/17 08:58 04/06/17 08:58 Laboratory Results 04/05/17 04:13 04/06/17 03:41 04/05/17 04/06/17 04/07/17 05:59 05:59 05:59 Intake Total 1540 1600 Output Total 4900 3750 Balance -3360 -2150 PT 18.2 SEC (12.0-15.0) H 04/06/17 03:41 INR 1.49 (0.83-1.16) H 04/06/17 03:41 Cardioresp status stable. Borderline suppl O2 req. Excellent fluid balance, within 3 lbs of baseline wt. Plateau in INR, likely reflects decr hepatic congestion and improved fx. Physical Exam - Physical Exam General Appearance: alert, no apparent distress Respiratory: normal breath sounds Cardiac/Chest: regular rate, rhythm, other (Sternotomy and CT sites CDI) Abdomen: non-tender, soft Skin: warm/dry Extremities: other (no visible dependent edema) ICD10 Worksheet Patient Problems: Problems Problem Status Onset Bioprosthetic mitral valve replacement, current hospitalization Acute S/P AVR (aortic valve replacement) Acute S/P ablation operation for arrhythmia Acute Atrial fibrillation Acute Complete heart block, post-surgical Acute Expressive aphasia Acute Severe mitral regurgitation Acute Status post mitral valve repair Acute Status post placement of cardiac pacemaker Acute Status post tricuspid valve repair Acute Tachyarrhythmia Acute Tricuspid valve regurgitation, secondary Acute Chronic back pain Chronic Chronic narcotic dependence Chronic Hypothyroidism Chronic
--- NOTE | 2017-04-06 09:17 | PDHOMEO2F ---
Home Oxygen Face to Face Home Orders: I certify that a physician or a nurse practitioner or physician's assistant superintendent has had a [id number] encounter with this patient on the date of this order due to the diagnosis listed, which relates to the primary reason the patient requires home oxygen. Alternative treatments have been tried, or considered, and deemed ineffective. It is anticipated that supplemental oxygen will result in improvement with treatment. Home oxygen qualifying diagnosis: chronic diastolic CHF SpO2 on room air (%): 86 Frequency of home oxygen needed: continuous Home oxygen liters per minute: 1 Home oxygen delivery device: nasal cannula, other (humidifier if possible) Concentrator: Yes E-tanks for mobility and back up: Yes If ordering portable O2, is the patient mobile in the home?: Yes I certify that, based on these findings, the home oxygen is medically necessary for this patient for the following length of time. Length of time home oxygen needed: 1 month
--- NOTE | 2017-04-06 11:19 | PDIAF ---
- Diagnosis Diagnosis: s/p redo MVR, AVR, AF ablation; chronic PAF & dCHF;perm pacer; chronic pain Code Status: Full Code - Medication Management Discharge Medications: Medications to Continue on Transfer Melatonin [Melatonin 3 MG (*)] 3 mg PO HS 04/15/15 [Last Taken 03/25/17] morphINE SR [Ms Contin/Oramorph 15 mg (*)] 15 mg PO BID 06/12/15 [Last Taken 08:00] Levothyroxine [Synthroid 100 mcg (*)] 100 mcg PO DAILY06 03/28/16 [Last Taken 06:00] Amitriptyline HCl [Elavil] 25 mg PO HS #10 tab 03/29/16 [Last Taken 03/25/17] Herbals/Supplements -Info Only 1 ea PO DAILY 01/03/17 [Last Taken 03/21/17] Multivitamins [Multivitamin (*)] 1 each PO DAILY 01/03/17 [Last Taken 03/21/17] Ibuprofen [Motrin (*)] 400 mg PO DAILY PRN 01/29/17 [Last Taken Unknown] Escitalopram Oxalate [Lexapro] 20 mg PO HS 03/11/17 [Last Taken 03/25/17] Magnesium Oxide [Magnesium Oxide 400 mg (*)] 400 mg PO DAILY 03/11/17 [Last Taken 03/21/17] Propylene Glycol/Peg 400/Pf [Systane 0.3-0.4% Eye Drops] 1 drop EACHEYE BID [Last Taken 03/26/17 08:00] Pyridoxine HCl [Vitamin B-6 100 mg (*)] 400 mg PO DAILY 03/11/17 [Last Taken ] Acetaminophen [Tylenol 325mg (*)] 325 - 650 mg PO Q4HRS PRN tab 04/06/17 [Last Taken Unknown] Aspirin [Aspirin 81mg (*)] 81 mg PO DAILY tab.chew 04/06/17 [Last Taken Unknown ] Potassium Cl [Klor-Con 20 meq (*)] 20 meq PO BIDDIUR #60 tab 04/06/17 [Last Taken Unknown] Torsemide [Demadex] 40 mg PO BIDDIUR #120 tab 04/06/17 [Last Taken Unknown] Warfarin Sodium [Coumadin 5MG (*)] 5 mg PO DAILY16 #90 tab 04/06/17 [Last Taken Unknown] traMADol [Ultram 50 mg (*)] 50 mg PO Q4HRS PRN #50 tab 04/06/17 [Last Taken Unknown] Discharge Medications: Refer to the Discharge Home Medication list for PRN reason. PICC Care - Routine: N/A - Orders Services needed: Home Care, Registered Nurse (cardiorespiratory and therapeutic drug monitoring; daily visits x 3 days, then 3x weekly), Physical Therapy (3x weekly until enrolled in outpt cardiac rehab) Home Care Face to Face: I certify that this patient was under my care and that I had the required [id number] encounter meeting the encounter requirements on the discharge day. My findings support the fact that the patient is homebound as defined in Home Care Face to Face Continued: [facility] Chapter 7 Medicare Benefits Manual 30.1.1 , The condition of the patient is such that there exists a normal inability to leave home and consequently, leaving home would require a considerable and taxing effort. Isolation Type: None Oxygen: 1 Lpm continuously or as directed by SpO2 (target >89%) Diet Recommendation: no restrictions on diet, fluid restriction (use comment for amount) (1800 ml daily until off torsemide) Diet Texture: Regular Texture Diet Weigh Patient: daily Wound Care Instructions: daily soap and water. ok to leave all wounds open to air. avoid underwater immersion (ie. baths) until scabs off. avoid ointments until scabs off Activity/Weight Bearing Restrictions: sternal precautions x 3 more weeks. avoid lifting > 10 lbs with an outstretched arm. avoid push pull activities Additional: Call [facility] (Simon Murcia) for coumadin instructions/ timing of lab draws. Call as well for resting HR > 120, SBP < 90 or > 160, suppl O2 requirement > 3 Lpm, overnight weight gain > 2 lbs, absolute weight gain > 5 lbs, or any wound concerns - Labs/Radiology BMP Date: 04/09/17 CBC w/diff Date: 04/09/17 (without diff preferred) PT/INR Date: 04/09/17 Imaging Orders: CXR prior to surgical appointment Call or Fax Lab and Imaging Results to: Dr Simon Jiménez - Follow Up Care Current Providers and Referrals: Kwan Evans MD [Primary Care Provider] - Claus Cerda DO [Doctor of Osteopathy] - 04/11/17 10:30 am
--- NOTE | 2017-04-06 12:13 | ASDISCHSUM ---
Discharge Information Plan Status:Home with Home Health Medically Cleared to Leave:04/05/2017 Discharge Date:04/05/2017 CM D/C Disposition:Home Health Service ADT D/C Disposition:Home Health Service Projected Discharge Date:04/07/2017 11:00 AM Transportation at D/C:Family Discharge Delay Reason: Follow-Up Date:04/07/2017 11:00 AM Discharge Slot: Final Diagnosis: Placement Information Referral Type:*Home Health Care Services Referral ID:[id number] Provider Name:[facility] Address 1:[address] [facility] [address] Address 2: City:[place] Selection Factors: State:[place] Patient Contact Information Contact Name:LIONEL Relationship: Address:[address] City:[place] Alternate Phone: State/Zip Code:[place] [address] Email: Financial Information Financial Class: Primary Plan Desc:MEDICARE INPATIENT Primary Plan Number:[id number] Secondary Plan Desc:[employer]/MDR SUPPLEMENT Secondary Plan Number:[id number] Assessment Information [facility] Initial CM Assessment Living Arrangements What is your living Answers: With Spouse arrangement? Who do you live with? Type Of Residence What kind of residence do Answers: House you live in? Discharge Plan Comments Coordination Status Comments Notes: Patient is a 71yo male who was admitted for MVR, possible AVR. OT/PT ordered. D/C needs TBD. CM will follow. Date Signed: 03/28/2017 12:47 PM Electronically Signed By:Giovanna Lau LCSW [facility] CM Progress Note CM Note CM Note Notes: OT is recommending home independent. PT recommendations are TBD. Anticipates that pt will most likely d/c independent w/ cardiac rehab. CM available for d/c needs. Plan: Independent Date Signed: 03/29/2017 02:57 PM Electronically Signed By:BOGDAN Barton [facility] CM Progress Note CM Note CM Note Notes: Met with patient and to discuss discharge planning - per Dr Cerda's note, patient will need SNF or HHC. Patient and want to go home with home care. Have used [facility] in the past. They feel they will have adequate support to manage at home with home care. Yokasta at [facility] notified that RN/PT/OT will be ordered upon discharge. Current Case Management plan: home with [facility] RN/PT/OT Date Signed: 04/01/2017 01:34 PM Electronically Signed By:Georgia Bhatti RN Intervention Information Intervention Type:*Incorrect Registration Date of Service:03/27/2017 11:24 AM Patient Type:Observation Staff Member:OCTAVIO Dia, Marla Hours: Discipline: Severity: Comment:
--- NOTE | 2017-04-06 15:41 | PDDCSUM ---
Discharge Summary Discharge Summary: DATE OF ADMISSION: 03/26/17 DATE OF DISCHARGE: 04/06/17 DISPOSITION: Home with home healthcare, RN and PT PRINCIPAL ADMISSION DIAGNOSES: 1. Recurrent severe mitral valve regurgitation 2. Moderate aortic valve regurgitation 3. Paroxysmal atrial fibrillation/flutter 4. Chronic anticoagulation PRINCIPAL DISCHARGE DIAGNOSES: 1. Coronary artery disease excluded 2. Status post explant of old mitral ring and implant of bioprosthetic mitral valve 3. Status post aortic valve replacement with a bioprosthesis 4. Status post Negro Maze IV ablation of atrial fibrillation utilizing bipolar radiofrequency and cryothermy 5. Acute expected blood loss anemia with coagulopathy 6. Acute on chronic diastolic congestive heart failure HISTORY OF PRESENT ILLNESS: 71 yo male with failed MV repair, new mild-mod AI, increased frequency of atrial tachyarrhythmias, and class II diastolic CHF on medical therapy, admitted in advance of redo cardiac surgery to complete risk stratification. PERTINENT PAST MEDICAL HISTORY: 1. 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 Sick sinus syndrome s/p prophylactic ligation of the left atrial appendage and dual chamber Biotronik pacemaker 04/18/15 3. Degenerative disc disease with scoliosis, chronic upper back pain, opioid dependence and depression 4. Remote right thoracotomy for decortication of empyema after strep pneumonia MEDICATIONS ON ADMISSION: Morphine SR 15 mg BID; Oxycodone IR 5 mg qam, 5 mg qpm and 10 mg daily at noon; Synthroid 100 mcg daily; Melatonin 3 mg hs; Amitriptyline 25 mg hs; Lexapro 20 mg hs; Irbesartan 75 mg daily; Eliquis 5 mg BID (stopped 03/21); Lovenox 80 mg BID (stopped 03/25); MVI once daily; Magnesium oxide 400 mg daily; Vit B6 400 mg daily; Systane eye drops 1 gtt each eye BID; Ibuprofen 400 mg daily prn ALLERGIES/SENSITIVITIES: ceftriaxone causing toxic hepatitis, sulfa causing profound malaise, and cyclobenzaprine causing itching CONSULTANTS: Cardiology (Nayeli) PROCEDURES/IMAGIN/28 (Nayeli): Right and left heart catheterization with selective coronary angiography and left ventriculogram. Access via rt femoral vessels. Findings: Rt dominant circulation. Angiographically nl coros. LVEF 60%. LVEDP 6. RV mean 7. 03/27 (Zaida): Redo median sternotomy. Takedown pericardial adhesions. Explant old mitral annuloplasty ring. Implant 25mm Duarte Magna bovine pericardial mitral valve. Aortic valve replacement with a 23mm Duarte Magna bovine pericardial bioprosthesis. Negro-Maze IV procedure utilizing bipolar radiofrequency and cryothermy. 04/01 (Ruperto): Transthoracic echocardiogram: Nl BiV size and systolic fx. LVEF 64%. Nl sized atria. Nl functioning bioprosthetic valves. No pericardial effusion. 04/03 (Hickey): Limited transthoracic echocardiogram: New RVSD. 04/04 Lower extremity venous ultrasound: neg for DVT ABBREVIATED HOSPITAL COURSE BY ACTIVE PROBLEM LIST: 1. Severe MR/failed mitral repair - s/p tissue MVR. Antithrombotic prophylaxis with baby ASA and Coumadin. Target INR as per PAF. 2. Moderate AI - s/p tissue AVR. Antithrombotic prophylaxis as per MVR. 3. Presence of permanent pacemaker with paroxysmal atrial fib/flutter - s/p CM4. Predominant postop rhythm AV paced. Thromboprophylaxis with Coumadin, INR goal 2-3, duration dependent on rhythm. Lovenox bridge not felt to be necessary as no postop dysrhythmias evident. Insufficient BP for BB. 4. Acute on chronic dCHF, class III - Transient pressor support with dopamine. Fluid resuscitation complicated by pulm edema and RVSD. Precautionary LE US neg for DVT. Diuresis intensified with good effect. Insufficient BP for ARB. 5. Acute expected blood loss anemia with coagulopathy - Stable s/p 3u PRBC. Precautionary HIT neg. Platelet rebound noted. 1 week course of Fe suppl completed. 6. Acute on chronic pain with opioid dependence - Controlled with modified home regimen. DISCHARGE CLINICAL INFORMATION: Sternum grossly stable. Sternotomy CDI, sutured, +Dermabond. HR 70, paced. SBP 90s-110s. SpO2 86% RA, >91% on 1 Lpm O2. Wt 1.1 kg above admission at 78.1 kilos. Hgb 11, HCT 32.5, Plt 120, Na 139, K 4.2, BUN 32, Cr 1.0 Coumadin flow sheet: Date INR mg 03/30 1.24 5 03/31 1.3 5 04/01 1.41 5 04/02 1.49 5 04/03 1.54 5 04/04 1.57 5 04/05 1.57 5 04/06 1.49 7.5 DISCHARGE MEDICATIONS: As on admission with the following adjustments: 1. Continue to hold Lovenox 2. Continue to hold Eliquis 3. Hold Irbesartan 4. Skipwith oxycodone IR 5 mg TID for severe breakthrough discomfort NEW prescriptions: 1. ASA 81 mg daily. Hold for INR > 3. 2. Coumadin 5 mg 1.5 tabs daily or as directed by INR. 3. Demadex 40 mg BID. 4. KlorCon 20 meq BID with Demadex. 5. Tramadol 50 mg q4h prn moderate incisional discomfort. 6. Oxygen @ 1 Lpm continuously or as directed by SpO2. FOLLOW UP APPOINTMENTS: 1. CV surgery: with Dr Cerda at [facility] on 04/11 at 10:30am. 2. Cardiology: with Dr Faith or Dr Tyler at [facility] within 4-6 weeks. Appointment to be established during surgical visit. FOLLOW UP TESTING: CBC, BMP and INR on 04/09. Results to [facility]. CXR prior to surgical appointment.
[2017-04-06] MEDS ORDERED: WARFARIN SODIUM 7.5 MG TAB PO ONE (16:00)
== END 2017-04-06 14:30 | disposition home health service (06) | DRG 216 ==
LOC: FCATH 11:16 → F2W 15:40 → OBSVTOIN 15:40 → F2N 03-27 07:50 → F2W 03-28 15:10
PROVIDERS: ADMIT Internal Medicine Cardiovascular Disease; ATTEND Thoracic Surgery (Cardiothoracic Vascular Surgery)
PROC: B2151ZZ Fluoroscopy of Left Heart using Low Osmolar Contrast (ICD-10-PCS; 2017-03-26)
PROC: 4A023N8 Measurement of Cardiac Sampling and Pressure, Bilateral, Percutaneous Approach (ICD-10-PCS; 2017-03-26)
PROC: B2111ZZ Fluoroscopy of Multiple Coronary Arteries using Low Osmolar Contrast (ICD-10-PCS; 2017-03-26)
PROC: 02RF08Z Replacement of Aortic Valve with Zooplastic Tissue, Open Approach (ICD-10-PCS; principal; 2017-03-27 08:30)
PROC: 02P Heart and Great Vessels, Removal (ICD-10-PCS; principal; 2017-03-27 08:30)
PROC: 02L70ZK Occlusion of Left Atrial Appendage, Open Approach (ICD-10-PCS; principal; 2017-03-27 08:30)
PROC: 02580ZZ Destruction of Conduction Mechanism, Open Approach (ICD-10-PCS; principal; 2017-03-27 08:30)
PROC: 02RG08Z Replacement of Mitral Valve with Zooplastic Tissue, Open Approach (ICD-10-PCS; principal; 2017-03-27 08:30)
PROC: 5A1221Z Performance of Cardiac Output, Continuous (ICD-10-PCS; principal; 2017-03-27 08:30)
DX: I08.0 Rheumatic disorders of both mitral and aortic valves (principal); I48.0 Paroxysmal atrial fibrillation; I50.33 Acute on chronic diastolic (congestive) heart failure; D62 Acute posthemorrhagic anemia; F11.20 Opioid dependence, uncomplicated; G89.29 Other chronic pain; M54.6 Pain in thoracic spine; F32.9 Major depressive disorder, single episode, unspecified; M41.9 Scoliosis, unspecified; Z79.01 Long term (current) use of anticoagulants; Z95.0 Presence of cardiac pacemaker
CPT/HCPCS: 82947-QW; 86022-90; 97116-GP; 97161-GP; 97165-GO; 97530-GO; 97530-GP; 97535-GO; C1760; G8978-GP-CJ; G8979-GP-CI; G8980-GP-CI; G8987-GO-CI; G8987-GO-CK; G8988-GO-CI; G8989-GO-CI; J0153; J0282; J0690; J1170; J1265; J1644; J1815; J1885; J1940; J2001; J2150; J2250; J2260; J2310; J2370; J2704; J2720; J2930; J3010; J3370; J7060; P9016; P9041; Q9967

== ENCOUNTER → 2017-04-11 | Outpatient (CLI) | payer OTHER, MEDICARE | LOC: FLAB 09:51 | PROVIDERS: ATTEND Thoracic Surgery (Cardiothoracic Vascular Surgery) | DX: Z95.2 Presence of prosthetic heart valve (principal); Z86.79 Personal history of other diseases of the circulatory system; Z98.890 Other specified postprocedural states; I50.9 Heart failure, unspecified; I27.20 Pulmonary hypertension, unspecified ==

== ENCOUNTER → 2017-04-16 | Outpatient (CLI) | payer OTHER, MEDICARE | LOC: FIMAGING 12:59 | PROVIDERS: ATTEND Thoracic Surgery (Cardiothoracic Vascular Surgery) | DX: Z95.2 Presence of prosthetic heart valve (principal); I50.9 Heart failure, unspecified; J90 Pleural effusion, not elsewhere classified; Z86.79 Personal history of other diseases of the circulatory system; Z95.0 Presence of cardiac pacemaker; Z98.890 Other specified postprocedural states ==

== ENCOUNTER → 2017-06-21 | Outpatient (CLI) | payer OTHER, MEDICARE | LOC: BHFA 14:45 | PROVIDERS: ATTEND Internal Medicine | DX: Z95.2 Presence of prosthetic heart valve (principal) ==

== ENCOUNTER → 2017-07-08 | Outpatient (CLI) | payer OTHER, MEDICARE | LOC: BMCIMAGING 14:48 | PROVIDERS: ATTEND Podiatrist Foot & Ankle Surgery | DX: M19.071 Primary osteoarthritis, right ankle and foot (principal) ==

== ENCOUNTER 2017-09-12 09:15 | Inpatient (IN) | payer OTHER, MEDICARE ==
--- NOTE | 2017-09-11 17:18 | GHP ---
[f rep st] PREOP HISTORY AND PHYSICAL ADMISSION DIAGNOSIS: Adenocarcinoma of the prostate. HISTORY: This is a 71-year-old gentleman who has had an elevated PSA, and he has had a [place] score 6, prostate group 1, WHO group 1 as of 03/12/2017, placed him in the intermediate risk group favorab le, and options of treatment to be active surveillance, radiation, or surgery. At the present time, he has elected to undergo a robotic-assisted radical prostatectomy. His PSA preoperatively is 5.01 a s of 03/12/2017. He had a 4K score of 61 and a PSA density of 0.19 at the time of his biopsy. His p athology revealed Gene score 6 in 5 of the 6 sites that were biopsied, and these varied in amount of 50% to 70% of the cores being involved. He has had symptomatic BPH. PAST SURGICAL HISTORY: Heart valve surgery, lung, pacemaker, shoulder, and vasectomy, ultrasound wit h biopsy of the prostate. MEDICATIONS: Include amitriptyline, Eliquis, irbesartan, levothyroxine, Lexapro, oxycodone. ALLERGIES: Rocephin. FAMILY HISTORY: Multiple myeloma and breast cancer. SOCIAL HISTORY: Consumes alcohol daily. Nonsmoker. IMMUNIZATIONS: Up to date. REVIEW OF SYSTEMS: He notes he has an occasional headache. He also has some dyspnea with exertion, without chest pain, and he has constipation noted, nocturia related to his prostate obstruction. PHYSICAL EXAMINATION: VITAL SIGNS: Stable. CHEST: Clear. HEART: Regular rate and rhythm. ABDOM EN: Normal. No organomegaly, rebound or guarding. RECTAL: He has a nodule at the apex of his pros mcfarlane, and his prostate size was 33.5 g on the ultrasound from January 22, 2017. He had primarily a n apical lesion. PLAN: At the present time, he was admitted for robotic-assisted radical prostatectomy with bilateral pelvic lymph node dissection. The indications, complications, and options were outlined well. He a ppears to be well informed. He was admitted for the above procedure. /[id number]/MODL
[2017-09-12] MEDS ORDERED: LR 1,000 ML IV ONE (09:30)
[2017-09-12] MEDS ORDERED: BUPIVACAINE 0.5% 30 ML SDV ONE (09:57)
[2017-09-12 10:21] LABS: INR 1.14 (0.83-1.16); PROTIME(PATIENT) 14.8 SEC (12.0-15.0)
[2017-09-12 10:38] LABS: PLATELET COUNT 132 10^3/uL (150-400)
[2017-09-12] MEDS ORDERED: CLINDAMYCIN 900 MG/DEXTROSE 50 ML IV ONE (10:58)
[2017-09-12] MEDS ORDERED: PROPOFOL/EMULSION 500 MG/50 ML BOTTLE IV ONE (11:23)
[2017-09-12] MEDS ORDERED: fentaNYL 100 MCG/2 ML INJ ONE ×4 (11:23→14:59)
[2017-09-12] MEDS ORDERED: ALBUMIN 5% 250 ML BOTTLE IV ONE (11:28)
[2017-09-12] MEDS ORDERED: RANITIDINE 50 MG/2 ML VIAL ONE (11:52)
[2017-09-12] MEDS ORDERED: LIDOCAINE 2% 5 ML SDV ONE (11:52)
[2017-09-12] MEDS ORDERED: ROCURONIUM 100 MG/10 ML VIAL ONE (11:52)
[2017-09-12] MEDS ORDERED: LIDOCAINE HCL 160 MG/4 ML LTA KIT TP ONE (11:52)
[2017-09-12] MEDS ORDERED: ONDANSETRON 4 MG/2 ML VIAL ONE (11:52)
[2017-09-12] MEDS ORDERED: SUGAMMADEX SODIUM 200 MG/2 ML VIAL IVP ONE (11:52)
[2017-09-12] MEDS ORDERED: REMIFENTANIL HCL 1 MG VIAL ONE (12:00)
[2017-09-12] MEDS ORDERED: PROPOFOL 200 MG/20 ML VIAL ONE (12:01)
--- NOTE | 2017-09-12 12:06 | PDANEPAE ---
ANE Past Medical History - Cardiovascular History Hx Hypertension: No Hx Arrhythmias: Yes Hx Chest Pain: No Hx Coronary Artery / Peripheral Vascular Disease: No Hx CHF / Valvular Disease: No Hx Palpitations: No Cardiovascular History Comment: L BBB, MITRAL REGURGITATION and TRICUSPID valve regurg. NO SOB - Pulmonary History Hx COPD: No Hx Asthma/Reactive Airway Disease: No Hx Recent Upper Respiratory Infection: No Hx Oxygen in Use at Home: No Hx Sleep Apnea: No Sleep Apnea Screening Result - Last Documented: Positive Pulmonary History Comment: NIC - NO CPAP - Neurologic History Hx Cerebrovascular Accident: No Hx Seizures: No Hx Dementia: No Neurologic History Comment: DDD. SCOLIOSIS. Pain between shoulder blades, spine. Neck/occiput has occ pain. - Endocrine History Hx Diabetes: No Endocrine History Comment: hypothyroid - Renal History Hx Renal Disorders: Yes Renal History Comment: PROSTATE CA - Liver History Hx Hepatic Disorders: No - Neurological & Psychiatric Hx Hx Neurological and Psychiatric Disorders: Yes Neurological / Psychiatric History Comment: depression. Optical migraines. Had a complex (without a H/A) migraine. - Cancer History Hx Cancer: Yes Cancer History Comment: PROSTATE CA - Congenital Disorder History Hx Congenital Disorders: No - GI History Hx Gastrointestinal Disorders: Yes Gastrointestinal History Comment: CONSTIPATION FROM PAIN MEDICATIONS - Other Health History Other Health History: NONE - Chronic Pain History Chronic Pain: Yes (UPPER THORACIC AREA AND RIGHT SIDE OF BACK OF HEAD) - Surgical History Prior Surgeries: 02/2017 OPEN HEART - MITRAL/TRICUSPID VALVE REPLACEMENT. pacemaker insertion 04-12. mitral valve repair 04-12PAIN INJECTION WITH DR BRITTON 03/14/15. MANAGER OPERATIONS AND PROCUREMENT 02/03/15. THORACOTOMY 1993 D/T STREP PNA AND EMPYEMA. 1999 LEFT AND RIGHT SHOULDER SURGERIES. VASECTOMY ANE Review of Systems Review of Systems: - Exercise capacity METS (RN): 4 METS - Pacemaker Pacemaker Type: Permanent Pacer/Defib Pacemaker Pony Ride Operator: Biotronik Date Pacemaker Last Checked: 07-03-2017 ANE Patient History - Allergies Allergies/Adverse Reactions: ceftriaxone sodium [From Rocephin] Allergy (Severe, Verified 03/11/17 15:15) Other-Enter Comments cyclobenzaprine Allergy (Unknown, Unverified 04/05/17 15:21) Itching sulfamethoxazole Allergy (Unknown, Unverified 04/06/17 08:47) trimethoprim Allergy (Unknown, Unverified 04/05/17 15:21) Other-Enter Comments ceftriaxone sodium Allergy (Unknown, Uncoded 04/05/17 15:21) Other-Enter Comments - Home Medications Home Medications: morphINE SR [Ms Contin/Oramorph 15 mg (*)] 15 mg PO BID 06/12/15 [Last Taken ] Levothyroxine [Synthroid 100 mcg (*)] 100 mcg PO DAILY06 03/28/16 [Last Taken ] Multivitamins [Multivitamin (*)] 1 each PO DAILY 01/03/17 [Last Taken 09/11/17] Ibuprofen [Motrin (*)] 400 mg PO DAILY PRN 01/29/17 [Last Taken 09/08/17] Escitalopram Oxalate [Lexapro] 20 mg PO HS 03/11/17 [Last Taken 09/11/17] Propylene Glycol/Peg 400/Pf [Systane 0.3-0.4% Eye Drops] 1 drop EACHEYE BID [Last Taken 09/10/17] Iron 09/11/17 [Last Taken 09/11/17] oxyCODONE CR 09/11/17 [Last Taken 09/11/17] Lovenox 80 MG (*) 80 mg SQ 09/12/17 [Last Taken 09/11/17] - NPO status NPO Since - Liquids (Date): 09/12/17 NPO Since - Liquids (Time): 06:00 NPO Since - Solids (Date): 09/10/17 NPO Since - Solids (Time): 08:00 - Smoking Hx Smoking Status: Never smoked - Family Anes Hx Family Hx Anesthesia Complications: NONE ANE Labs/Vital Signs - Labs Result Diagrams: 09/12/17 10:00 - Vital Signs Blood Pressure: 121/80 Heart Rate: 68 Respiratory Rate: 16 O2 Sat (%): 98 Height: 180.34 cm Weight: 78.018 kg ANE Physical Exam - Airway Neck exam: FROM, decreased ROM Mallampati Score: Class 1 Mouth exam: normal dental/mouth exam - Pulmonary Pulmonary: no respiratory distress, no rales or rhonchi, clear to auscultation - Cardiovascular Cardiovascular: regular rate and rhythym, no murmur, rub, or gallop - ASA Status ASA Status: III ANE Anesthesia Plan Anesthesia Plan: general endotracheal anesthesia
[2017-09-12] MEDS ORDERED: SURGIFLO MATRIX KIT WITH THROMBIN 8 ML TP ONE (13:10)
[2017-09-12] MEDS ORDERED: ROCURONIUM 50 MG/5 ML VIAL ONE (13:22)
[2017-09-12] MEDS ORDERED: DEXAMETHASONE 4 MG/ML VIAL IVP PRN (13:25)
[2017-09-12] MEDS ORDERED: ALBUTEROL 3 ML DEYVIAL IH PRN (13:25)
[2017-09-12] MEDS ORDERED: LR 500 ML IV PRN (13:25)
[2017-09-12] MEDS ORDERED: ONDANSETRON 4 MG/2 ML VIAL IVP PRN ×2 (13:25→15:20)
[2017-09-12] MEDS ORDERED: DIAZEPAM 5 MG/ML 1 ML SYR IVP PRN (13:25)
[2017-09-12] MEDS ORDERED: NALOXONE HCL 0.4 MG/ML INJ IVP PRN ×2 (13:25→15:20)
[2017-09-12] MEDS ORDERED: THROMBIN(HUM PLAS)/FIBRINOG/CA 5 ML VIAL TP ONE (14:03)
[2017-09-12] MEDS: fentaNYL 100 MCG/2 ML INJ IVP PRN ×2 (15:01→15:13)
--- NOTE | 2017-09-12 15:15 | POSTANESTH ---
Post Anesthetic Evaluation Cardiovascular Status: Normal, Stable, Similar to Pre-Op Cond Respiratory Status: Normal, Stable, Similar to Pre-op Cond. Level of Consciousness/Mental Status: Mildly Sleepy, Arousable Pain Control: Adequate, Prn Tx Ordered Nausea/Vomiting Control: Adequate, Prn Tx Ordered Complications Possibly Related to Anesthesia: None Noted
[2017-09-12] MEDS ORDERED: METOCLOPRAMIDE 10 MG/2 ML VIAL IVP PRN (15:20)
[2017-09-12] MEDS ORDERED: HYDROmorphONE/DILAUDID 2 MG/ML INJ ONE ×2 (15:25→16:21)
--- NOTE | 2017-09-12 15:26 | POSTOPPROG ---
Post Op Note Date of Operation: 09/12/17 Surgeon: Klaus Owens Marketing Segment Manager: Nuvia Dior Anesthesiologist: Dr. Suh Anesthesia: GET(General Endotracheal) Pre-op Diagnosis: prostate cancer Procedure: RA-RRP and PLND Inf/Abcess present in the surg proc area at time of surgery?: No EBL: 100-500 Complications: none Drains: Iván Roa, Other (galvez) Specimen(s): sent, dictated
[2017-09-12] MEDS: HYDROmorphONE/DILAUDID 2 MG/ML INJ IVP PRN ×6 (15:27→16:24)
--- NOTE | 2017-09-12 15:43 | GOP ---
[f rep st] OPERATIVE REPORT DATE OF OPERATION: 09/12/2017 SURGEON: Klaus Owens MD BUILDING SERVICES SUPERVISOR: Nuvia Dior CFA. ANESTHESIA: Dr. Suh provided general anesthesia. PREOPERATIVE DIAGNOSIS: Adenocarcinoma of the prostate. POSTOPERATIVE DIAGNOSIS: Adenocarcinoma of the prostate. PROCEDURE PERFORMED: Robotic assisted radical prostatectomy and bilateral pelvic lymphadenectomy. FINDINGS: SPECIMENS: Prostate and lymph nodes, but it appeared mainly fatty tissue without any significant nod al tissue noted. ESTIMATED BLOOD LOSS: Anesthesia blood loss will be reported. DESCRIPTION OF PROCEDURE: After undergoing general anesthesia and being prepped and draped in normal sterile fashion in position for the robotic procedure, he had a Veress needle placed in supraumbilic al site. Intraabdominal pressure to 15 mmHg pressure, and then, a camera port was placed in the supr aumbilical site that was a 12 mm port, and then, three 8 mm ports, and an real estate legal assistant 12 mm port were p laced under direct vision. The inspection of the intraabdominal space revealed some adhesions from a prior appendectomy and the sigmoid colon was adhesed a bit to the left lateral wall, so I had to take those adhesions down and t hen the bowel was brought out of the pelvis, and then, a posterior approach first identifying the lef t seminal ampulla, vas deferens and dissected that across where I could identify the right vasa and a mpulla vas deferens. Hemostasis provided with Hem-o-loks. Vas deferens were transected, and then at that point, I dissected that posteriorly and developed a plane between the rectum and the prostate a ll the way to the apex. I then incised the endopelvic fascia on the right and left sides after dropp ing the bladder, and the deep dorsal vein was identified. He had some collateralization on the left side that had to the ligated, and then after I ligated the deep dorsal vein with 0 Vicryl, went to th e bladder neck and transected the bladder neck, identified the bladder neck, and preserved it through its entirety. There was a posterior appearing prostatic adenoma at the posterior bladder neck after removing the prostate that I excised. With the mobilization of the prostate, I used the tissue sealer device, and I elected to use this bec ause the patient will be anticoagulated postop, concerns of a postoperative hemorrhage, so the right side and left side remains with that after I transected the bladder neck brought the Vasa and seminal vesicles anterior to the bladder neck. Then, at that point, the apex was taken down and under close direct vision, it appeared to leave no prostatic tissue on the patient's side of the urethra. The s pecimen was removed, and then did a Paulino stitch with a V-Loc, and then, the anastomosis was performe d with 4-0 Monocryl and bridged with the Benson catheter, irrigated, was watertight. Surgiflo and Ariana lynette were used around in the pelvis and the bladder neck, mainly because with him needing Lovenox, I f elt that it would be best to try to prevent any significant bleeding postop with hematoma. At that point, the right and left lymph nodes were dissected out using the bifurcation of the iliac v eins, the obturator nerve dissection planes, made care not to cause any vascular or neural injury. H em-o-loks were used at the base to provide hemostasis. The tissue was mainly fatty tissue and did no t appear to have any significant lymphadenopathy or lymph node tissue. At that point, Iván-Roa drain had been placed in the space of Retzius and brought out through an 8 camera port site. The spe cimen placed was in a bag, and then was able to close the real estate legal assistant port site with a fascial closure device of 0 Vicryl, and then extended the supraumbilical incision so that we could remove the bag int act, and then closed the fascia in a lateral closure with an 0 Vicryl. The subcutaneous tissue was i rrigated. The skin was approximated with 4-0 Monocryl and drain sewn in place with a 3-0 silk. Blad noelle irrigated well. I inspected the specimen afterwards. It appeared there was no gross prostate cancer in the seminal v esicles or beyond the prostate and obviously we have to wait for microscopic exam. He will be admitt ed for postoperative care. I will discuss the findings and procedure with his . COMPLICATIONS: None. /[id number]/MODL
[2017-09-12] MEDS: HYDROCODONE/APAP 5/325 TAB PO PRN (17:51)
[2017-09-12] MEDS: HYDROmorphONE/DILAUDID 6 MG/30 ML PCA IV PRN (17:55)
[2017-09-12] MEDS ORDERED: NON-FORMULARY NEW DRUG (Escitalopram Oxalate [Lexapro] 20 MG) PO SCH (21:00)
[2017-09-12] MEDS: AMITRIPTYLINE HCL 25 MG TAB PO SCH (21:10)
[2017-09-12] MEDS: ESCITALOPRAM OXALATE 10 MG TAB PO SCH (21:11)
[2017-09-12] MEDS: morphINE SR 15 MG TAB PO SCH (21:11)
[2017-09-12] MEDS ORDERED: NS 500 ML IV ONE (22:30)
[2017-09-13 04:36] LABS: PLATELET COUNT 105 10^3/uL (150-400)
[2017-09-13] MEDS: LEVOTHYROXINE 100 MCG TAB PO SCH (04:58)
[2017-09-13] MEDS: HYDROCODONE/APAP 5/325 TAB PO PRN ×3 (04:58→23:29)
[2017-09-13] MEDS: morphINE SR 15 MG TAB PO SCH ×2 (08:13→20:44)
[2017-09-13] MEDS: HYDROmorphONE/DILAUDID 6 MG/30 ML PCA IV PRN ×2 (08:13→20:39)
[2017-09-13] MEDS: ASPIRIN 81 MG CHEWABLE TAB PO SCH (08:13)
--- NOTE | 2017-09-13 09:23 | SOAPPROG ---
SOAP Progress Note Assessment/Plan: Assessment: Prostate cancer Acute POD 1, continue care Plan: continue care, consider resuming Lovenox 09/13/17 11:00 Subjective: doing well, ambulating and no complaints Objective: Vital Signs Temp Pulse Resp BP Pulse Ox 36.7 C 70 16 124/75 H 100 09/13/17 04:00 09/13/17 08:00 09/13/17 08:00 09/13/17 08:00 09/13/17 08:00 Laboratory Results 09/13/17 04:08 09/13/17 04:08 09/12/17 09/13/17 09/14/17 05:59 05:59 05:59 Intake Total 2873.4 Output Total 1402 Balance 1471.4 PT 14.8 SEC (12.0-15.0) 09/12/17 10:00 INR 1.14 (0.83-1.16) 09/12/17 10:00 Physical Exam - Physical Exam General Appearance: alert EENT: No scleral icterus (L) Neck: supple Respiratory: No respiratory distress Abdomen: soft Back: No CVA tenderness Neuro/Psych: alert, oriented x 3 ICD10 Worksheet Patient Problems: Problems Problem Status Onset Prostate cancer Acute Atrial fibrillation Acute Bioprosthetic mitral valve replacement, current hospitalization Acute Complete heart block, post-surgical Acute Expressive aphasia Acute S/P AVR (aortic valve replacement) Acute S/P ablation operation for arrhythmia Acute Severe mitral regurgitation Acute Status post mitral valve repair Acute Status post placement of cardiac pacemaker Acute Status post tricuspid valve repair Acute Tachyarrhythmia Acute Tricuspid valve regurgitation, secondary Acute Chronic back pain Chronic Chronic narcotic dependence Chronic Hypothyroidism Chronic - ICD10 Problem Qualifiers (1) Prostate cancer
[2017-09-13] MEDS ORDERED: NS 1,000 ML IV ONE (11:01)
[2017-09-13] MEDS: ENOXAPARIN 40 MG/0.4 ML SYR SC SCH (11:45)
--- NOTE | 2017-09-13 15:33 | PDMN ---
Medical Necessity Medical necessity: change to IP; los>2mn s/p RA radical prostatectomy; requires ongoing post op care, drain management, and pain management w/dilaudid TELEVISION INSPECTOR; per order and progress note 09/13/17
--- NOTE | 2017-09-13 17:54 | ASMTCMCOM ---
CM Note CM Note Notes: Reviewed chart and discussed w/RN. Anticipate dc home w/ w/no CM needs. Date Signed: 09/13/2017 05:53 PM Electronically Signed By:Mila Jordan RN
[2017-09-13] MEDS: AMITRIPTYLINE HCL 25 MG TAB PO SCH (20:44)
[2017-09-13] MEDS: ESCITALOPRAM OXALATE 10 MG TAB PO SCH (20:44)
[2017-09-14 04:41] LABS: PLATELET COUNT 87 10^3/uL (150-400)
[2017-09-14] MEDS: HYDROCODONE/APAP 5/325 TAB PO PRN ×2 (05:27→18:21)
[2017-09-14] MEDS: LEVOTHYROXINE 100 MCG TAB PO SCH (05:28)
[2017-09-14] MEDS: morphINE SR 15 MG TAB PO SCH ×2 (08:36→20:40)
[2017-09-14] MEDS: ASPIRIN 81 MG CHEWABLE TAB PO SCH (08:37)
[2017-09-14] MEDS: ENOXAPARIN 40 MG/0.4 ML SYR SC SCH (08:37)
--- NOTE | 2017-09-14 11:08 | SOAPPROG ---
SOAP Progress Note Assessment/Plan: Assessment: Prostate cancer Acute POD 2, continue care Plan: continue care, resumed Lovenox 09/14/17 11:06 Subjective: improving Objective: Vital Signs Temp Pulse Resp BP Pulse Ox 36.5 C 74 16 120/76 96 09/14/17 10:10 09/14/17 10:10 09/14/17 10:10 09/14/17 10:10 09/14/17 10:10 Laboratory Results 09/14/17 04:20 09/14/17 04:20 09/13/17 09/14/17 09/15/17 05:59 05:59 05:59 Intake Total 2873.4 4619 Output Total 1402 1060 Balance 1471.4 3559 PT 14.8 SEC (12.0-15.0) 09/12/17 10:00 INR 1.14 (0.83-1.16) 09/12/17 10:00 Physical Exam - Physical Exam General Appearance: alert Neck: supple Respiratory: No respiratory distress Cardiac/Chest: regular rate, rhythm Abdomen: soft, other (mild distended) Back: No CVA tenderness Skin: warm/dry Extremities: No calf tenderness Neuro/Psych: alert, oriented x 3 ICD10 Worksheet Patient Problems: Problems Problem Status Onset Prostate cancer Acute Atrial fibrillation Acute Bioprosthetic mitral valve replacement, current hospitalization Acute Complete heart block, post-surgical Acute Expressive aphasia Acute S/P AVR (aortic valve replacement) Acute S/P ablation operation for arrhythmia Acute Severe mitral regurgitation Acute Status post mitral valve repair Acute Status post placement of cardiac pacemaker Acute Status post tricuspid valve repair Acute Tachyarrhythmia Acute Tricuspid valve regurgitation, secondary Acute Chronic back pain Chronic Chronic narcotic dependence Chronic Hypothyroidism Chronic - ICD10 Problem Qualifiers (1) Prostate cancer
[2017-09-14] MEDS ORDERED: NS 500 ML IV ONE (11:49)
[2017-09-14] MEDS: HYDROmorphONE/DILAUDID 6 MG/30 ML PCA IV PRN (13:28)
[2017-09-14] MEDS: D5W LR 1,000 ML IV SCH ×2 (13:29→22:40)
[2017-09-14] MEDS: ESCITALOPRAM OXALATE 10 MG TAB PO SCH (20:39)
[2017-09-14] MEDS: AMITRIPTYLINE HCL 25 MG TAB PO SCH (20:40)
[2017-09-15] MEDS: HYDROCODONE/APAP 5/325 TAB PO PRN ×5 (02:16→18:51)
[2017-09-15] MEDS: LEVOTHYROXINE 100 MCG TAB PO SCH (05:39)
[2017-09-15] MEDS: D5W LR 1,000 ML IV SCH (05:57)
[2017-09-15] MEDS: morphINE SR 15 MG TAB PO SCH (08:27)
[2017-09-15] MEDS: ASPIRIN 81 MG CHEWABLE TAB PO SCH (08:27)
--- NOTE | 2017-09-15 09:20 | SOAPPROG ---
SOAP Progress Note Assessment/Plan: Assessment: Prostate cancer Acute POD 3, DC yet will check cbc prior Plan: continue Lovenox, plan DC if cbc stable 09/15/17 09:37 Subjective: ambulating and ok to go, flatus ok Objective: Vital Signs Temp Pulse Resp BP Pulse Ox 36.6 C 71 16 124/84 H 96 09/15/17 08:00 09/15/17 08:00 09/15/17 08:00 09/15/17 08:00 09/15/17 08:00 Laboratory Results 09/14/17 04:20 09/14/17 04:20 09/14/17 09/15/17 09/16/17 05:59 05:59 05:59 Intake Total 4619 3097 Output Total 1060 2920 750 Balance 3559 177 -750 PT 14.8 SEC (12.0-15.0) 09/12/17 10:00 INR 1.14 (0.83-1.16) 09/12/17 10:00 Physical Exam - Physical Exam General Appearance: alert Neck: supple Respiratory: No respiratory distress Cardiac/Chest: regular rate, rhythm Back: No CVA tenderness Neuro/Psych: alert, oriented x 3 ICD10 Worksheet Patient Problems: Problems Problem Status Onset Prostate cancer Acute Atrial fibrillation Acute Bioprosthetic mitral valve replacement, current hospitalization Acute Complete heart block, post-surgical Acute Expressive aphasia Acute S/P AVR (aortic valve replacement) Acute S/P ablation operation for arrhythmia Acute Severe mitral regurgitation Acute Status post mitral valve repair Acute Status post placement of cardiac pacemaker Acute Status post tricuspid valve repair Acute Tachyarrhythmia Acute Tricuspid valve regurgitation, secondary Acute Chronic back pain Chronic Chronic narcotic dependence Chronic Hypothyroidism Chronic - ICD10 Problem Qualifiers (1) Prostate cancer
[2017-09-15] MEDS: HYDROmorphONE/DILAUDID 6 MG/30 ML PCA IV PRN (10:59)
[2017-09-15] MEDS: ENOXAPARIN 40 MG/0.4 ML SYR SC SCH (11:45)
[2017-09-15] MEDS: traMADol 50 MG TAB PO PRN (14:27)
[2017-09-15] MEDS: oxyCODONE IR 5 MG TAB PO SCH (21:16)
[2017-09-15] MEDS: AMITRIPTYLINE HCL 25 MG TAB PO SCH (21:17)
[2017-09-15] MEDS: ESCITALOPRAM OXALATE 10 MG TAB PO SCH (21:17)
[2017-09-15] MEDS: morphINE SR 30 MG TAB PO SCH (21:17)
--- NOTE | 2017-09-15 21:20 | GCON ---
[f rep st] CONSULTATION CARDIOLOGY CONSULTATION DATE OF CONSULTATION: 09/15/[address] Blayne Owens to see Renato Boggs status post prostatectomy. The patient has a history o f supraventricular tachycardia status post atrial tachycardia ablation. He also has valvular heart d isease with prior mitral valve and tricuspid valve repair as well as a dual-chamber pacemaker, prior atrial flutter ablation, a left atrial appendage ligation with associated thrombus. The patient is o n chronic Coumadin therapy because of the above and underwent prostatectomy under the care of Dr. Blayne Owens with bridged Lovenox. The patient underwent an RA-RP and PLND on 09/12/2017, under the care o f Dr. Blayne Owens. The patient's postoperative course has been relatively uncomplicated other than the presence of some microscopic and gross hematuria along with blood loss anemia and a probable consump tive thrombocytopenia. His platelet count on admission was 132. Platelet count has trended in the 8 0s to 90s range, and was 105, 87 and 91 on the , and of this month respectively. It do es appear to be stable. His hemoglobin and hematocrit are 10.9 and 33.0 this morning and stable. At the time of my evaluation, the patient denies chest pain, pressure, tightness, shortness of breath, or other clinical symptoms of concern. PHYSICAL EXAMINATION: VITAL SIGNS: His blood pressure this morning was 113/69, heart rate 70 and re gular, respirations 16 and unlabored. NECK: Reveals no JVD or carotid bruits. HEART: Reveals alex l S1, S2 with a systolic murmur consistent with prior mitral valve surgery. LUNGS: Clear to auscult ation bilaterally without wheezes, rales or rhonchi. ABDOMEN: Benign with positive bowel sounds. I t is nondistended and nontender. EXTREMITIES: Warm, dry, and well perfused without significant mikey pheral edema. He does have a Benson catheter in place with drainage of pink Lul-Aid colored urine an d without visible clots, consistent with gross hematuria. His laboratory studies are as previously mentioned. He is on a AMUSEMENT EQUIPMENT OPERATOR pump at present. There were inte rmittent low oxygen saturation signals and post ambulation the oxygen saturation was as low as 84. T he patient is alert, oriented x3, and is cooperative to his physical examination. He not does not ap pear to be anxious or depressed at present, and seems to be in good spirits considering his diagnosis and current situation. IMPRESSION AND PLAN: The patient has a history of valvular heart disease status post an atrial flutt er and atrial tachycardia ablation under the care of Dr. Darden. He has undergone a full prostatectomy and has anemia that is related to blood loss and consumptive thrombocytopenia which appears stable. I think it would be safe to resume his Lovenox on a once daily treatment along with his full-dose ant icoagulation if agreeable to Dr. Owens. The patient will be held overnight to monitor his oxygen sat uration and [place] [address] [place], we could consider giving him temporary supplemental oxygen a t home, especially if his ambulatory oxygen saturation appears to be low tomorrow. I explained to Sergey rodriguez and his that in a postoperative condition like this, in a patient who needs full-dose antic oagulation intermediate, that we are trying to get him anticoagulated as soon as safely possible, but al so to avoid major bleeding complications in the postoperative state. His risk of bleeding is higher secondary to the blood loss anemia and consumptive thrombocytopenia. However, his risk of clot forma tion and subsequent stroke is probably higher than average given his history of a prior left atrial a ppendage thrombus and his history of cardiac rhythm disturbance. He does seem to be in normal rhythm today. Since the plan is to keep him overnight, I think it would be reasonable for us to obtain an elective an EKG in the morning to ensure that the patient remains in an atrioventricular sequential p aced rhythm which should help to reduce his risk of thrombosis and stroke. I have discussed the case with the patient's charge nurse for the day on the oncology snow as well as Dr. Blayne Owens, and a tot al of 45 minutes coordinating the patient's care and seeing him today were performed. The majority o f this time spent in counseling the patient, examining him, reviewing his latest clinical data and th en formulating a plan for his anticoagulation and followup. Thank you Blayne, for allowing us to participate in the care of this very nice man. One of my partners will check in on him tomorrow prior to his discharge with further recommendations to follow. If ther e are any changes in his condition, please let us know immediately. Copy requested to: Primary Care Physician /[id number]/MODL
[2017-09-16] MEDS: traMADol 50 MG TAB PO PRN ×2 (00:11→05:38)
[2017-09-16] MEDS: HYDROCODONE/APAP 5/325 TAB PO PRN (02:22)
[2017-09-16] MEDS: LEVOTHYROXINE 100 MCG TAB PO SCH (05:38)
[2017-09-16 08:04] VITALS: BP 129/67
[2017-09-16] MEDS: oxyCODONE IR 5 MG TAB PO SCH (08:29)
[2017-09-16] MEDS: ASPIRIN 81 MG CHEWABLE TAB PO SCH (08:29)
[2017-09-16] MEDS: ENOXAPARIN 40 MG/0.4 ML SYR SC SCH (08:29)
[2017-09-16] MEDS: morphINE SR 30 MG TAB PO SCH (08:29)
--- NOTE | 2017-09-16 08:59 | SOAPPROG ---
SOAP Progress Note Assessment/Plan: Assessment: Prostate cancer Acute POD 4, DC Plan: continue Lovenox, plan DC 09/16/17 08:58 Subjective: ok and desires DC Objective: Vital Signs Temp Pulse Resp BP Pulse Ox 36.9 C 67 16 129/67 H 94 09/16/17 08:00 09/16/17 08:00 09/16/17 08:00 09/16/17 08:00 09/16/17 08:00 Laboratory Results 09/15/17 10:32 09/14/17 04:20 09/15/17 09/16/17 09/17/17 05:59 05:59 05:59 Intake Total 3097 400 Output Total 2920 4180 Balance 177 -3780 PT 14.8 SEC (12.0-15.0) 09/12/17 10:00 INR 1.14 (0.83-1.16) 09/12/17 10:00 Physical Exam - Physical Exam General Appearance: alert Respiratory: No respiratory distress Cardiac/Chest: regular rate, rhythm Abdomen: soft Neuro/Psych: alert, oriented x 3 ICD10 Worksheet Patient Problems: Problems Problem Status Onset Prostate cancer Acute Atrial fibrillation Acute Bioprosthetic mitral valve replacement, current hospitalization Acute Complete heart block, post-surgical Acute Expressive aphasia Acute S/P AVR (aortic valve replacement) Acute S/P ablation operation for arrhythmia Acute Severe mitral regurgitation Acute Status post mitral valve repair Acute Status post placement of cardiac pacemaker Acute Status post tricuspid valve repair Acute Tachyarrhythmia Acute Tricuspid valve regurgitation, secondary Acute Chronic back pain Chronic Chronic narcotic dependence Chronic Hypothyroidism Chronic - ICD10 Problem Qualifiers (1) Prostate cancer
--- NOTE | 2017-09-16 09:12 | ASMTLACE ---
LACE Length of stay for Answers: 4-6 days current admission Comorbidities - select Answers: Opioid dependence all that apply / Chronic pain Other Notes: Prostate cancer # of Emergency department Answers: 0 visits in the last 6 months Social determinants Answers: Mental health diagnosis (anxiety, depression, pers onality disorders, etc.) Score: 12 Date Signed: 09/16/2017 09:12 AM Electronically Signed By:Samra Guardado RN
--- NOTE | 2017-09-16 09:14 | ASMTCMCOM ---
CM Note CM Note Notes: Chart reviewed. Patient medically cleared for discharge to home independently. No needs identified. CM available should needs arise. Plan: Home Independent Date Signed: 09/16/2017 09:13 AM Electronically Signed By:Samra Guardado RN
[2017-09-16] MEDS ORDERED: oxyCODONE IR 5 MG TAB PO SCH (12:00)
== END 2017-09-16 14:17 | disposition home or self-care (01) | DRG 708 ==
LOC: OBSVTOIN 09:15 → F3E 09:15 → INTOOBSV 09:15 → F1N 11:43
PROVIDERS: ADMIT Specialist; ATTEND Specialist
PROC: 8E0W4CZ Robotic Assisted Procedure of Trunk Region, Percutaneous Endoscopic Approach (ICD-10-PCS; principal; 2017-09-12 10:45)
PROC: 0VT04ZZ Resection of Prostate, Percutaneous Endoscopic Approach (ICD-10-PCS; principal; 2017-09-12 10:45)
PROC: 07BC4ZX Excision of Pelvis Lymphatic, Percutaneous Endoscopic Approach, Diagnostic (ICD-10-PCS; principal; 2017-09-12 10:45)
DX: C61 Malignant neoplasm of prostate (principal); I48.91 Unspecified atrial fibrillation; Z95.0 Presence of cardiac pacemaker; Z79.01 Long term (current) use of anticoagulants
CPT/HCPCS: J1170; J1650; J2405; J2704; J2780; J3010; P9041

== ENCOUNTER 2017-09-23 09:28 | Emergency (ER) | payer OTHER, MEDICARE ==
[2017-09-23 11:09] LABS: PLATELET COUNT 293 10^3/uL (150-400)
[2017-09-23] MEDS ORDERED: IOPAMIDOL (ISOVUE-300) 100 ML BTL ONE (11:29)
--- NOTE | 2017-09-23 12:23 | EDPHY ---
H & P Stated Complaint: catheter pain Time Seen by Provider: 09/23/17 09:57 HPI/ROS: CHIEF COMPLAINT: Groin pain HISTORY OF PRESENT ILLNESS: 71-year-old male 1 week status post prostatectomy presents with groin pain. Onset of penile erythema 3 days ago. He was seen by Dr. Owens in the office on Saturday for a postoperative visit and leakage around the galvez catheter. Hematuria and groin pain started 2 days ago. The groin pain is moderate. Moderate/severe lower abd pain today, especially with movement and bumps in the road while driving. Associated with constipation. No fever or vomiting. REVIEW OF SYSTEMS: complete 10 point ROS negative except at noted in the HPI - Personal History Current Tetanus/Diphtheria Vaccine: Yes Current Tetanus Diphtheria and Acellular Pertussis (TDAP): Yes - Medical/Surgical History Hx Asthma: No Hx Chronic Respiratory Disease: Yes Hx Diabetes: No Hx Cardiac Disease: Yes Hx Renal Disease: No Hx Cirrhosis: No Hx Alcoholism: No Hx HIV/AIDS: No Hx Splenectomy or Spleen Trauma: No Other PMH: Mitral valve regurgitation, pacemaker, Atrial flutter, hypothyroidism , diastolic CHF, empyema and thoracotomy 1993, major depressive disorder.mitralvalve repair, tricuspid and mitral valve rings 04/12, chronic back pain x40yrs, scholiosis and congenital fusion, djd, WEARS C PAP AT HOME R/ T ELEVATION 8100ft - Social History Smoking Status: Never smoked Alcohol Use: Sober Drug Use: None Additional Social History: - Physical Exam Exam: General Appearance: Alert, pleasant Eyes: Pupils equal and round, no conjunctival pallor ENT, Mouth: Mucous membranes moist Neck: Normal inspection Respiratory: Lungs are clear to auscultation Cardiovascular: Regular rate and rhythm Gastrointestinal: Abdomen is soft, suprapubic tenderness, scattered ecchymosis over the abdominal wall Genitourinary: Erythema, warmth and tenderness glans of the penis, no drainage ; no tenderness or erythema of scrotum/perineum Neurological: A&O, nonfocal, normal gait Skin: Warm and dry Extremities: Normal inspection Psychiatric: Mood and affect normal Constitutional: Initial Vital Signs Temperature (C) 36.5 C 09/23/17 09:37 Heart Rate 86 09/23/17 09:37 Respiratory Rate 16 09/23/17 09:37 Blood Pressure 108/82 H 09/23/17 09:37 O2 Sat (%) 98 09/23/17 09:37 O2 Delivery Mode Room Air Allergies/Adverse Reactions: ceftriaxone sodium [From Rocephin] Allergy (Severe, Verified 09/23/17 09:34) Other-Enter Comments cyclobenzaprine Allergy (Unknown, Verified 09/23/17 09:34) Itching sulfamethoxazole Allergy (Unknown, Verified 09/23/17 09:34) trimethoprim Allergy (Unknown, Verified 09/23/17 09:34) Other-Enter Comments Sulfa (Sulfonamide Antibiotics) Allergy (Verified 09/23/17 09:34) Home Medications: Medication Instructions Recorded Amitriptyline HCl [Elavil] 25 mg PO HS #10 tab 03/29/16 Multivitamins [Multivitamin (*)] 1 each PO DAILY 01/03/17 Ibuprofen [Motrin (*)] 400 mg PO DAILY PRN 01/29/17 Acetaminophen [Tylenol 325mg (*)] 325 - 650 mg PO Q4HRS PRN tab 04/06/17 oxyCODONE IR [Oxycodone Ir (*)] 5 mg PO BID 09/12/17 Amitriptyline HCl [Elavil] 25 mg PO HS tab 09/15/17 Aspirin [Aspirin 81mg (*)] 81 mg PO DAILY tab.chew 09/15/17 Escitalopram Oxalate [Lexapro 10 20 mg PO HS tab 09/15/17 MG] Hydrocodone/APAP 5/325 [[place] 1 - 2 tab PO Q4HRS PRN tab 09/15/17 5/325 (*)] Levothyroxine [Synthroid 100 mcg 100 mcg PO DAILY06 tab 09/15/17 (*)] Warfarin Sodium [Coumadin 5MG (*)] 7.5 mg PO MWF@16 #0 09/15/17 morphINE SR [Ms Contin/Oramorph 15 15 mg PO BID tab 09/15/17 mg (*)] traMADol [Ultram 50 mg (*)] 50 mg PO Q4HRS PRN tab 09/15/17 Enoxaparin [Lovenox 80 MG (*)] 40 mg SQ DAILY #7 09/16/17 Cephalexin [Keflex (*)] 500 mg PO TID #30 cap 09/23/17 Medical Decision Making - Diagnostics Imaging Results: CT abd/pelvis: constipation, o/w unremarkable Imaging: Discussed imaging studies w/ call circuit worker Radiologist, I viewed and interpreted images myself ED Course/Re-evaluation: This patient presents with groin pain, cellulitis of the penis and hematuria. CT scan of the abdomen and pelvis ordered and is unremarkable, except for constipation. The Galvez catheter was irrigated and is functioning well, without blockage. Urinalysis reveals a probable urinary tract infection. Urine culture sent. Antibiotic choice discussed with the patient. He has tolerated Keflex well in the past so I will prescribe Keflex for the cellulitis and UTI, pending the urine culture. Consulted with Dr. Shelby to help arrange prompt f/u for pt. Differential Diagnosis: Differential diagnosis includes though it is not limited to abscess, necrotizing fasciitis, appendicitis, cholecystitis, diverticulitis, pyelonephritis, bowel perforation, small bowel obstruction. - Data Points Laboratory Results: Laboratory Results 09/23/17 10:55 09/23/17 10:55 Microbiology Results: MICROBIOLOGY 09/23/17 11:20 Urine,Clean Catch Urine Culture - Preliminary Klebsiella Pneumoniae Departure - Departure Disposition: Home, Routine, Self-Care Clinical Impression: Urinary tract infection, Cellulitis of penis Condition: Good Instructions: Urinary Tract Infection in Men (ED), Cellulitis (ED) Referrals: Klaus Owens MD [Medical Doctor] - 1 day without fail Prescriptions: Cephalexin [Keflex (*)] 500 mg PO TID #30 cap
[2017-09-23 12:38] VITALS: BP 139/77
== END 2017-09-23 13:25 | disposition home or self-care (01) ==
DX: N39.0 Urinary tract infection, site not specified (principal); N48.22 Cellulitis of corpus cavernosum and penis; B96.1 Klebsiella pneumoniae [K. pneumoniae] as the cause of diseases classified elsewhere; Z79.01 Long term (current) use of anticoagulants; Z79.82 Long term (current) use of aspirin
CPT/HCPCS: 74177; 99285; Q9967; 82947-QW

== ENCOUNTER → 2017-09-30 | Outpatient (CLI) | payer OTHER, MEDICARE ==
[~2017-09-30] MED LIST: IOTHALAMATE MEG (CYSTO-CONRAY II) 250 ML VIAL BLADIN ONE
== END ==
LOC: FIMAGING 12:55
PROVIDERS: ATTEND Physician Assistant Medical
PROC: 3E0 Administration, Physiological Systems and Anatomical Regions, Introduction (ICD-10-PCS; principal; 2017-09-30)
DX: Z46.6 Encounter for fitting and adjustment of urinary device (principal); Z90.79 Acquired absence of other genital organ(s)
CPT/HCPCS: 51600; 74455; Q9961

== ENCOUNTER 2017-10-03 22:12 | Emergency (ER) | payer OTHER, MEDICARE ==
[2017-10-03 22:56] LABS: PLATELET COUNT 228 10^3/uL (150-400)
[2017-10-03 23:04] LABS: INR 1.56 (0.83-1.16); PROTIME(PATIENT) 18.8 SEC (12.0-15.0)
--- NOTE | 2017-10-04 00:07 | EDPHY ---
H & P Stated Complaint: Bleeding from penis - prostate removed on September 13 Time Seen by Provider: 10/03/17 22:39 HPI/ROS: HPI The patient presents with hematuria which has been present for the last several hours. He initially noted a small amount of blood in his diaper which he has been wearing for urinary incontinence since his Benson catheter was removed a few days ago. He then noticed that the bleeding became more brisk, he had to change his diaper several times. He called the urologist Dr. Hill and decided to come into the emergency department. While he was in the emergency department he passed a large clot and then was able to pass clear urine. He does not have any pain currently.. REVIEW OF SYSTEMS Constitutional: No fever, no chills. Eyes: No discharge. ENT: No sore throat. Cardiovascular: No chest pain, no palpitations. Respiratory: No cough, no shortness of breath. Gastrointestinal: No abdominal pain, no vomiting. Genitourinary: No hematuria. Musculoskeletal: No back pain. Skin: No rashes. Neurological: No headache. PMHx: Robotic assisted radical prostatectomy performed on September [address] Owens , patient had Benson in place postoperatively Soc Hx: Housed PHYSICAL General Appearance: Alert, no distress Eyes: Pupils equal and round no pallor or injection ENT, Mouth: Mucous membranes moist Respiratory: There are no retractions, lungs are clear to auscultation Cardiovascular: Regular rate and rhythm Gastrointestinal: Abdomen is soft and non-tender, no masses, bowel sounds normal Neurological: A&O, moves all extremities Skin: Warm and dry, no rashes Musculoskeletal: Neck is supple non tender Extremities: symmetrical, full range of motion Psychiatric: Patient is oriented X 3, there is no agitation Source: Patient Exam Limitations: No limitations - Personal History Current Tetanus/Diphtheria Vaccine: Yes Current Tetanus Diphtheria and Acellular Pertussis (TDAP): Yes - Medical/Surgical History Hx Asthma: No Hx Chronic Respiratory Disease: Yes Hx Diabetes: No Hx Cardiac Disease: Yes Hx Renal Disease: No Hx Cirrhosis: No Hx Alcoholism: No Hx HIV/AIDS: No Hx Splenectomy or Spleen Trauma: No Other PMH: Mitral valve regurgitation, pacemaker, Atrial flutter, hypothyroidism , diastolic CHF, empyema and thoracotomy 1993, major depressive disorder.mitralvalve repair, tricuspid and mitral valve rings 04/12, chronic back pain x40yrs, scholiosis and congenital fusion, djd, WEARS C PAP AT HOME R/ T ELEVATION 8100ft - Social History Smoking Status: Never smoked Constitutional: Initial Vital Signs Temperature (C) 36.6 C 10/03/17 22:16 Heart Rate 84 10/03/17 22:16 Respiratory Rate 16 10/03/17 22:16 Blood Pressure 135/80 H 10/03/17 22:16 O2 Sat (%) 98 10/03/17 22:16 O2 Delivery Mode Room Air Allergies/Adverse Reactions: ceftriaxone sodium [From Rocephin] Allergy (Severe, Verified 09/23/17 09:34) Other-Enter Comments cyclobenzaprine Allergy (Unknown, Verified 09/23/17 09:34) Itching sulfamethoxazole Allergy (Unknown, Verified 09/23/17 09:34) trimethoprim Allergy (Unknown, Verified 09/23/17 09:34) Other-Enter Comments Sulfa (Sulfonamide Antibiotics) Allergy (Verified 09/23/17 09:34) Home Medications: Medication Instructions Recorded Amitriptyline HCl [Elavil] 25 mg PO HS #10 tab 03/29/16 Multivitamins [Multivitamin (*)] 1 each PO DAILY 01/03/17 Ibuprofen [Motrin (*)] 400 mg PO DAILY PRN 01/29/17 Acetaminophen [Tylenol 325mg (*)] 325 - 650 mg PO Q4HRS PRN tab 04/06/17 oxyCODONE IR [Oxycodone Ir (*)] 5 mg PO BID 09/12/17 Amitriptyline HCl [Elavil] 25 mg PO HS tab 09/15/17 Escitalopram Oxalate [Lexapro 10 20 mg PO HS tab 09/15/17 MG] Hydrocodone/APAP 5/325 [I[place] 1 - 2 tab PO Q4HRS PRN tab 09/15/17 5/325 (*)] Levothyroxine [Synthroid 100 mcg 100 mcg PO DAILY06 tab 09/15/17 (*)] Warfarin Sodium [Coumadin 5MG (*)] 7.5 mg PO MWF@16 #0 09/15/17 morphINE SR [Ms Contin/Oramorph 15 15 mg PO BID tab 09/15/17 mg (*)] traMADol [Ultram 50 mg (*)] 50 mg PO Q4HRS PRN tab 09/15/17 Medical Decision Making Differential Diagnosis: This is a 71-year-old male who presents with hematuria for the last several hours which was brisk though now has improved after passing a clot. He is on Coumadin for prosthetic valve replacement. In the emergency department, postvoid residual was performed and was 80 mL. INR was 1.6. Hemoglobin was stable on par with prior values. UA showed hematuria. The patient continued to feel better with no ongoing significant hematuria. I consulted with Dr. Hill who is on-call for Dr. Owens. Given that the patient' s postvoid residual is normal he would like to avoid Benson placement in the patient. However it is possible the patient developed another clot he may require 1. The patient does not want to have a catheter placed at this time, thus we have decided that the patient will follow up with Dr. Owens in the next few days with plans to drink plenty of fluids until then. - Data Points Laboratory Results: Laboratory Results 10/03/17 22:45 10/03/17 22:45 10/03/17 10/03/17 10/03/17 23:45 22:45 22:45 WBC RBC Hgb Hct MCV MCH MCHC RDW Plt Count MPV Neut % (Auto) Lymph % (Auto) [place] % (Auto) Eos % (Auto) Baso % (Auto) Nucleat RBC Rel Count Absolute Neuts (auto) Absolute Lymphs (auto) Absolute Monos (auto) Absolute Eos (auto) Absolute Basos (auto) Absolute Nucleated RBC Immature Gran % Immature Gran # PT 18.8 SEC H SEC (12.0-15.0) INR 1.56 H (0.83-1.16) APTT 38.8 SEC H SEC (23.0-38.0) Sodium 137 mEq/L mEq/L (135-145) Potassium 4.1 mEq/L mEq/L (3.3-5.0) Chloride 102 mEq/L mEq/L (97-110) Carbon Dioxide 24 mEq/l mEq/l (22-31) Anion Gap 11 mEq/L mEq/L (8-16) BUN 29 mg/dL H mg/dL (7-23) Creatinine 1.0 mg/dL mg/dL (0.7-1.3) Estimated GFR > 60 Glucose 97 mg/dL mg/dL (70-100) Calcium 8.7 mg/dL mg/dL (8.5-10.4) Urine Color YELLOW Urine Appearance TURBID Urine pH 7.0 (5.0-7.5) Ur Specific [place] 1.017 (1.002-1.030) Urine Protein 3+ H (NEGATIVE) Urine Ketones NEGATIVE (NEGATIVE) Urine Blood 3+ H (NEGATIVE) Urine Nitrate NEGATIVE (NEGATIVE) Urine Bilirubin NEGATIVE (NEGATIVE) Urine Urobilinogen NEGATIVE EU EU (0.2-1.0) Ur Leukocyte Esterase NEGATIVE (NEGATIVE) Urine RBC 50-182 /hpf H /hpf (0-3) Urine WBC 50-182 /hpf H /hpf (0-3) Ur Epithelial Cells NONE SEEN /lpf /lpf (NONE-1+) Urine Glucose NEGATIVE (NEGATIVE) 10/03/17 22:45 WBC 5.64 10^3/uL 10^3/uL (3.80-9.50) RBC 3.79 10^6/uL L 10^6/uL (4.40-6.38) Hgb 12.0 g/dL L g/dL (13.7-17.5) Hct 34.6 % L % (40.0-51.0) MCV 91.3 fL fL (81.5-99.8) MCH 31.7 pg pg (27.9-34.1) MCHC 34.7 g/dL g/dL (32.4-36.7) RDW 13.9 % % (11.5-15.2) Plt Count 228 10^3/uL 10^3/uL (150-400) MPV 9.2 fL fL (8.7-11.7) Neut % (Auto) 50.6 % % (39.3-74.2) Lymph % (Auto) 35.1 % % (15.0-45.0) [place] % (Auto) 9.8 % % (4.5-13.0) Eos % (Auto) 3.9 % % (0.6-7.6) Baso % (Auto) 0.4 % % (0.3-1.7) Nucleat RBC Rel Count 0.0 % % (0.0-0.2) Absolute Neuts (auto) 2.86 10^3/uL 10^3/uL (1.70-6.50) Absolute Lymphs (auto) 1.98 10^3/uL 10^3/uL (1.00-3.00) Absolute Monos (auto) 0.55 10^3/uL 10^3/uL (0.30-0.80) Absolute Eos (auto) 0.22 10^3/uL 10^3/uL (0.03-0.40) Absolute Basos (auto) 0.02 10^3/uL 10^3/uL (0.02-0.10) Absolute Nucleated RBC 0.00 10^3/uL 10^3/uL (0-0.01) Immature Gran % 0.2 % % (0.0-1.1) Immature Gran # 0.01 10^3/uL 10^3/uL (0.00-0.10) PT INR APTT Sodium Potassium Chloride Carbon Dioxide Anion Gap BUN Creatinine Estimated GFR Glucose Calcium Urine Color Urine Appearance Urine pH Ur Specific [place] Urine Protein Urine Ketones Urine Blood Urine Nitrate Urine Bilirubin Urine Urobilinogen Ur Leukocyte Esterase Urine RBC Urine WBC Ur Epithelial Cells Urine Glucose Departure - Departure Disposition: Home, Routine, Self-Care Clinical Impression: Hematuria Qualifiers: Hematuria type: unspecified type Qualified Code(s): R31.9 - Hematuria, unspecified Condition: Good Instructions: Hematuria (ED) Additional Instructions: Please return to the emergency department if you are worse in any way. You should follow up with Dr. Owens on the phone tomorrow. Referrals: Kwan Evans MD [Primary Care Provider] - As per Instructions Klaus Owens MD [Medical Doctor] - As per Instructions
[2017-10-04 00:19] VITALS: BP 128/75
== END 2017-10-04 00:18 | disposition home or self-care (01) ==
DX: R31.9 Hematuria, unspecified (principal); I50.9 Heart failure, unspecified; Z79.01 Long term (current) use of anticoagulants; Z95.0 Presence of cardiac pacemaker

== ENCOUNTER → 2018-08-18 | Outpatient (CLI) | payer OTHER, MEDICARE | LOC: FIMAGING 15:41 | PROVIDERS: ATTEND Family Medicine | DX: J06.9 Acute upper respiratory infection, unspecified (principal); J40 Bronchitis, not specified as acute or chronic ==

== ENCOUNTER → 2018-09-18 | Outpatient (CLI) | payer OTHER, MEDICARE | LOC: BHFA 13:15 | PROVIDERS: ATTEND Internal Medicine Cardiovascular Disease | DX: R06.02 Shortness of breath (principal); I05.9 Rheumatic mitral valve disease, unspecified ==

== ENCOUNTER 2018-09-21 10:09 | Emergency (ER) | payer OTHER, MEDICARE ==
--- NOTE | 2018-09-21 11:19 | EDPHY ---
General Time Seen by Provider: 09/21/18 11:19 Narrative: CLINICAL IMPRESSION: Tick Bite, erythema migrans ASSESSMENT/PLAN: Patient is a 72-year-old male who presents with complaints of tick bite with rash. Patient is afebrile and not toxic appearing, no acute distress. His neurological exam is grossly normal with no focal deficit. Physical exam reveals 5 cm raised lesion around tick bite consistent with erythema migrans. He had a brief period of tingling to his lips which resolved after taking Claritin, he had no other physical complaints. There were no findings to suggest systemic infection, abscess, necrotizing skin infection, drug reaction, SJS/TENS, varicella virus, erythema infectiosum, viral exanthem, or meningitis. With isolated target lesion and no other complaints, no findings to suggest multiple lesions, neurological deficit or disseminated process. He was given first dose of doxycycline and will continue as an outpatient. We discussed following up with his primary care provider prior to leaving on his rafting trip on Saturday. Return precautions discussed. ED COURSE: 1145: Case and plan of care discussed with Dr. Lee. CHIEF COMPLAINT: Tick Bite, "target lesion" HPI: Patient is a 72-year-old male with a history of aortic and mitral valve replacement currently on Coumadin who presents to the ED after finding a tick on him yesterday, now with a notable rash around the site. Patient has mild discomfort at the tick bite site, reports it as mostly itchy in nature. Patient reports earlier this morning he had a brief period of feeling like his lips were tingling, he took a Claritin and this resolved. He denies any other physical complaints including fever, myalgias, GALLO, decreased sensation, weakness , CP, SOB, N/V/D, difficulty walking, ataxia or other rash. He is up-to-date on his tetanus. He is planning to leave for a rafting trip on Saturday and wanted to be checked prior to leaving. ROS: Otherwise negative, please see HPI. PHYSICAL EXAM: General Appearance: Well-developed, well-appearing and in no acute distress. Respiratory: There are no retractions, lungs are clear to auscultation. Cardiac: Regular rate and rhythm, no murmurs or gallops. Gastrointestinal: Abdomen is soft, nontender, bowel sounds normal, no masses/ hernia, no rigidity, guarding or focal peritoneal findings. Skin: 5 cm circular lesion around notable bite with kiersten surrounding erythema consistent with erythema migrans on his right anterior chest. Area marked. No other rash or lesions noted. Warm, dry. Neuro: Alert and oriented x3, Cranial nerves 2-12 grossly intact. No focal deficit. Normal strength and sensation, normal gait without ataxia. Psych: Normal mood, normal affect. No agitation. MEDICAL DECISION MAKING: Patient was seen independently. Secondary supervising physician at time of evaluation was Dr. Lee, she did not evaluate this patient. Diagnosis: Tick bite, erythema migrans. Summary: See Assessment and Plan for summary of ED visit Decision to obtain medical records or history from someone other than the patient: No Review / Summarize previous medical records: Yes Discussed patient with another provider: Yes, Dr. Lee Dispo: Stable, discharge. - History Smoking Status: Never smoked - Objective Vital Signs: Initial Vital Signs Temperature (C) 36.6 C 09/21/18 10:13 Heart Rate 75 09/21/18 10:13 Respiratory Rate 16 09/21/18 10:13 Blood Pressure 120/82 H 09/21/18 10:13 O2 Sat (%) 97 09/21/18 10:13 O2 Delivery Mode Room Air Allergies/Adverse Reactions: ceftriaxone sodium [From Rocephin] Allergy (Severe, Verified 09/23/17 09:34) Other-Enter Comments cyclobenzaprine Allergy (Unknown, Verified 09/23/17 09:34) Itching sulfamethoxazole Allergy (Unknown, Verified 09/23/17 09:34) trimethoprim Allergy (Unknown, Verified 09/23/17 09:34) Other-Enter Comments Sulfa (Sulfonamide Antibiotics) Allergy (Verified 09/23/17 09:34) Home Medications: Medication Instructions Recorded Doxycycline Hyclate 100 mg PO BID #20 tab 09/21/18 Escitalopram Oxalate 09/21/18 Gabapentin 09/21/18 Levothyroxine 09/21/18 Morphine Sulfate Cr 09/21/18 Warfarin Sodium 09/21/18 oxyCODONE CR 09/21/18 Medications Given: Discontinued Medications Doxycycline Hyclate (Doxycycline Hyclate) 100 mg PO EDNOW ONE PRN Reason: Protocol Stop: 09/21/18 11:21 Last Admin: 09/21/18 11:36 Dose: 100 mg Departure - Departure Disposition: Home, Routine, Self-Care Clinical Impression: Erythema migrans (Lyme disease) Condition: Good Instructions: Tick Bite (ED) Additional Instructions: DISCHARGE INSTRUCTIONS FROM YOUR PROVIDER Thank you for visiting our emergency department today. Rest, drink plenty of fluids, healthy foods, all to to help your immune system fight the infection and to help the healing process. Keep the wound area clean. Wear loose clothing. Clean the wound areas with soap and water, at least twice daily. Doxycycline for the next 10 days. Consume yogurt and take over the counter probiotics to help prevent diarrhea from the antibiotics. Ibuprofen as directed every 6-8 hours with food as needed for pain and/or fever. Stop if this upsets your stomach. Tylenol as directed every 4-6 hours as directed for pain and/or fever. Do not exceed 4000 mg in 24 hours. Continue your regular medications as prescribed. Schedule a follow-up appointment with your primary care physician in the next 24 -48 hours for a wound check to ensure you are healing and don't require further antibiotics or intervention. Return for persistent or recurrent fever, vomiting, inability to tolerate the antibiotic(s) by mouth, redness, swelling, warmth, or streaking around the wound , increased redness outside the marked lines, new lesions, extremity swelling, pain out of proportion to what you would expect for this infection, chest or abdominal pain, vomiting, throat tightness, facial swelling, difficulty breathing or swallowing, sores in the mouth or the eyes, or for any other new, worsening or worrisome symptoms. Also return for any numbness or tingling of your extremities, ataxia or focal weakness. People present with illnesses and injuries in different ways, and it is always possible that we have missed something. Again, thank you for choosing our emergency department. We hope that you feel better. Referrals: Kwan Evans MD [Primary Care Provider] - As per Instructions Prescriptions: Doxycycline Hyclate 100 mg PO BID #20 tab
[2018-09-21] MEDS ORDERED: DOXYCYCLINE HYCLATE 100 MG CAP/TAB PO ONE (11:20)
[2018-09-21 12:03] VITALS: BP 133/79
== END 2018-09-21 12:02 | disposition home or self-care (01) ==
DX: A69.20 Lyme disease, unspecified (principal)

== ENCOUNTER 2018-10-08 07:12 | Inpatient (IN) | payer OTHER, MEDICARE | END 2018-10-11 11:59 | disposition home or self-care (01) | LOC: F3E 13:31 ==